=== PATIENT | male | born 1945 | race Caucasian/White ===

== ENCOUNTER 2017-11-06 20:31 | Emergency (ER) | payer MEDICARE ==
[2017-11-06] MEDS: ACETAMINOPHEN 325 MG TAB PO (21:45)
[2017-11-06 22:21] LABS: INFLUENZA A AMPLIFICATION NEGATIVE (NEGATIVE); INFLUENZA B AMPLIFICATION NEGATIVE (NEGATIVE)
[2017-11-06 22:54] LABS: BASO # 0.1 10^3/uL (0.0-0.2); BASO % 0.4 % (0.0-1.0); EOS % 0.3 % (0.0-3.0); HEMATOCRIT 44.7 % (42.0-52.0); HEMOGLOBIN 15.8 g/dl (14.0-18.0); IMMATURE GRANULOCYTE % 0.8 % (0-3.0); LYMPH # 0.5 10^3/uL (1.5-4.5); LYMPH % 4.4 % (24.0-44.0); MEAN CORPUSCULAR HEMOGLOBIN 31.7 pg (27.0-33.0); MEAN CORPUSCULAR HGB CONC 35.3 g/dl (32.0-36.5); MEAN CORPUSCULAR VOLUME 89.8 fl (80.0-96.0); NEUTROPHILS # 10.3 10^3/uL (1.8-7.7); NEUTROPHILS % 86.1 % (36.0-66.0); PLATELET COUNT, AUTOMATED 123 10^3/uL (150-450); RED BLOOD COUNT 4.98 10^6/uL (4.30-6.10); RED CELL DISTRIBUTION WIDTH 13.6 % (11.5-14.5)
[2017-11-06 23:06] LABS: INR 2.37; PROTHROMBIN TIME 26.8 SECONDS (12.4-14.5)
[2017-11-06 23:07] LABS: PARTIAL THROMBOPLASTIN TIME 50.4 SECONDS (26.8-37.9)
[2017-11-06 23:08] LABS: LACTIC ACID SEPSIS PROTOCOL 1.5 MMOL/L (0.4-2.0)
[2017-11-06 23:10] LABS: ANION GAP 8 MEQ/L (8-16); BLOOD UREA NITROGEN 23 MG/DL (7-18); CALCIUM LEVEL 8.9 MG/DL (8.8-10.2); CARBON DIOXIDE LEVEL 26 MEQ/L (21-32); CHLORIDE LEVEL 99 MEQ/L (98-107); CREATININE FOR GFR 1.24 MG/DL (0.70-1.30); GLOMERULAR FILTRATION RATE > 60.0 (>42); GLUCOSE, FASTING 383 MG/DL (70-100); POTASSIUM SERUM 4.5 MEQ/L (3.5-5.1); SODIUM LEVEL 133 MEQ/L (136-145)
[2017-11-06] MEDS: AZITHROMYCIN 250 MG TAB PO (23:54)
[2017-11-06] MEDS: CEFUROXIME 500 MG TAB PO (23:55)
== END 2017-11-07 00:04 | disposition home or self-care (01) ==
LOC: M ED 11-07 00:04
DX: J18.9 Pneumonia, unspecified organism (principal); E11.9 Type 2 diabetes mellitus without complications; I10 Essential (primary) hypertension; E78.5 Hyperlipidemia, unspecified; Z95.1 Presence of aortocoronary bypass graft; Z95.0 Presence of cardiac pacemaker; Z87.891 Personal history of nicotine dependence; Z79.899 Other long term (current) drug therapy; Z79.82 Long term (current) use of aspirin; Z79.01 Long term (current) use of anticoagulants
CPT/HCPCS: 71046

== ENCOUNTER 2018-07-05 11:13 | Inpatient (IN) | payer OTHER ==
[2018-07-05 11:59] LABS: BASO % 0.3 % (0.0-1.0); EOS % 0.2 % (0.0-3.0); HEMATOCRIT 45.9 % (42.0-52.0); HEMOGLOBIN 16.2 g/dl (13.5-17.5); IMMATURE GRANULOCYTE % 0.3 % (0-3.0); LYMPH # 0.9 10^3/uL (1.5-4.5); LYMPH % 7.7 % (24.0-44.0); MEAN CORPUSCULAR HEMOGLOBIN 32.1 pg (27.0-33.0); MEAN CORPUSCULAR HGB CONC 35.3 g/dl (32.0-36.5); MEAN CORPUSCULAR VOLUME 90.9 fl (80.0-96.0); MONO # 0.8 10^3/uL (0.0-0.8); MONO % 6.7 % (0.0-5.0); NEUTROPHILS # 9.7 10^3/uL (1.8-7.7); NEUTROPHILS % 84.8 % (36.0-66.0); PLATELET COUNT, AUTOMATED 159 10^3/uL (150-450); RED BLOOD COUNT 5.05 10^6/uL (4.30-6.10); RED CELL DISTRIBUTION WIDTH 14.2 % (11.5-14.5); WHITE BLOOD COUNT 11.5 10^3/uL (4.0-10.0)
[2018-07-05 12:08] LABS: INR 1.99
[2018-07-05 12:09] LABS: PARTIAL THROMBOPLASTIN TIME 38.6 SECONDS (25.4-37.6)
[2018-07-05 12:27] LABS: ANION GAP 9 MEQ/L (8-16); BLOOD UREA NITROGEN 21 MG/DL (7-18); CALCIUM LEVEL 9.1 MG/DL (8.8-10.2); CARBON DIOXIDE LEVEL 25 MEQ/L (21-32); CHLORIDE LEVEL 102 MEQ/L (98-107); CPK CREATINE PHOSPHOKINASE 114 U/L (39-308); CREATININE FOR GFR 1.09 MG/DL (0.70-1.30); GLOMERULAR FILTRATION RATE > 60.0 (>42); GLUCOSE, FASTING 227 MG/DL (70-100); MB/CK RELATIVE INDEX 2.98 (< OR =4); POTASSIUM SERUM 4.3 MEQ/L (3.5-5.1); SODIUM LEVEL 136 MEQ/L (136-145); TROPONIN I < 0.02 NG/ML (< 0.10)
[2018-07-05] MEDS ORDERED: ISOVUE-370 76% 100ML VIAL (Q9967) As Ordered (12:34)
[2018-07-05] MEDS ORDERED: ACETAMINOPHEN TAB 650MG DOSE (2X325MG) PO (15:30)
[2018-07-05] MEDS ORDERED: DEXTROSE 50% 50 ML SYRINGE IV (16:00)
[2018-07-05] MEDS ORDERED: GLUCAGON FOR INJ 1 MG VIAL (J1610) SC (16:00)
[2018-07-05] MEDS ORDERED: GLUCOSE 4 GM CHEW TABLET PO (16:00)
[2018-07-05 16:40] LABS: PARTIAL THROMBOPLASTIN TIME 38.6 SECONDS (25.4-37.6)
[2018-07-05] MEDS: HEPARIN DRIP 25,000 UNITS in APPROPRIATE DILUENT 1 EA IV (17:37)
[2018-07-05 17:39] LABS: BEDSIDE GLUCOSE 174 MG/DL (83-110)
[2018-07-05] MEDS: WARFARIN SOD 5 MG TAB PO (17:42)
[2018-07-05] MEDS: HumaLOG INSULIN (NovoLOG) PER UNIT SC ×2 (17:43→20:44)
[2018-07-05 18:43] LABS: CPK CREATINE PHOSPHOKINASE 119 U/L (39-308); MB/CK RELATIVE INDEX 2.69 (< OR =4); TROPONIN I 0.03 NG/ML (< 0.10)
[2018-07-05 20:38] LABS: BEDSIDE GLUCOSE 289 MG/DL (83-110)
[2018-07-05] MEDS: SIMVASTATIN 40 MG TAB PO (20:43)
[2018-07-06 00:36] LABS: PARTIAL THROMBOPLASTIN TIME 111.1 SECONDS (25.4-37.6)
[2018-07-06 02:58] LABS: CPK CREATINE PHOSPHOKINASE 163 U/L (39-308); TROPONIN I 0.04 NG/ML (< 0.10)
[2018-07-06 05:10] LABS: HEMATOCRIT 43.2 % (42.0-52.0); HEMOGLOBIN 15.3 g/dl (13.5-17.5); MEAN CORPUSCULAR HEMOGLOBIN 31.7 pg (27.0-33.0); MEAN CORPUSCULAR HGB CONC 35.4 g/dl (32.0-36.5); MEAN CORPUSCULAR VOLUME 89.4 fl (80.0-96.0); PLATELET COUNT, AUTOMATED 150 10^3/uL (150-450); RED BLOOD COUNT 4.83 10^6/uL (4.30-6.10); WHITE BLOOD COUNT 11.7 10^3/uL (4.0-10.0)
[2018-07-06 05:34] LABS: ALBUMIN 3.7 GM/DL (3.2-5.2); ALBUMIN/GLOBULIN RATIO 1.12 (1.00-1.93); ALKALINE PHOSPHATASE 80 U/L (45-117); ALT/SGPT 28 U/L (12-78); ANION GAP 10 MEQ/L (8-16); AST/SGOT 24 U/L (7-37); BILIRUBIN,TOTAL 1.4 MG/DL (0.2-1.0); BLOOD UREA NITROGEN 16 MG/DL (7-18); CALCIUM LEVEL 8.9 MG/DL (8.8-10.2); CARBON DIOXIDE LEVEL 25 MEQ/L (21-32); CHLORIDE LEVEL 104 MEQ/L (98-107); CHOLESTEROL LEVEL 123 MG/DL (<200); CHOLESTEROL RISK RATIO 2.562 (<5); CREATININE FOR GFR 0.88 MG/DL (0.70-1.30); GLOMERULAR FILTRATION RATE > 60.0 (>42); GLUCOSE, FASTING 182 MG/DL (70-100); HDL CHOLESTEROL 48 MG/DL (>40); LDL CHOLESTEROL 66 MG/DL (<100); NON-HDL-C 75 MG/DL; POTASSIUM SERUM 3.8 MEQ/L (3.5-5.1); SODIUM LEVEL 139 MEQ/L (136-145); TRIGLYCERIDES LEVEL 47 MG/DL (<150)
[2018-07-06 05:38] LABS: INR 2.39; PROTHROMBIN TIME 26.6 SECONDS (12.1-14.4)
[2018-07-06 08:46] LABS: PARTIAL THROMBOPLASTIN TIME 146.9 SECONDS (25.4-37.6)
[2018-07-06] MEDS: LISINOPRIL 20 MG TAB PO (09:22)
[2018-07-06] MEDS: ASPIRIN 81 MG ENTERIC TAB PO (09:22)
[2018-07-06] MEDS: HumaLOG INSULIN (NovoLOG) PER UNIT SC ×4 (09:22→20:32)
[2018-07-06 10:47] LABS: CPK CREATINE PHOSPHOKINASE 188 U/L (39-308); MB/CK RELATIVE INDEX 2.13 (< OR =4); TROPONIN I 0.03 NG/ML (< 0.10)
[2018-07-06 11:19] LABS: BEDSIDE GLUCOSE 258 MG/DL (83-110)
[2018-07-06] MEDS: HEPARIN DRIP 25,000 UNITS in APPROPRIATE DILUENT 1 EA IV (13:22)
[2018-07-06 16:34] LABS: PARTIAL THROMBOPLASTIN TIME 56.8 SECONDS (25.4-37.6)
[2018-07-06 16:53] LABS: BEDSIDE GLUCOSE 281 MG/DL (83-110)
[2018-07-06] MEDS: HEPARIN SOD (PORCINE) 5000 UNITS/ML VIAL IV (17:02)
[2018-07-06 19:44] LABS: BEDSIDE GLUCOSE 257 MG/DL (83-110)
[2018-07-06] MEDS: SIMVASTATIN 40 MG TAB PO (20:31)
[2018-07-07] MEDS ORDERED: SLF 3 ML SYR IV (00:45)
[2018-07-07] MEDS: SLF 3 ML SYR IV ×3 (05:14→22:00)
[2018-07-07 06:41] LABS: HEMATOCRIT 44.9 % (42.0-52.0); HEMOGLOBIN 15.8 g/dl (13.5-17.5); MEAN CORPUSCULAR HEMOGLOBIN 32.1 pg (27.0-33.0); MEAN CORPUSCULAR HGB CONC 35.2 g/dl (32.0-36.5); MEAN CORPUSCULAR VOLUME 91.3 fl (80.0-96.0); PLATELET COUNT, AUTOMATED 154 10^3/uL (150-450); RED BLOOD COUNT 4.92 10^6/uL (4.30-6.10); RED CELL DISTRIBUTION WIDTH 14.3 % (11.5-14.5); WHITE BLOOD COUNT 11.3 10^3/uL (4.0-10.0)
[2018-07-07 06:51] LABS: INR 2.17; PROTHROMBIN TIME 24.6 SECONDS (12.1-14.4)
[2018-07-07 06:52] LABS: PARTIAL THROMBOPLASTIN TIME 54.6 SECONDS (25.4-37.6)
[2018-07-07 07:04] LABS: ALBUMIN 3.5 GM/DL (3.2-5.2); ALBUMIN/GLOBULIN RATIO 1.06 (1.00-1.93); ALKALINE PHOSPHATASE 89 U/L (45-117); ALT/SGPT 24 U/L (12-78); ANION GAP 6 MEQ/L (8-16); AST/SGOT 28 U/L (7-37); BILIRUBIN,TOTAL 1.4 MG/DL (0.2-1.0); BLOOD UREA NITROGEN 18 MG/DL (7-18); CALCIUM LEVEL 8.7 MG/DL (8.8-10.2); CARBON DIOXIDE LEVEL 27 MEQ/L (21-32); CHLORIDE LEVEL 103 MEQ/L (98-107); CREATININE FOR GFR 1.02 MG/DL (0.70-1.30); GLOMERULAR FILTRATION RATE > 60.0 (>42); GLUCOSE, FASTING 232 MG/DL (70-100); POTASSIUM SERUM 4.1 MEQ/L (3.5-5.1); SODIUM LEVEL 136 MEQ/L (136-145); TOTAL PROTEIN 6.8 GM/DL (6.4-8.2)
[2018-07-07] MEDS: LISINOPRIL 20 MG TAB PO (07:36)
[2018-07-07] MEDS: HumaLOG INSULIN (NovoLOG) PER UNIT SC ×4 (07:36→21:00)
[2018-07-07] MEDS: HEPARIN SOD (PORCINE) 5000 UNITS/ML VIAL IV (07:37)
[2018-07-07] MEDS: ASPIRIN 81 MG ENTERIC TAB PO (07:37)
[2018-07-07] MEDS ORDERED: FLUBLOK(EGG FREE)(QUAD)INFLUENZA VACC 0.5ML SYRINGE (90682)18YRS&OLDER IM (09:00)
[2018-07-07 11:46] LABS: BEDSIDE GLUCOSE 268 MG/DL (83-110)
[2018-07-07 13:24] LABS: ESTIMATED AVERAGE GLUCOSE 163 MG/DL (60-110); HEMOGLOBIN A1c 7.3 %
[2018-07-07] MEDS: HEPARIN DRIP 25,000 UNITS in APPROPRIATE DILUENT 1 EA IV (14:06)
[2018-07-07 14:23] LABS: INR 2.11; PROTHROMBIN TIME 24.1 SECONDS (12.1-14.4)
[2018-07-07 14:25] LABS: PARTIAL THROMBOPLASTIN TIME 72.6 SECONDS (25.4-37.6)
[2018-07-07 16:57] LABS: BEDSIDE GLUCOSE 211 MG/DL (83-110)
[2018-07-07] MEDS: WARFARIN SOD 7.5 MG TAB PO (17:01)
[2018-07-07 20:24] LABS: PARTIAL THROMBOPLASTIN TIME 66.2 SECONDS (25.4-37.6)
[2018-07-07 21:12] LABS: BEDSIDE GLUCOSE 125 MG/DL (83-110)
[2018-07-07] MEDS: SIMVASTATIN 40 MG TAB PO (21:33)
[2018-07-08] MEDS: SLF 3 ML SYR IV ×3 (06:00→22:00)
[2018-07-08 06:19] LABS: HEMATOCRIT 43.4 % (42.0-52.0); HEMOGLOBIN 15.1 g/dl (13.5-17.5); MEAN CORPUSCULAR HGB CONC 34.8 g/dl (32.0-36.5); MEAN CORPUSCULAR VOLUME 91.9 fl (80.0-96.0); PLATELET COUNT, AUTOMATED 154 10^3/uL (150-450); RED BLOOD COUNT 4.72 10^6/uL (4.30-6.10); RED CELL DISTRIBUTION WIDTH 14.5 % (11.5-14.5); WHITE BLOOD COUNT 12.3 10^3/uL (4.0-10.0)
[2018-07-08 06:30] LABS: INR 2.15; PROTHROMBIN TIME 24.4 SECONDS (12.1-14.4)
[2018-07-08 06:39] LABS: ALBUMIN 3.4 GM/DL (3.2-5.2); ALKALINE PHOSPHATASE 90 U/L (45-117); ALT/SGPT 26 U/L (12-78); ANION GAP 6 MEQ/L (8-16); AST/SGOT 25 U/L (7-37); BILIRUBIN,TOTAL 1.8 MG/DL (0.2-1.0); BLOOD UREA NITROGEN 19 MG/DL (7-18); CARBON DIOXIDE LEVEL 28 MEQ/L (21-32); CHLORIDE LEVEL 102 MEQ/L (98-107); CREATININE FOR GFR 1.12 MG/DL (0.70-1.30); GLOMERULAR FILTRATION RATE > 60.0 (>42); GLUCOSE, FASTING 185 MG/DL (70-100); POTASSIUM SERUM 4.8 MEQ/L (3.5-5.1); SODIUM LEVEL 136 MEQ/L (136-145); TOTAL PROTEIN 6.8 GM/DL (6.4-8.2)
[2018-07-08] MEDS: LISINOPRIL 20 MG TAB PO (08:24)
[2018-07-08] MEDS: ASPIRIN 81 MG ENTERIC TAB PO (08:24)
[2018-07-08] MEDS: HumaLOG INSULIN (NovoLOG) PER UNIT SC ×4 (08:26→21:00)
[2018-07-08] MEDS: FLUBLOK(EGG FREE)(QUAD)INFLUENZA VACC 0.5ML SYRINGE (90682)18YRS&OLDER IM (08:27)
[2018-07-08] MEDS: HEPARIN DRIP 25,000 UNITS in APPROPRIATE DILUENT 1 EA IV ×2 (12:32→17:26)
[2018-07-08 13:14] LABS: BEDSIDE GLUCOSE 347 MG/DL (83-110)
[2018-07-08 16:33] LABS: BEDSIDE GLUCOSE 139 MG/DL (83-110)
[2018-07-08] MEDS: WARFARIN SOD 7.5 MG TAB PO (17:24)
[2018-07-08] MEDS: SIMVASTATIN 40 MG TAB PO (20:11)
[2018-07-09] MEDS: SLF 3 ML SYR IV (05:36)
[2018-07-09 07:14] LABS: HEMATOCRIT 39.1 % (42.0-52.0); HEMOGLOBIN 13.6 g/dl (13.5-17.5); MEAN CORPUSCULAR HEMOGLOBIN 31.9 pg (27.0-33.0); MEAN CORPUSCULAR HGB CONC 34.8 g/dl (32.0-36.5); MEAN CORPUSCULAR VOLUME 91.6 fl (80.0-96.0); PLATELET COUNT, AUTOMATED 131 10^3/uL (150-450); RED BLOOD COUNT 4.27 10^6/uL (4.30-6.10); RED CELL DISTRIBUTION WIDTH 14.3 % (11.5-14.5); WHITE BLOOD COUNT 10.4 10^3/uL (4.0-10.0)
[2018-07-09 07:23] LABS: INR 2.94; PROTHROMBIN TIME 31.3 SECONDS (12.1-14.4)
[2018-07-09 07:31] LABS: ALBUMIN 3.3 GM/DL (3.2-5.2); ALKALINE PHOSPHATASE 78 U/L (45-117); ALT/SGPT 37 U/L (12-78); ANION GAP 7 MEQ/L (8-16); AST/SGOT 36 U/L (7-37); BILIRUBIN,TOTAL 1.3 MG/DL (0.2-1.0); BLOOD UREA NITROGEN 16 MG/DL (7-18); CALCIUM LEVEL 8.8 MG/DL (8.8-10.2); CARBON DIOXIDE LEVEL 26 MEQ/L (21-32); CHLORIDE LEVEL 104 MEQ/L (98-107); CREATININE FOR GFR 0.89 MG/DL (0.70-1.30); GLOMERULAR FILTRATION RATE > 60.0 (>42); GLUCOSE, FASTING 213 MG/DL (70-100); SODIUM LEVEL 137 MEQ/L (136-145); TOTAL PROTEIN 6.3 GM/DL (6.4-8.2)
[2018-07-09] MEDS: HumaLOG INSULIN (NovoLOG) PER UNIT SC ×2 (08:03→12:09)
[2018-07-09] MEDS: LISINOPRIL 20 MG TAB PO (08:03)
[2018-07-09] MEDS: ASPIRIN 81 MG ENTERIC TAB PO (08:03)
[2018-07-10 02:14] LABS: BEDSIDE GLUCOSE 193 MG/DL (83-110)
[2018-07-10 02:14] LABS: BEDSIDE GLUCOSE 234 MG/DL (83-110)
== END 2018-07-09 12:40 | disposition home or self-care (01) | DRG 69 ==
LOC: M MS5PR 07-07 18:17 → M ED 11:13 → M ED INP 15:41 → M PCU 17:03
DX: G45.9 Transient cerebral ischemic attack, unspecified (principal); G31.9 Degenerative disease of nervous system, unspecified; I48.0 Paroxysmal atrial fibrillation; R79.1 Abnormal coagulation profile; I25.10 Atherosclerotic heart disease of native coronary artery without angina pectoris; E78.5 Hyperlipidemia, unspecified; I10 Essential (primary) hypertension; E11.9 Type 2 diabetes mellitus without complications; Z86.73 Personal history of transient ischemic attack (TIA), and cerebral infarction without residual deficits; Z95.0 Presence of cardiac pacemaker; Z87.891 Personal history of nicotine dependence; Z79.82 Long term (current) use of aspirin; Z79.01 Long term (current) use of anticoagulants; Z95.2 Presence of prosthetic heart valve; Z95.1 Presence of aortocoronary bypass graft; Z79.84 Long term (current) use of oral hypoglycemic drugs; Z79.899 Other long term (current) drug therapy

== ENCOUNTER → 2018-07-05 | Outpatient (CLI) | payer OTHER, MEDICARE | LOC: M RAD 07:36 | DX: G31.9 Degenerative disease of nervous system, unspecified (principal); R41.82 Altered mental status, unspecified ==

== ENCOUNTER → 2018-07-05 | Outpatient (CLI) | payer OTHER ==
[2018-07-05 08:13] LABS: HEMOGLOBIN 15.7 g/dl (13.5-17.5); MEAN CORPUSCULAR HGB CONC 34.9 g/dl (32.0-36.5); MEAN CORPUSCULAR VOLUME 91.8 fl (80.0-96.0); PLATELET COUNT, AUTOMATED 148 10^3/uL (150-450); RED CELL DISTRIBUTION WIDTH 14.2 % (11.5-14.5); WHITE BLOOD COUNT 11.7 10^3/uL (4.0-10.0)
[2018-07-05 08:42] LABS: ANION GAP 9 MEQ/L (8-16); BLOOD UREA NITROGEN 21 MG/DL (7-18); CALCIUM LEVEL 8.9 MG/DL (8.8-10.2); CARBON DIOXIDE LEVEL 27 MEQ/L (21-32); CHLORIDE LEVEL 100 MEQ/L (98-107); CREATININE FOR GFR 1.06 MG/DL (0.70-1.30); GLOMERULAR FILTRATION RATE > 60.0 (>42); GLUCOSE, FASTING 223 MG/DL (70-100); SODIUM LEVEL 136 MEQ/L (136-145)
== END ==
LOC: M LAB 07:33
DX: I48.0 Paroxysmal atrial fibrillation (principal); Z86.73 Personal history of transient ischemic attack (TIA), and cerebral infarction without residual deficits

== ENCOUNTER 2018-08-13 16:08 | Inpatient (IN) | payer OTHER ==
[2018-08-13 16:25] LABS: BEDSIDE GLUCOSE 139 MG/DL (83-110)
[2018-08-13 16:44] LABS: BASO # 0.1 10^3/uL (0.0-0.2); BASO % 0.5 % (0.0-1.0); EOS # 0.1 10^3/uL (0.0-0.50); EOS % 1.2 % (0.0-3.0); HEMATOCRIT 42.4 % (42.0-52.0); HEMOGLOBIN 14.9 g/dl (13.5-17.5); IMMATURE GRANULOCYTE % 0.6 % (0-3.0); LYMPH # 1.4 10^3/uL (1.5-4.5); LYMPH % 13.5 % (24.0-44.0); MEAN CORPUSCULAR HEMOGLOBIN 32.3 pg (27.0-33.0); MEAN CORPUSCULAR HGB CONC 35.1 g/dl (32.0-36.5); MONO # 0.8 10^3/uL (0.0-0.8); MONO % 7.9 % (0.0-5.0); NEUTROPHILS # 7.6 10^3/uL (1.8-7.7); NEUTROPHILS % 76.3 % (36.0-66.0); PLATELET COUNT, AUTOMATED 165 10^3/uL (150-450); RED BLOOD COUNT 4.61 10^6/uL (4.30-6.10); RED CELL DISTRIBUTION WIDTH 14.6 % (11.5-14.5)
[2018-08-13 16:58] LABS: INR 2.38; PROTHROMBIN TIME 26.5 SECONDS (12.1-14.4)
[2018-08-13 16:59] LABS: PARTIAL THROMBOPLASTIN TIME 38.6 SECONDS (25.4-37.6)
[2018-08-13 17:19] LABS: ANION GAP 9 MEQ/L (8-16); BLOOD UREA NITROGEN 23 MG/DL (7-18); CALCIUM LEVEL 8.6 MG/DL (8.8-10.2); CARBON DIOXIDE LEVEL 27 MEQ/L (21-32); CHLORIDE LEVEL 99 MEQ/L (98-107); CPK CREATINE PHOSPHOKINASE 95 U/L (39-308); CREATININE FOR GFR 1.07 MG/DL (0.70-1.30); GLOMERULAR FILTRATION RATE > 60.0 (>42); GLUCOSE, FASTING 141 MG/DL (70-100); MB/CK RELATIVE INDEX 2.95 (< OR =4); POTASSIUM SERUM 4.1 MEQ/L (3.5-5.1); SODIUM LEVEL 135 MEQ/L (136-145); TROPONIN I < 0.02 NG/ML (< 0.10)
[2018-08-13] MEDS: WARFARIN SOD 5 MG TAB PO (19:45)
[2018-08-13] MEDS ORDERED: HEPARIN SOD (PORCINE) 5000 UNITS/ML VIAL IV ×2 (19:45→21:15)
[2018-08-13] MEDS: HEPARIN DRIP 25,000 UNITS in APPROPRIATE DILUENT 1 EA IV (20:15)
[2018-08-13 20:19] LABS: AMMONIA 21 uMOL/L (<32)
[2018-08-13] MEDS ORDERED: GLUCOSE 4 GM CHEW TABLET PO (21:30)
[2018-08-13] MEDS ORDERED: ONDANSETRON 4MG/2ML VIAL (J2405) IV (21:30)
[2018-08-13] MEDS ORDERED: GLUCAGON FOR INJ 1 MG VIAL (J1610) SC (21:30)
[2018-08-13] MEDS ORDERED: DEXTROSE 50% 50 ML SYRINGE IV (21:30)
[2018-08-13 22:50] LABS: PARTIAL THROMBOPLASTIN TIME 64.4 SECONDS (25.4-37.6)
[2018-08-13 22:57] LABS: CPK CREATINE PHOSPHOKINASE 81 U/L (39-308); MB/CK RELATIVE INDEX 2.96 (< OR =4); TROPONIN I 0.02 NG/ML (< 0.10)
[2018-08-14 03:01] LABS: HEMATOCRIT 41.2 % (42.0-52.0); HEMOGLOBIN 14.2 g/dl (13.5-17.5); MEAN CORPUSCULAR HGB CONC 34.5 g/dl (32.0-36.5); MEAN CORPUSCULAR VOLUME 92.8 fl (80.0-96.0); PLATELET COUNT, AUTOMATED 134 10^3/uL (150-450); RED BLOOD COUNT 4.44 10^6/uL (4.30-6.10); RED CELL DISTRIBUTION WIDTH 14.3 % (11.5-14.5); WHITE BLOOD COUNT 8.9 10^3/uL (4.0-10.0)
[2018-08-14 03:10] LABS: INR 2.28; PROTHROMBIN TIME 25.5 SECONDS (12.1-14.4)
[2018-08-14 03:12] LABS: PARTIAL THROMBOPLASTIN TIME 115.2 SECONDS (25.4-37.6)
[2018-08-14 03:25] LABS: ANION GAP 6 MEQ/L (8-16); BLOOD UREA NITROGEN 18 MG/DL (7-18); CALCIUM LEVEL 8.4 MG/DL (8.8-10.2); CARBON DIOXIDE LEVEL 28 MEQ/L (21-32); CHLORIDE LEVEL 104 MEQ/L (98-107); CPK CREATINE PHOSPHOKINASE 70 U/L (39-308); CREATININE FOR GFR 0.96 MG/DL (0.70-1.30); GLOMERULAR FILTRATION RATE > 60.0 (>42); GLUCOSE, FASTING 146 MG/DL (70-100); MAGNESIUM LEVEL 2.1 MG/DL (1.8-2.4); MB/CK RELATIVE INDEX 2.86 (< OR =4); POTASSIUM SERUM 4.2 MEQ/L (3.5-5.1); SODIUM LEVEL 138 MEQ/L (136-145); TROPONIN I < 0.02 NG/ML (< 0.10)
[2018-08-14 06:52] LABS: BEDSIDE GLUCOSE 171 MG/DL (83-110)
[2018-08-14] MEDS: HumaLOG INSULIN (NovoLOG) PER UNIT SC ×4 (08:50→20:03)
[2018-08-14] MEDS: LISINOPRIL 20 MG TAB PO (08:51)
[2018-08-14] MEDS: ASPIRIN 81 MG ENTERIC TAB PO (08:51)
[2018-08-14] MEDS: PREVNAR 13 VACCINE SYRINGE (CPT CODE:90670) IM (08:52)
[2018-08-14] MEDS: DOCUSATE SODIUM 100 MG CAP PO ×2 (08:52→20:03)
[2018-08-14 10:24] LABS: PARTIAL THROMBOPLASTIN TIME 86.3 SECONDS (25.4-37.6)
[2018-08-14 14:08] LABS: BEDSIDE GLUCOSE 157 MG/DL (83-110)
[2018-08-14 15:28] LABS: PARTIAL THROMBOPLASTIN TIME 77.2 SECONDS (25.4-37.6)
[2018-08-14] MEDS ORDERED: WARFARIN SOD 7.5 MG TAB PO (17:00)
[2018-08-14] MEDS: WARFARIN SOD 5 MG TAB PO (17:06)
[2018-08-14] MEDS: HEPARIN DRIP 25,000 UNITS in APPROPRIATE DILUENT 1 EA IV (17:08)
[2018-08-14 17:20] LABS: BEDSIDE GLUCOSE 217 MG/DL (83-110)
[2018-08-14] MEDS: SIMVASTATIN 40 MG TAB PO (20:03)
[2018-08-14 20:11] LABS: BEDSIDE GLUCOSE 187 MG/DL (83-110)
[2018-08-15 06:09] LABS: HEMATOCRIT 43.1 % (42.0-52.0); HEMOGLOBIN 14.6 g/dl (13.5-17.5); MEAN CORPUSCULAR HEMOGLOBIN 31.8 pg (27.0-33.0); MEAN CORPUSCULAR HGB CONC 33.9 g/dl (32.0-36.5); MEAN CORPUSCULAR VOLUME 93.9 fl (80.0-96.0); PLATELET COUNT, AUTOMATED 141 10^3/uL (150-450); RED BLOOD COUNT 4.59 10^6/uL (4.30-6.10); RED CELL DISTRIBUTION WIDTH 14.6 % (11.5-14.5); WHITE BLOOD COUNT 8.5 10^3/uL (4.0-10.0)
[2018-08-15 06:26] LABS: INR 3.04; PROTHROMBIN TIME 32.1 SECONDS (12.1-14.4)
[2018-08-15 06:35] LABS: ANION GAP 7 MEQ/L (8-16); BLOOD UREA NITROGEN 20 MG/DL (7-18); CALCIUM LEVEL 8.8 MG/DL (8.8-10.2); CARBON DIOXIDE LEVEL 26 MEQ/L (21-32); CHLORIDE LEVEL 103 MEQ/L (98-107); CREATININE FOR GFR 0.99 MG/DL (0.70-1.30); GLOMERULAR FILTRATION RATE > 60.0 (>42); GLUCOSE, FASTING 206 MG/DL (70-100); POTASSIUM SERUM 4.4 MEQ/L (3.5-5.1); SODIUM LEVEL 136 MEQ/L (136-145)
[2018-08-15 06:39] LABS: PARTIAL THROMBOPLASTIN TIME 145.8 SECONDS (25.4-37.6)
[2018-08-15] MEDS: HumaLOG INSULIN (NovoLOG) PER UNIT SC ×4 (08:12→20:57)
[2018-08-15] MEDS: ASPIRIN 81 MG ENTERIC TAB PO (08:13)
[2018-08-15] MEDS: DOCUSATE SODIUM 100 MG CAP PO ×2 (08:13→20:56)
[2018-08-15] MEDS: LISINOPRIL 20 MG TAB PO (08:17)
[2018-08-15 12:00] LABS: BEDSIDE GLUCOSE 191 MG/DL (83-110)
[2018-08-15] MEDS: METOPROLOL TART 25 MG TABLET PO (12:50)
[2018-08-15 17:09] LABS: BEDSIDE GLUCOSE 178 MG/DL (83-110)
[2018-08-15] MEDS: WARFARIN SOD 4 MG TAB PO (17:17)
[2018-08-15 20:06] LABS: BEDSIDE GLUCOSE 261 MG/DL (83-110)
[2018-08-15] MEDS: SIMVASTATIN 40 MG TAB PO (20:56)
[2018-08-15] MEDS: METOPROLOL TART 12.5 MG PER 1/2 TAB PO (20:56)
[2018-08-16 06:52] LABS: HEMATOCRIT 41.7 % (42.0-52.0); HEMOGLOBIN 14.5 g/dl (13.5-17.5); MEAN CORPUSCULAR HEMOGLOBIN 32.2 pg (27.0-33.0); MEAN CORPUSCULAR HGB CONC 34.8 g/dl (32.0-36.5); MEAN CORPUSCULAR VOLUME 92.5 fl (80.0-96.0); PLATELET COUNT, AUTOMATED 145 10^3/uL (150-450); RED BLOOD COUNT 4.51 10^6/uL (4.30-6.10); RED CELL DISTRIBUTION WIDTH 14.6 % (11.5-14.5); WHITE BLOOD COUNT 8.7 10^3/uL (4.0-10.0)
[2018-08-16 07:05] LABS: INR 3.98; PROTHROMBIN TIME 39.8 SECONDS (12.1-14.4)
[2018-08-16 07:11] LABS: ANION GAP 8 MEQ/L (8-16); BLOOD UREA NITROGEN 20 MG/DL (7-18); CALCIUM LEVEL 8.5 MG/DL (8.8-10.2); CARBON DIOXIDE LEVEL 26 MEQ/L (21-32); CHLORIDE LEVEL 102 MEQ/L (98-107); CREATININE FOR GFR 1.01 MG/DL (0.70-1.30); GLOMERULAR FILTRATION RATE > 60.0 (>42); GLUCOSE, FASTING 185 MG/DL (70-100); MAGNESIUM LEVEL 2.1 MG/DL (1.8-2.4); POTASSIUM SERUM 4.2 MEQ/L (3.5-5.1); SODIUM LEVEL 136 MEQ/L (136-145)
[2018-08-16] MEDS: DOCUSATE SODIUM 100 MG CAP PO (09:00)
[2018-08-16] MEDS: HumaLOG INSULIN (NovoLOG) PER UNIT SC ×2 (10:26→12:49)
[2018-08-16] MEDS: LISINOPRIL 20 MG TAB PO (10:27)
[2018-08-16] MEDS: ASPIRIN 81 MG ENTERIC TAB PO (10:27)
[2018-08-16] MEDS: METOPROLOL TART 25 MG TABLET PO (10:27)
[2018-08-16 11:35] LABS: BEDSIDE GLUCOSE 231 MG/DL (83-110)
[2018-08-16] MEDS: levETIRAcetam 250MG TABLET (KEPPRA) PO (14:45)
== END 2018-08-16 16:15 | disposition home or self-care (01) | DRG 101 ==
LOC: M PCU 08-14 → M MSPAV 08-15 23:40 → M ED 16:08 → M ED INP 21:17
PROVIDERS: Hospitalist
DX: R56.9 Unspecified convulsions (principal); G45.9 Transient cerebral ischemic attack, unspecified; I47.2 Ventricular tachycardia; I25.10 Atherosclerotic heart disease of native coronary artery without angina pectoris; E78.5 Hyperlipidemia, unspecified; I10 Essential (primary) hypertension; E11.9 Type 2 diabetes mellitus without complications; Z86.73 Personal history of transient ischemic attack (TIA), and cerebral infarction without residual deficits; Z95.0 Presence of cardiac pacemaker; Z87.891 Personal history of nicotine dependence; Z79.82 Long term (current) use of aspirin; Z79.84 Long term (current) use of oral hypoglycemic drugs; Z95.1 Presence of aortocoronary bypass graft; Z95.2 Presence of prosthetic heart valve; Z79.01 Long term (current) use of anticoagulants; Z79.899 Other long term (current) drug therapy

== ENCOUNTER → 2018-10-01 | Outpatient (CLI) | payer OTHER ==
[~2018-10-01] MED LIST: /ATOR40TA; /WARF25TA PO; /WARF5TA; ACET65TA; ALOP5TAB; ASPI1TAB PO; AZIT-12 PO; BABY81CH PO; CEFU50TA PO; COLA100C2; COUM1TAB14 PO; COUM2TAB22 PO; COUM7.5T PO; COUMADIN; DELS30LI4 PO; GLIP5TAB20 PO; GLIP5TAB8 PO; KEPP1TAB PO; KEPP250T5 PO; LISI-538 PO; LISI20TA5; LISI20TA5 PO; LISIPOW; METO1TAB87 PO; NOVOLOG100 MG/ML; SIMV40TA2 PO; THERGRAN; TOPR50TA; TOPROL; TOPROL XL; TRAD5TAB PO; TUMS500C; WARF-23 PO; XANA0.25; ZOCO40TA PO; [UNRECOGNIZED DRUG - CODE]
--- NOTE | 2018-10-02 04:28 | REP ---
Clinical: Left-sided chest pain Technique: Frontal view of the chest with multiple views of the left hemithorax. Findings: Frontal view of the chest demonstrates pacemaker, sternotomy, CABG, and valve repair without acute cardiopulmonary process. A very subtle nondisplaced fracture along the lateral margin of the left eighth rib of indeterminate age is suggested. Impression: Cannot exclude subtle nondisplaced left eighth rib fracture of indeterminate age. Electronically Signed by Schuyler Dunham MD 10/02/2018 04:20 A
== END ==
LOC: M WUC 18:21
PROVIDERS: ATTEND Physician Assistant
DX: R07.9 Chest pain, unspecified (principal); Z95.0 Presence of cardiac pacemaker

== ENCOUNTER 2019-05-20 08:44 | Emergency (ER) | payer OTHER, MEDICARE ==
[~2019-05-20] VITALS: Ht 172.7 cm; Wt 84.1 kg
[~2019-05-20 08:44] MED LIST changes: -/ATOR40TA; -/WARF25TA PO; -/WARF5TA; -ASPI1TAB PO; +ASPI81TA26 PO; +COUM1TAB17; +COUM1TAB18 PO; +LIPI1TAB2; +METO-743; -TOPR50TA
[2019-05-20] MEDS ORDERED: DERMABOND TOPICAL SKIN ADHESIVE TOP ONE (10:15)
[2019-05-20 10:25] LABS: BASO # 0.1 10^3/uL (0.0-0.2); BASO % 0.3 % (0.0-1.0); EOS # 0.1 10^3/uL (0.0-0.5); EOS % 0.3 % (0.0-3.0); HEMATOCRIT 44.1 % (42.0-52.0); HEMOGLOBIN 15.3 g/dl (13.5-17.5); LYMPH # 0.7 10^3/uL (1.5-5.0); LYMPH % 4.3 % (24.0-44.0); MEAN CORPUSCULAR HEMOGLOBIN 33.1 pg (27.0-33.0); MEAN CORPUSCULAR HGB CONC 34.7 g/dl (32.0-36.5); MEAN CORPUSCULAR VOLUME 95.5 fl (80.0-96.0); MONO # 0.9 10^3/uL (0.0-0.8); MONO % 5.4 % (0.0-5.0); NEUTROPHILS # 14.4 10^3/uL (1.5-8.5); NEUTROPHILS % 88.8 % (36.0-66.0); PLATELET COUNT, AUTOMATED 140 10^3/uL (150-450); RED BLOOD COUNT 4.62 10^6/uL (4.30-6.10); WHITE BLOOD COUNT 16.2 10^3/uL (4.0-10.0)
[2019-05-20] MEDS ORDERED: ADACEL/BOOSTRIX VACCINE (DIPHTH/PERTUSS/ACELL/TETANUS)0.5ML SYR (90715) IM ONE (10:30)
[2019-05-20 10:51] LABS: ALBUMIN 3.8 GM/DL (3.2-5.2); ALT/SGPT 38 U/L (12-78); BILIRUBIN,DIRECT 0.3 MG/DL (0.0-0.2); BILIRUBIN,TOTAL 1.1 MG/DL (0.2-1.0); BLOOD UREA NITROGEN 23 MG/DL (7-18); CALCIUM LEVEL 8.7 MG/DL (8.8-10.2); CARBON DIOXIDE LEVEL 21 MEQ/L (21-32); CHLORIDE LEVEL 106 MEQ/L (98-107); CK-MB VALUE MASS 11.2 NG/ML (<3.6); CPK CREATINE PHOSPHOKINASE 340 U/L (39-308); CREATININE FOR GFR 1.04 MG/DL (0.70-1.30); FREE T4 1.42 NG/DL (0.76-1.46); GLOMERULAR FILTRATION RATE > 60.0 (>42); GLUCOSE, FASTING 182 MG/DL (70-100); MB/CK RELATIVE INDEX 3.29 (< OR =4); SODIUM LEVEL 136 MEQ/L (136-145); TOTAL PROTEIN 6.7 GM/DL (6.4-8.2); TROPONIN I < 0.02 NG/ML (< 0.10)
[2019-05-20] MEDS ORDERED: ISOVUE-370 76% 100ML VIAL (Q9967) As Ordered ONE (10:56)
[2019-05-20 11:11] LABS: INR 2.53; PARTIAL THROMBOPLASTIN TIME 37.3 SECONDS (25.0-38.4); PROTHROMBIN TIME 27.1 SECONDS (11.8-14.0)
--- NOTE | 2019-05-20 11:20 | REP ---
Clinical: Trauma. Comparison: 08/06/2018 . Findings: Age-related atrophy and microvascular ischemic changes are appreciated. The ventricles and sulci are symmetric. Maxwell-white differentiation is maintained. There is no evidence for acute intracranial hemorrhage, mass/mass effect, pathology or infarction. No extra-axial fluid collection. Calvarium is intact. Paranasal sinuses and mastoid air cells are clear. Impression: Age related atrophy and microvascular ischemic changes. No acute intracranial hemorrhage, infarction, or mass/mass effect. Electronically Signed by Schuyler Dunham MD 05/20/2019 11:11 A
--- NOTE | 2019-05-20 11:22 | REP ---
Clinical: Trauma. Technique: Axial noncontrast images from the skull base to the thoracic inlet with coronal and sagittal re-formations. Comparison: Neck CT dated 07/05/2018. Findings: Alignment is maintained. Advanced multilevel degenerative disc osteophyte complexes remain stable. No acute fracture / compression injury or subluxation. Spinal canal is patent. Posterior elements and spinous processes are intact. Vertebral soft tissues within normal limits. Impression: Stable advanced multilevel degenerative spondylosis. No acute cervical spine pathology or trauma/injury appreciated. Electronically Signed by Schuyler Dunham MD 05/20/2019 11:13 A
--- NOTE | 2019-05-20 11:35 | REP ---
Clinical: Trauma. Technique: Axial contrast enhanced images from the thoracic inlet to the upper abdomen with coronal and sagittal re-formations using 100 ml Isovue 370 intravenous contrast material. Findings: Lung sweeney are relatively well aerated and demonstrate scattered chronic interstitial changes of long with few scattered calcified granulomata. No significant consolidation/contusion or atelectasis noted. No pleural effusion. No pneumothorax. Tracheobronchial tree is patent. No adenopathy. Mediastinum demonstrates atherosclerotic changes to the thoracic aorta and coronary arteries without aortic aneurysm or dissection. No cardiomegaly or pericardial effusion. Evidence for prior sternotomy and pacemaker identified. Old healed left 10th rib fracture is appreciated no acute osseous trauma identified. Impression: 1. Old healed left 10th rib fracture. 2. Chronic pleuroparenchymal changes and evidence for prior granulomatous disease. 3. No acute mediastinal or pleuroparenchymal process. Electronically Signed by Schuyler Dunham MD 05/20/2019 11:27 A
--- NOTE | 2019-05-20 11:38 | REP ---
Clinical: Trauma. Technique: Axial contrast enhanced images from the lung bases to the pubic symphysis using 100 ml Isovue 370 intravenous contrast material with coronal and sagittal re-formations. Findings: Lung bases demonstrate chronic-appearing changes and old healed left 10th rib fracture. No evidence for solid organ injury. Liver, spleen, pancreas, gallbladder, bilateral adrenal glands and kidneys are essentially normal. The enteric system is without obstruction or acute inflammatory process. Normal terminal ileum and appendix identified in the right lower quadrant. Colonic and sigmoid diverticulosis noted without acute diverticulitis. Pelvis demonstrates normal bladder and enlarged prostate gland measuring approximately 6.4 cm maximal transverse diameter mild mass effect on the base of the bladder. Small fat containing right inguinal hernia. No ascites. No free air. No adenopathy. Atherosclerotic changes of the aorta and vasculature noted without aneurysm or dissection. Surrounding musculoskeletal structures demonstrate degenerative changes without focal abnormality Impression: 1. No evidence for solid organ injury. No ascites. No free air. 2. Diverticulosis without acute diverticulitis. 3. Enlarged prostate gland with mild mass effect on the base of the bladder. 4. Atherosclerotic changes to the vasculature and degenerative changes the musculoskeletal structures. Electronically Signed by Schuyler Dunham MD 05/20/2019 11:30 A
[2019-05-20 12:52] VITALS: BP 96/52
--- NOTE | 2019-05-21 16:48 | ECGEPIP ---
[facility] - ED Test Date: 2019-05-20 Pat Name: INDU CANDELARIA Department: Room: - Gender: Male Chest Pain Coordinator: ree : 1945 Requested By: BHAVESH Drew Order Number: [id number] Reading MD: Enriqueta Laboy Measurements Intervals [place] Rate: 65 P: 99 AR: 170 QRS: -77 QRSD: 124 T: 89 QT: 430 QTc: 448 Interpretive Statements ELECTRONIC VENTRICULAR PACEMAKER ABNORMAL RHYTHM ECG DECREASED RATE 08/13/18 Electronically Signed on 05-21-2019 16:47:54 EDT by Enriqueta Laboy
== END 2019-05-20 13:08 | disposition home or self-care (01) ==
LOC: M ED 08:44
DX: S51.812A Laceration without foreign body of left forearm, initial encounter (principal); S61.412A Laceration without foreign body of left hand, initial encounter; V49.49XA Driver injured in collision with other motor vehicles in traffic accident, initial encounter; Y92.410 Unspecified street and highway as the place of occurrence of the external cause; E11.9 Type 2 diabetes mellitus without complications; I10 Essential (primary) hypertension; I25.10 Atherosclerotic heart disease of native coronary artery without angina pectoris; Z79.01 Long term (current) use of anticoagulants
CPT/HCPCS: 12001; 70450; 71260; 72125; 74177; 80048; 80076; 82550; 82553; 84439; 84443; 84484; 85025; 85610; 85730; 90471; 90715; 93005; 93041; 94760; 99285; Q9967

== ENCOUNTER → 2019-06-17 | Outpatient (REF) | payer MEDICARE, OTHER ==
[2019-06-17 14:11] LABS: BASO % 0.5 % (0.0-1.0); EOS # 0.1 10^3/uL (0.0-0.5); EOS % 1.1 % (0.0-3.0); HEMATOCRIT 42.6 % (42.0-52.0); HEMOGLOBIN 14.1 g/dl (13.5-17.5); LYMPH # 0.8 10^3/uL (1.5-5.0); LYMPH % 9.1 % (24.0-44.0); MEAN CORPUSCULAR HGB CONC 33.1 g/dl (32.0-36.5); MEAN CORPUSCULAR VOLUME 96.6 fl (80.0-96.0); MONO # 0.7 10^3/uL (0.0-0.8); MONO % 8.5 % (0.0-5.0); NEUTROPHILS # 6.9 10^3/uL (1.5-8.5); NEUTROPHILS % 80.4 % (36.0-66.0); PLATELET COUNT, AUTOMATED 160 10^3/uL (150-450); RED BLOOD COUNT 4.41 10^6/uL (4.30-6.10); WHITE BLOOD COUNT 8.6 10^3/uL (4.0-10.0)
[2019-06-17 14:18] LABS: ALBUMIN 3.6 GM/DL (3.2-5.2); ALT/SGPT 21 U/L (12-78); BLOOD UREA NITROGEN 19 MG/DL (7-18); CALCIUM LEVEL 8.8 MG/DL (8.8-10.2); CARBON DIOXIDE LEVEL 26 MEQ/L (21-32); CHLORIDE LEVEL 101 MEQ/L (98-107); CREATININE FOR GFR 1.15 MG/DL (0.70-1.30); GLOMERULAR FILTRATION RATE > 60.0 (>42); GLUCOSE, FASTING 265 MG/DL (70-100); POTASSIUM SERUM 4.1 MEQ/L (3.5-5.1); SODIUM LEVEL 135 MEQ/L (136-145); TOTAL PROTEIN 6.9 GM/DL (6.4-8.2)
== END ==
LOC: M LABNEURO 09:15
PROVIDERS: ATTEND Psychiatry & Neurology Neurology
DX: R56.9 Unspecified convulsions (principal)

== ENCOUNTER 2019-07-30 11:33 | Inpatient (IN) | payer MEDICARE ==
[~2019-07-30] VITALS: Ht 172.7 cm; Wt 82.4 kg
[2019-07-30 12:07] LABS: BASO % 0.1 % (0.0-1.0); HEMATOCRIT 38.5 % (42.0-52.0); HEMOGLOBIN 12.8 g/dl (13.5-17.5); LYMPH % 1.7 % (24.0-44.0); MEAN CORPUSCULAR HEMOGLOBIN 30.5 pg (27.0-33.0); MEAN CORPUSCULAR HGB CONC 33.2 g/dl (32.0-36.5); MEAN CORPUSCULAR VOLUME 91.9 fl (80.0-96.0); MONO # 0.8 10^3/uL (0.0-0.8); MONO % 5.6 % (0.0-5.0); NEUTROPHILS # 13.4 10^3/uL (1.5-8.5); RED BLOOD COUNT 4.19 10^6/uL (4.30-6.10); WHITE BLOOD COUNT 14.5 10^3/uL (4.0-10.0)
--- NOTE | 2019-07-30 12:20 | REP ---
CT brain: 07/30/2019. Indication: Stroke. Comparison: 05/20/2019. Technique: Unenhanced axial CT images of the brain were obtained from skull base to vertex. Findings: There is no acute intracranial hemorrhage, acute cortical infarction, mass effect or hydrocephalous. Chronic appearing right basal ganglia, left pontine and bilateral cerebellar lacunar infarctions are present. Diffuse volume loss is present. Patchy areas of hypoattenuation are scattered throughout the bilateral cerebral hemisphere white matter. Impression: There is no evidence of acute intracranial process. Chronic ischemic changes and volume loss. Electronically Signed by Juan Miguel Dowling DO 07/30/2019 12:11 P
[2019-07-30 12:21] LABS: LYMPH # 0.2 10^3/uL (1.5-5.0); PLATELET COUNT, AUTOMATED 98 10^3/uL (150-450)
[2019-07-30 12:23] LABS: INR 2.53; PARTIAL THROMBOPLASTIN TIME 43.8 SECONDS (25.0-38.4); PROTHROMBIN TIME 27.1 SECONDS (11.8-14.0)
--- NOTE | 2019-07-30 12:30 | REP ---
PORTABLE CHEST X-RAY: SINGLE AP VIEW. HISTORY: CVA. COMPARISON CHEST X-RAY: October 01, 2018 FINDINGS: The patient is status post median sternotomy and what appears to be aortic valve replacement. A bipolar pacemaker is seen in the right heart via the left side. Heart is borderline in size, unchanged. The pulmonary vasculature appears slightly cephalized. Pleural angles are sharp. There are granulomatous calcifications in the left lung base, as before. No infiltrate or edema is seen. IMPRESSION: Cephalization. Mildly prominent heart, status post valve replacement with pacemaker. No evidence of pleural effusion or pulmonary edema. Electronically Signed by Pablo Fishcer MD 07/30/2019 12:57 P
[2019-07-30 12:32] LABS: CALCIUM LEVEL 8.3 MG/DL (8.8-10.2); CK-MB VALUE MASS 1.2 NG/ML (<3.6); CREATININE FOR GFR 1.42 MG/DL (0.70-1.30); MB/CK RELATIVE INDEX 0.66 (< OR =4); POTASSIUM SERUM 4.1 MEQ/L (3.5-5.1); TROPONIN I 0.06 NG/ML (< 0.10)
[2019-07-30] MEDS ORDERED: ACETAMINOPHEN TAB 650MG DOSE (2X325MG) PO ONE (12:45)
[2019-07-30] MEDS ORDERED: NS 1,000 ML IV SCH (12:48)
[2019-07-30 13:16] LABS: ALBUMIN 3.4 GM/DL (3.2-5.2); BILIRUBIN,DIRECT 0.6 MG/DL (0.0-0.2); BILIRUBIN,TOTAL 1.9 MG/DL (0.2-1.0); TOTAL PROTEIN 6.8 GM/DL (6.4-8.2)
[2019-07-30] MEDS ORDERED: METO25TA4 PO (13:23)
[2019-07-30] MEDS ORDERED: KEPP1TAB PO (13:23)
[2019-07-30] MEDS ORDERED: METF500T13 PO (13:23)
[2019-07-30] MEDS ORDERED: WARF-18 PO (13:23)
[2019-07-30] MEDS ORDERED: NS 500 ML IV ONE ×2 (14:15→14:45)
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
[2019-07-30 18:45] VITALS: BP 125/65
[2019-07-30] MEDS ORDERED: GLUCAGON FOR INJ 1 MG VIAL (J1610) SC PRN (18:45)
[2019-07-30] MEDS ORDERED: GLUCOSE 4 GM CHEW TABLET PO PRN (18:45)
[2019-07-30] MEDS ORDERED: DEXTROSE 50% 50 ML SYRINGE IV PRN (18:45)
[2019-07-30] MEDS: NS 1,000 ML IV SCH (19:55)
[2019-07-30] MEDS: METOPROLOL TART 12.5 MG PER 1/2 TAB PO SCH (19:56)
[2019-07-30] MEDS: WARFARIN SOD 5 MG TAB PO SCH (19:56)
[2019-07-30] MEDS: levETIRAcetam 250MG TABLET (KEPPRA) PO SCH (19:56)
[2019-07-30] MEDS: SIMVASTATIN 40 MG TAB PO SCH (19:57)
[2019-07-30] MEDS: HEPARIN SOD (PORCINE) 5000 UNITS/ML VIAL SC SCH (19:57)
[2019-07-30 20:15] VITALS: BP 107/51
[2019-07-30] MEDS: HumaLOG INSULIN (NovoLOG) PER UNIT SC SCH (21:00)
[2019-07-31] MEDS ORDERED: ACETAMINOPHEN TAB 650MG DOSE (2X325MG) PO PRN
[2019-07-31 06:33] VITALS: BP 107/56
[2019-07-31] MEDS: NS 1,000 ML IV SCH (06:46)
[2019-07-31 06:52] LABS: HEMOGLOBIN 10.8 g/dl (13.5-17.5); MEAN CORPUSCULAR HEMOGLOBIN 30.9 pg (27.0-33.0); MEAN CORPUSCULAR HGB CONC 33.8 g/dl (32.0-36.5); MEAN CORPUSCULAR VOLUME 91.4 fl (80.0-96.0); PLATELET COUNT, AUTOMATED 89 10^3/uL (150-450); WHITE BLOOD COUNT 12.5 10^3/uL (4.0-10.0)
--- NOTE | 2019-07-31 07:23 | ECGEPIP ---
[facility] - ED Test Date: 2019-07-30 Pat Name: INDU CANDELARIA Department: Room: - Gender: Male Manager Balance: TC : 1945 Requested By: DARREL Apodaca Order Number: [id number] Reading MD: Garrick Parson Measurements Intervals [place] Rate: 86 P: NC: 0 QRS: -75 QRSD: 157 T: 92 QT: 435 QTc: 521 Interpretive Statements ELECTRONIC VENTRICULAR PACEMAKER SIMILAR TO 05/20/19 Electronically Signed on 07-31-2019 7:23:27 EST by Garrick Parson
[2019-07-31 07:26] LABS: ALBUMIN 2.7 GM/DL (3.2-5.2); ALT/SGPT 28 U/L (12-78); BILIRUBIN,TOTAL 1.4 MG/DL (0.2-1.0); BLOOD UREA NITROGEN 28 MG/DL (7-18); CALCIUM LEVEL 7.9 MG/DL (8.8-10.2); CARBON DIOXIDE LEVEL 23 MEQ/L (21-32); CHLORIDE LEVEL 106 MEQ/L (98-107); CREATININE FOR GFR 1.13 MG/DL (0.70-1.30); GLOMERULAR FILTRATION RATE > 60.0 (>42); GLUCOSE, FASTING 192 MG/DL (70-100); MAGNESIUM LEVEL 1.8 MG/DL (1.8-2.4); POTASSIUM SERUM 3.6 MEQ/L (3.5-5.1); SODIUM LEVEL 136 MEQ/L (136-145)
[2019-07-31] MEDS ORDERED: VANCOMYCIN HCL 1,000 MG, VIAL MATE ADAPTER 1 EACH in D5W 250 ML IV STA (07:32)
[2019-07-31] MEDS ORDERED: GENTAMICIN 80 MG in IV 1 EA IV STA (07:32)
[2019-07-31] MEDS: LISINOPRIL 20 MG TAB PO SCH (08:20)
[2019-07-31] MEDS: HumaLOG INSULIN (NovoLOG) PER UNIT SC SCH ×4 (08:20→21:00)
[2019-07-31] MEDS: levETIRAcetam 250MG TABLET (KEPPRA) PO SCH ×2 (08:20→22:01)
[2019-07-31] MEDS: ASPIRIN 81 MG ENTERIC TAB PO SCH (08:21)
[2019-07-31] MEDS: METOPROLOL TART 12.5 MG PER 1/2 TAB PO SCH ×2 (08:21→22:01)
[2019-07-31 08:42] LABS: INR 2.98; PROTHROMBIN TIME 30.9 SECONDS (11.8-14.0)
[2019-07-31] MEDS: HEPARIN SOD (PORCINE) 5000 UNITS/ML VIAL SC SCH (09:00)
[2019-07-31] MEDS: GENTAMICIN IV SCH ×2 (10:17→22:02)
[2019-07-31] MEDS: D5W IV SCH ×2 (10:17→22:02)
[2019-07-31 10:47] VITALS: BP 127/71
--- NOTE | 2019-07-31 10:47 | PHACANCOPD ---
PHARMACY VANCOMYCIN DOSING Pt Demographics Demographics Patient Age:73 , Weight:82.400 , Gender: male Adjusted Body Weight Date: 07/31/19, Adjusted Body Weight: Kg Events Past 24 Hours Events Past 24 Hours: NO: Dialysis, Diuretic Therapy, Change in CrCl, Fever, Elevation in WBC, Pending Diagnostics, Pending Procedures, Other Vancomycin Vancomycin Target Ranges: 15-20 mcg/ml Vancomycin Load Y/N: Yes Load Dose Date Time Vancomycin Load Dose: 1500MG Date: 07/31/19 Time: 1100 Vancomycin Dose Date: 07/31/19. Current Vancomycin Dose: Intermittent Dosing?: No Labs Labs Vital Signs Label Value Date Time Patient Temperature 97.8 degrees F 07/31/19 0633 Temperature Source Temporal 07/31/19632 Patient Temperature 97.2 degrees F 07/30/192014 Temperature Source Oral 07/30/192014 Patient Temperature 96.9 degrees F 07/30/19 184 Temperature Source Temporal 07/30/191844 Patient Temperature 98.0 degrees F 07/30/191821 Temperature Source Temporal 07/30/19 182 Item Value Date Time White Blood Count 12.5 10^3/uL H 07/31/19 0621 White Blood Count 14.5 10^3/uL H 07/30/19 1150 Creatinine 1.13 MG/DL 07/31/19 0621 Creatinine 1.42 MG/DL H 07/30/19 1150 Micro Microbiology 07/30/19 Respiratory Virus Panel (PCR) ([facility]) - Final, Complete 07/30/19 Blood Culture - Preliminary, Resulted 07/30/19 Blood Culture, Received Pending Creatinine Clearance Date:07/31/19. Creatinine Clearance: . Assessment and Plan Maintaining Current Dose?: Yes Reason for dose change: No Dose Change Pharmacist Note Pharmacist Note Date: 07/31/19. Pharmacist note: Pt cultures preliminary for gram(+) possible endocarditis. Pt was started on Vanco and synergy with Gentamicin. I have loaded the patient with 1500mg IV x1 at 1100, followed by Vanco 1G IV Q12H@2300. The patient is on Gentamcin 70mg q12h. Will continue to check cultures for de- escalation. Will continue to monitor and adjust dose as needed. KAVYA [facility] Jul 31, 2019 10:47
[2019-07-31] MEDS ORDERED: VANCOMYCIN HCL 500 MG in D5W MINI-BAG PLUS 100 ML IV ONE (11:00)
--- NOTE | 2019-07-31 13:56 | ECGEPIP ---
[facility] Test Date: 2019-07-31 Pat Name: INDU CANDELARIA Department: Room: [place] [address] Gender: Male Invas Tech: : 1945 Requested By: NAVID Rivera Order Number: [id number] Reading MD: Jen Vega Measurements Intervals [place] Rate: 110 P: SD: 0 QRS: -76 QRSD: 152 T: 102 QT: 369 QTc: 501 Interpretive Statements ELECTRONIC VENTRICULAR PACEMAKER ABNORMAL RHYTHM ECG SIMILAR TO 07/30/19 EXCEPT FASTER RATE Electronically Signed on 07-31-2019 13:55:56 EST by Jen Vega
[2019-07-31] MEDS ORDERED: FUROSEMIDE 40 MG/4 ML VIAL (J1940) IV ONE (14:00)
--- NOTE | 2019-07-31 14:11 | REP ---
Chest x-ray: Two views. History: Shortness of breath. Comparison chest x-ray: July 30, 2019. Findings: Monitoring electrodes are seen. The patient is status post median sternotomy and aortic valve replacement. Heart size is borderline unchanged. There are granulomatous calcifications in the left and right lung base. Pulmonary vasculature is slightly cephalized. There is no evidence of pleural effusion. There are a few Vinicio B lines in the bases. Pacemaker leads are seen. Impression: Mildly prominent heart status post aortic valve replacement with pacemaker. Vinicio B lines in the bases bilaterally. Pulmonary vascular cephalization. Electronically Signed by Pablo Fischer MD 07/31/2019 02:21 P
[2019-07-31] MEDS ORDERED: WARFARIN SOD 2.5 MG TAB PO SCH (17:00)
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
[2019-07-31 22:00] VITALS: BP 112/61
[2019-07-31] MEDS: SIMVASTATIN 40 MG TAB PO SCH (22:01)
[2019-07-31] MEDS: VANCOMYCIN HCL 1,000 MG, VIAL MATE ADAPTER 1 EACH in D5W 250 ML IV SCH (23:19)
[2019-08-01 06:00] VITALS: BP 122/62
[2019-08-01 06:27] LABS: HEMATOCRIT 32.7 % (42.0-52.0); HEMOGLOBIN 10.9 g/dl (13.5-17.5); MEAN CORPUSCULAR HEMOGLOBIN 30.6 pg (27.0-33.0); MEAN CORPUSCULAR HGB CONC 33.3 g/dl (32.0-36.5); MEAN CORPUSCULAR VOLUME 91.9 fl (80.0-96.0); RED BLOOD COUNT 3.56 10^6/uL (4.30-6.10); WHITE BLOOD COUNT 8.2 10^3/uL (4.0-10.0)
[2019-08-01 06:28] LABS: PLATELET COUNT, AUTOMATED 92 10^3/uL (150-450)
[2019-08-01 06:33] LABS: INR 3.41; PROTHROMBIN TIME 34.4 SECONDS (11.8-14.0)
--- NOTE | 2019-08-01 06:45 | CR ---
DATE OF CONSULTATION: 07/31/2019 REFERRING PHYSICIAN:: Chirag Fry MD REASON FOR CONSULTATION: Confusion. HISTORY OF PRESENT ILLNESS: Jamarcus Olvera is a 73-year-old man with a history of coronary artery disease, mechanical heart disease status post mechanical mitral valve replacement, diabetes who has been taking Keppra for his possible episodes of seizures which involved altered mental status and slurred speech for a few minutes. Last year there was concern for transient ischemic attacks and his INR was subtherapeutic in couple of these events, but these events also happened when his INR was within therapeutic limits for his mechanical mitral valve. His Keppra dose was increased within the last couple of months. He was doing well until Sunday night when he started having moments of fogginess and decreased clarity. His fog lasted a longer period of time and he had trouble communicating. He felt shivers and tremor at that time along with imbalance. He has hearing issues. He had similar symptoms yesterday and came to the emergency department. His symptoms improved by the time he came to emergency department. He had mild fever and his white count was 14.5. His blood cultures since then have shown gram-positive cocci in pairs. He denies any headaches. He had dry cough and slight breathing issues off and on for the last few days. He denies any neck pain, back pain, dysphagia, dysarthria, diplopia, urinary incontinence. His son who was present in the room stated that there were no clear episodes of start and stop of neurological symptoms to give a clear idea about seizures. DIAGNOSTIC STUDIES: His lactic acid was 3.5 and decreased to 2.4. WBC count has decreased from 14.5 to 12.5. Metabolic profile was normal. His INR was 2.98. PAST MEDICAL HISTORY: Coronary artery disease. Diabetes. Possible complex partial seizures. Mechanical heart valve placement. Pacemaker placement. SOCIAL HISTORY: He quit smoking 15 years ago. He smoked 1.5 packs per day for 40 years. He denies alcohol or illicit drugs. FAMILY HISTORY: Mother history of brain tumor. REVIEW OF SYSTEMS: All systems were reviewed and found to be noncontributory except as mentioned in the history of present illness. HOME MEDICATIONS: - aspirin 81 mg p.o. daily - glipizide 5 mg p.o. daily - Keppra 1000 mg p.o. b.i.d. - lisinopril 20 mg p.o. daily - metformin 500 mg p.o. daily - metoprolol 12.5 mg p.o. b.i.d. - simvastatin 40 mg p.o. daily - Coumadin 5 mg alternating with 2.5 mg daily ALLERGIES: No known drug allergies. PHYSICAL EXAMINATION: Temperature 98.4, pulse 78, respiratory rate 22, blood pressure 127/71, 96% saturation on room air. Heart: Regular rate and rhythm. Lungs: Clear to auscultation. Abdomen: Soft, nontender, nondistended. No pedal edema. No musculoskeletal abnormalities. No rash. No signs of meningeal irritation. The patient is awake, alert and oriented to place, person and time. Normal speech comprehension and repetition. Extraocular muscles are intact. No facial weakness. Tongue and uvula are midline. 5/5 strength in all four extremities. Deep tendon flexes are 2+ throughout. Normal sensation throughout. Gait is normal. ASSESSMENT: 1. Alteration of mentation with feeling foggy and decreased clarity with tremor and shivers. 2. Gram-positive cocci bacteremia with the elevated lactic acid and WBCs. 3. History of TIA and complex partial seizures. PLAN: 1. Await results of his EEG. 2. Continue Keppra 1000 mg p.o. b.i.d. I would not change the dose or add any other medicines unless there is a clear history of seizures. His shivers and slight alteration of mentation can be related to his current bacteremia for which he has been started on vancomycin and gentamicin intravenously. 3. Echocardiogram to rule out endocarditis. 4. Follow with our office in 2-3 weeks after hospital discharge.
[2019-08-01 06:46] LABS: ALBUMIN 2.6 GM/DL (3.2-5.2); ALT/SGPT 26 U/L (12-78); BILIRUBIN,TOTAL 1.4 MG/DL (0.2-1.0); BLOOD UREA NITROGEN 21 MG/DL (7-18); CALCIUM LEVEL 8.2 MG/DL (8.8-10.2); CARBON DIOXIDE LEVEL 28 MEQ/L (21-32); CHLORIDE LEVEL 104 MEQ/L (98-107); CREATININE FOR GFR 0.94 MG/DL (0.70-1.30); GLOMERULAR FILTRATION RATE > 60.0 (>42); GLUCOSE, FASTING 161 MG/DL (70-100); MAGNESIUM LEVEL 1.9 MG/DL (1.8-2.4); PHOSPHORUS LEVEL 1.6 MG/DL (2.5-4.9); POTASSIUM SERUM 3.8 MEQ/L (3.5-5.1); SODIUM LEVEL 136 MEQ/L (136-145); TOTAL PROTEIN 5.9 GM/DL (6.4-8.2)
--- NOTE | 2019-08-01 06:48 | EEG ---
DATE OF EE07/31/2019 REFERRING PHYSICIAN: Chirag Fry MD DIAGNOSIS: Seizures. EEG NUMBER: [id number] HISTORY: The patient is a 73-year-old man who was admitted at [facility] due to slight alteration of mentation feeling foggy and decreased clarity with shivers. He was found to have bacteremia. He is currently taking Keppra, Coumadin, etc. TECHNICAL DESCRIPTION: This digital EEG was recorded by 21 scalp, ear and two EKG electrodes and was reviewed in bipolar and referential montages following reformatting in 10-20 international electrode placement system. INTERPRETATION: The patient was noted to be in awake and drowsy states during this EEG. Resting awake background rhythm consisted of well-formed posterior dominant rhythm with anterior/posterior gradient comprising of 8.5 Hz alpha activity measuring 15-40 microvolts in amplitude, which was symmetric and reactive to eye opening. Attenuation of posterior dominant rhythm was seen during transition into drowsiness. Stage 1 sleep was reviewed and was symmetric bilaterally. Intermittent bilateral temporal theta and delta slowing to 3-4 Hz activity was noted. No clear epileptiform abnormalities were seen. Hyperventilation could not be performed. Photic stimulation remained unremarkable. EKG revealed normal sinus rhythm. No relevant clinical activity was noted. CONCLUSION: This EEG in awake, drowsy states, stage 1 sleep is mildly abnormal due to presence of mild bilateral intermittent temporal slowing consistent with mild nonspecific cerebral dysfunction such as seen in encephalopathy due to multiple potential causes including infectious, toxic, metabolic, medication related or structural brain abnormalities. No clear epileptiform abnormalities were seen. Clinical correlation is recommended.
--- NOTE | 2019-08-01 08:29 | ECHO ---
DATE OF PROCEDURE: 07/31/2019 REFERRING PHYSICIAN: Dr. Chirag Fry INDICATION: Bacteremia. Height 173 cm. Weight 82 kg. DIMENSIONS: IV 1.0 LV 4.1 LVPW 1.2 LA 4.2 Aorta 3.6 IVC 3.0 Mitral E wave velocity 153 A-wave 63 E prime septal 10.6 E prime lateral 6.6 FINDINGS: The study is of rather difficult technical quality. The patient is in sinus rhythm with ventricularly paced rhythm. Left ventricle is normal size and overall probably normal contractility, I estimate ejection fraction around 60%. There is septal wall motion abnormality likely related to underlying pacemaker driven rhythm. Right ventricle appears to be at least mildly enlarged. Both atria are enlarged. There is an echo artifact in right-sided heart chambers consistent with pacemaker electrode. Aortic valve is mechanical. It was poorly visualized but on some images there appears to be echodensity attached to its aortic side measuring approximately 1 cm but this could easily represent an artifact. Mitral valve also exhibits degenerative abnormalities with mitral annular calcifications and mild prolapse of anterior mitral leaflet. Tricuspid and pulmonic valves were poorly visualized but grossly appear normal. No pericardial effusion is noted. Inferior vena cava is dilated and there is no appreciable collapse with respiration indicative of high central venous pressure. Aortic root is normal. Aortic arch and abdominal aorta were poorly seen. Doppler interrogation of aortic valve reveals no insufficiency or just trivial probably physiologic insufficiency and gradient is peak 15 and mean 8 mmHg, which are normal values. There is approximately [id number]-[id number] mitral insufficiency with posteriorly oriented jet corresponding to mitral valve prolapse, approximately moderate tricuspid insufficiency seen. Calculated pulmonary artery pressure is in minimum in high 50s, which corresponds to moderately severe pulmonary hypertension. Mitral inflow pattern and tissue Doppler imaging of mitral annulus reveal likely grade 2 diastolic dysfunction. CONCLUSIONS: 1. Study is of fair technical quality. 2. Normal LV size with grossly preserved left ventricular systolic function and likely grade 2 diastolic dysfunction. 3. Dilated atria. 4. Mechanical prosthesis in aortic position that was poorly visualized. Certainly cannot rule out presence of vegetation. Functionally, the valve is normal. 5. Mitral valve prolapse resulting in approximately [id number] mitral insufficiency. 6. Very high central venous pressure. 7. At least moderately severe pulmonary hypertension. COMMENTS: SBE prophylaxis is recommended. If there is a question about bacterial endocarditis, then at some point the patient should undergo transesophageal echocardiogram.
[2019-08-01] MEDS: ASPIRIN 81 MG ENTERIC TAB PO SCH (09:21)
[2019-08-01] MEDS: levETIRAcetam 250MG TABLET (KEPPRA) PO SCH ×2 (09:21→22:06)
[2019-08-01] MEDS: METOPROLOL TART 12.5 MG PER 1/2 TAB PO SCH ×2 (09:21→22:06)
[2019-08-01] MEDS: LISINOPRIL 20 MG TAB PO SCH (09:21)
[2019-08-01] MEDS: HumaLOG INSULIN (NovoLOG) PER UNIT SC SCH ×4 (09:22→22:05)
[2019-08-01] MEDS: D5W IV SCH ×2 (09:44→22:05)
[2019-08-01] MEDS: GENTAMICIN IV SCH ×2 (09:44→22:05)
[2019-08-01 09:45] LABS: GENTAMICIN LEVEL TROUGH 0.5 MCG/ML (0.0-2.0); VANCOMYCIN RANDOM 6.6 UG/ML
[2019-08-01] MEDS: VANCOMYCIN HCL 1,000 MG, VIAL MATE ADAPTER 1 EACH in D5W 250 ML IV SCH ×2 (11:09→23:12)
[2019-08-01] MEDS: K-PHOS NEUTRAL 250MG TABLET (SOD.PHOSPHATE/POT.PHOSPHATE) PO SCH ×3 (11:09→22:06)
[2019-08-01 14:00] VITALS: BP 105/60
[2019-08-01] MEDS ORDERED: VANCOMYCIN HCL 1,000 MG, VIAL MATE ADAPTER 1 EACH in D5W 250 ML IV ONE (16:00)
[2019-08-01] MEDS: WARFARIN SOD 5 MG TAB PO SCH (17:10)
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
[2019-08-01 22:00] VITALS: BP 123/61
[2019-08-01] MEDS: SIMVASTATIN 40 MG TAB PO SCH (22:06)
[2019-08-02 06:00] VITALS: BP 137/72
[2019-08-02 07:06] LABS: INR 4.17; PROTHROMBIN TIME 40.4 SECONDS (11.8-14.0)
[2019-08-02 07:20] LABS: VANCOMYCIN RANDOM 15.2 UG/ML
[2019-08-02] MEDS: K-PHOS NEUTRAL 250MG TABLET (SOD.PHOSPHATE/POT.PHOSPHATE) PO SCH ×3 (08:59→21:45)
[2019-08-02] MEDS: METOPROLOL TART 12.5 MG PER 1/2 TAB PO SCH ×2 (08:59→21:45)
[2019-08-02] MEDS: levETIRAcetam 250MG TABLET (KEPPRA) PO SCH ×2 (08:59→21:44)
[2019-08-02] MEDS: ASPIRIN 81 MG ENTERIC TAB PO SCH (08:59)
[2019-08-02] MEDS: LISINOPRIL 20 MG TAB PO SCH (09:00)
[2019-08-02] MEDS ORDERED: FLUBLOK(EGG FREE)(QUAD)INFLUENZA VACC 0.5ML SYRINGE (90682)18YRS&OLDER IM ONE (09:00)
[2019-08-02] MEDS: HumaLOG INSULIN (NovoLOG) PER UNIT SC SCH ×4 (09:00→21:00)
[2019-08-02] MEDS: VANCOMYCIN HCL 1,000 MG, VIAL MATE ADAPTER 1 EACH in D5W 250 ML IV SCH (09:10)
[2019-08-02 09:40] LABS: HEMATOCRIT 31.8 % (42.0-52.0); HEMOGLOBIN 10.5 g/dl (13.5-17.5); MEAN CORPUSCULAR HEMOGLOBIN 30.2 pg (27.0-33.0); MEAN CORPUSCULAR VOLUME 91.4 fl (80.0-96.0); PLATELET COUNT, AUTOMATED 95 10^3/uL (150-450); RED BLOOD COUNT 3.48 10^6/uL (4.30-6.10); WHITE BLOOD COUNT 7.2 10^3/uL (4.0-10.0)
[2019-08-02 09:45] LABS: BLOOD UREA NITROGEN 18 MG/DL (7-18); CALCIUM LEVEL 8.2 MG/DL (8.8-10.2); CARBON DIOXIDE LEVEL 27 MEQ/L (21-32); CHLORIDE LEVEL 102 MEQ/L (98-107); CREATININE FOR GFR 0.89 MG/DL (0.70-1.30); GLOMERULAR FILTRATION RATE > 60.0 (>42); GLUCOSE, FASTING 202 MG/DL (70-100); POTASSIUM SERUM 3.2 MEQ/L (3.5-5.1); SODIUM LEVEL 136 MEQ/L (136-145)
[2019-08-02] MEDS ORDERED: GENTAMICIN 80 MG in IV 1 EA IV SCH (10:00)
[2019-08-02] MEDS: LEVEMIR (INSULIN DETEMIR) 1 UNITS/0.01ML SC SCH (10:22)
[2019-08-02] MEDS: POTASSIUM CHLORIDE 10 MEQ SR TABLET PO SCH ×2 (13:04→17:40)
[2019-08-02] MEDS: cefTRIAXone SOD 1 GM in D5W MINI-BAG PLUS 50 ML IV SCH (13:04)
[2019-08-02 14:00] VITALS: BP 134/63
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
[2019-08-02] MEDS: SIMVASTATIN 40 MG TAB PO SCH (21:44)
[2019-08-02 22:00] VITALS: BP 134/68
[2019-08-03 06:00] VITALS: BP 131/89
[2019-08-03 06:43] LABS: HEMATOCRIT 31.4 % (42.0-52.0); HEMOGLOBIN 10.3 g/dl (13.5-17.5); MEAN CORPUSCULAR HEMOGLOBIN 30.3 pg (27.0-33.0); MEAN CORPUSCULAR HGB CONC 32.8 g/dl (32.0-36.5); MEAN CORPUSCULAR VOLUME 92.4 fl (80.0-96.0); PLATELET COUNT, AUTOMATED 105 10^3/uL (150-450)
[2019-08-03 06:48] LABS: INR 4.23; PROTHROMBIN TIME 40.9 SECONDS (11.8-14.0)
[2019-08-03 07:03] LABS: BLOOD UREA NITROGEN 14 MG/DL (7-18); CALCIUM LEVEL 8.2 MG/DL (8.8-10.2); CARBON DIOXIDE LEVEL 29 MEQ/L (21-32); CHLORIDE LEVEL 103 MEQ/L (98-107); CREATININE FOR GFR 0.88 MG/DL (0.70-1.30); GLOMERULAR FILTRATION RATE > 60.0 (>42); GLUCOSE, FASTING 178 MG/DL (70-100); MAGNESIUM LEVEL 1.9 MG/DL (1.8-2.4); PHOSPHORUS LEVEL 3.1 MG/DL (2.5-4.9); POTASSIUM SERUM 3.8 MEQ/L (3.5-5.1); SODIUM LEVEL 138 MEQ/L (136-145)
[2019-08-03 07:45] LABS: C REACTIVE PROTEIN QUANTITATIV 5.69 MG/DL (0.00-0.30)
[2019-08-03 08:21] LABS: ERYTHROCYTE SEDIMENTATION RATE 32 mm/hr (0-20)
[2019-08-03] MEDS: K-PHOS NEUTRAL 250MG TABLET (SOD.PHOSPHATE/POT.PHOSPHATE) PO SCH ×3 (08:33→20:17)
[2019-08-03] MEDS: ASPIRIN 81 MG ENTERIC TAB PO SCH (08:33)
[2019-08-03] MEDS: LISINOPRIL 20 MG TAB PO SCH (08:34)
[2019-08-03] MEDS: METOPROLOL TART 12.5 MG PER 1/2 TAB PO SCH ×2 (08:34→20:18)
[2019-08-03] MEDS: levETIRAcetam 250MG TABLET (KEPPRA) PO SCH ×2 (08:34→20:17)
[2019-08-03] MEDS: LEVEMIR (INSULIN DETEMIR) 1 UNITS/0.01ML SC SCH (08:35)
[2019-08-03] MEDS: HumaLOG INSULIN (NovoLOG) PER UNIT SC SCH ×4 (08:35→21:00)
[2019-08-03] MEDS: cefTRIAXone SOD 1 GM in D5W MINI-BAG PLUS 50 ML IV SCH (12:10)
[2019-08-03 14:00] VITALS: BP_SYST 115; BP_SYST 155; BP_DIAS 52; BP_DIAS 76
--- NOTE | 2019-08-03 14:09 | IPNPDOC ---
Text Note Date of Service The patient was seen on 08/03/19. NOTE Subjective: Patient seen and examined at bedside. Family at bedside. No acute overnight events reported. No new medical complaints this morning. Denies chest pain, shortness of breath, abdominal pain, N/V/D. Objective: VITAL SIGNS: Please see below. GENERAL: No distress HEENT: Normocephalic, atraumatic, moist mucous membranes NECK: Supple CARDIOVASCULAR EXAMINATION: Irregular, S1, S2, mechanical click appreciated RESPIRATORY EXAMINATION: CTA B/L ABDOMINAL EXAMINATION: Soft, nontender, nondistended, positive bowel sounds SKIN: No rash ASSESSMENT: 73-year-old male with past medical history of seizure disorder, coronary artery disease, diabetes mellitus and mechanical mitral valve, presents with persistent seizure activity despite medical treatment. PLAN: 1. Bacteremia Blood cultures positive for strep mitis in 1 out of 2 sets, antibiotics downgraded to ceftriaxone based on susceptibility, repeat cultures negative so far, TTE negative for vegetation, elevated inflammatory markers, presented with fever; d/w cardiology, assistance appreciated, plan for ESTEPHANIA tomorrow 2. Seizure disorder. Questionable absence seizures despite treatment, Keppra dose decreased to 750 mg twice a day, EEG without seizure activity, neurology eval appreciated. 3. Coronary artery disease continue optimal medical management. (Aspirin, statin, beta alexis) 4. Mechanical mitral valve replacement. . Supratherapeutic INR, Coumadin discontinued, will restart when INR in thera peutic range. 5. DVT prophylaxis - supratherapeutic INR - was on coumadin Dispo: pending ESTEPHANIA for further eval endocarditis, continue Abx for bacteremia, repeat cultures pending, considering ID c/s VS,Fishbone, I+O VS, Fishbone, I+O Laboratory Tests 08/03/19 05:39 Vital Signs Date Time Temp Pulse Resp B/P (MAP) Pulse Ox O2 Delivery O2 Flow Rate FiO2 08/03/19 08:34 83 131/89 08/03/19 06:00 97.8 20 96 08/02/19 14:00 Room Air I&O- Last 24 Hours up to 6 AM 08/03/19 06:00 Intake Total 2400 ml Output Total 300 ml Balance 2100 ml DONELL KOHLI MD Aug 03, 2019 14:08
[2019-08-03 18:30] VITALS: BP 157/78
[2019-08-03] MEDS: SIMVASTATIN 40 MG TAB PO SCH (20:18)
[2019-08-03 22:00] VITALS: BP 133/64
[2019-08-04 06:00] VITALS: BP 120/58
[2019-08-04 06:23] LABS: INR 2.75
[2019-08-04] MEDS: HumaLOG INSULIN (NovoLOG) PER UNIT SC SCH ×4 (07:30→21:00)
[2019-08-04] MEDS: LEVEMIR (INSULIN DETEMIR) 1 UNITS/0.01ML SC SCH (09:00)
[2019-08-04] MEDS: levETIRAcetam 250MG TABLET (KEPPRA) PO SCH ×2 (10:00→21:06)
[2019-08-04] MEDS: K-PHOS NEUTRAL 250MG TABLET (SOD.PHOSPHATE/POT.PHOSPHATE) PO SCH ×3 (10:00→21:06)
[2019-08-04] MEDS: ASPIRIN 81 MG ENTERIC TAB PO SCH (10:00)
[2019-08-04] MEDS: LISINOPRIL 20 MG TAB PO SCH (10:03)
[2019-08-04] MEDS: METOPROLOL TART 12.5 MG PER 1/2 TAB PO SCH ×2 (10:06→21:08)
[2019-08-04] MEDS: cefTRIAXone SOD 1 GM in D5W MINI-BAG PLUS 50 ML IV SCH (13:26)
--- NOTE | 2019-08-04 13:30 | IPNPDOC ---
Text Note Date of Service The patient was seen on 08/04/19. NOTE Subjective: Patient seen and examined at bedside. No acute overnight events reported. No new medical complaints this morning. Denies chest pain, shortness of breath, abdominal pain, N/V/D. Objective: VITAL SIGNS: Please see below. GENERAL: No distress HEENT: Normocephalic, atraumatic, moist mucous membranes NECK: Supple CARDIOVASCULAR EXAMINATION: Irregular, S1, S2, mechanical click appreciated RESPIRATORY EXAMINATION: CTA B/L ABDOMINAL EXAMINATION: Soft, nontender, nondistended, positive bowel sounds SKIN: No rash ASSESSMENT: 73-year-old male with past medical history of seizure disorder, coronary artery disease, diabetes mellitus and mechanical mitral valve, presents with persistent seizure activity despite medical treatment. PLAN: 1. Bacteremia Blood cultures positive for strep mitis in 1 out of 2 sets - antibiotics de-escalated to ceftriaxone based on susceptibility - repeat cultures negative to date - TTE negative for vegetations - elevated inflammatory markers, presented with fever - d/w cardiology, as sistance appreciated - plan for ESTEPHANIA today 2. Seizure disorder. Questionable absence seizures despite treatment, Keppra dose decreased to 750 mg twice a day, EEG without seizure activity, neurology eval appreciated. 3. Coronary artery disease continue optimal medical management. (Aspirin, statin, beta alexis) 4. Mechanical mitral valve replacement. INR therapeutic today - restart warfarin - target INR 2.5 - 3.5 5. DVT prophylaxis - therapeutic INR - on coumadin Dispo: pending ESTEPHANIA for further eval endocarditis, continue Abx for bacteremia, repeat cultures pending, considering ID c/s VS,Fishbone, I+O VS, Fishbone, I+O Vital Signs Date Time Temp Pulse Resp B/P (MAP) Pulse Ox O2 Delivery O2 Flow Rate FiO2 08/04/19 10:06 78 134/61 08/04/19 06:00 97.0 20 97 08/03/19 18:30 Room Air I&O- Last 24 Hours up to 6 AM 08/04/19 06:00 Intake Total 1560 ml Output Total 700 ml Balance 860 ml DONELL KOHLI MD Aug 04, 2019 13:30
[2019-08-04 14:00] VITALS: BP 128/64
[2019-08-04] MEDS ORDERED: CETACAINE SPRAY 5GM As Ordered ONE (16:51)
[2019-08-04] MEDS ORDERED: LIDOCAINE VISCOUS 2% SOLN 15ML UDC As Ordered ONE (16:51)
[2019-08-04] MEDS ORDERED: WARFARIN SOD 5 MG TAB PO ONE (17:00)
[2019-08-04] MEDS ORDERED: PROPOFOL 200 MG/20 ML VIAL As Ordered ONE ×2 (17:10→17:22)
--- NOTE | 2019-08-04 17:39 | IPN ---
DATE: 08/04/2019 I was asked by Dr. Castro to perform transesophageal echocardiogram on the patient due to suspicion for bacterial endocarditis. I met with the patient yesterday and explained the rationale for the procedure, its indication, potential findings and complications. He did sign appropriate consent. I again met with the patient today, examined him before the procedure, and went over the procedure in detail. He is ready and all of his questions were answered. We will be starting momentarily.
[2019-08-04 18:00] VITALS: BP 166/78
[2019-08-04] MEDS ORDERED: HYDROMORPHONE HCL 0.5 MG/ 0.5 ML SYRINGE (J1170 PER 1) IV PRN (18:15)
[2019-08-04] MEDS ORDERED: PERCOCET 5MG/325MG TAB PO PRN (18:15)
[2019-08-04] MEDS ORDERED: ONDANSETRON 4MG/2ML VIAL (J2405) IV PRN (18:15)
[2019-08-04] MEDS ORDERED: LR 1,000 ML IV SCH (18:15)
[2019-08-04] MEDS ORDERED: fentaNYL 100 MCG/2 ML INJECTION (J3010) IV PRN (18:15)
[2019-08-04] MEDS: SIMVASTATIN 40 MG TAB PO SCH (21:06)
[2019-08-04 22:00] VITALS: BP 159/72
[2019-08-04 22:10] VITALS: BP 129/58
[2019-08-05 06:00] VITALS: BP 131/64
[2019-08-05 06:36] LABS: HEMATOCRIT 29.8 % (42.0-52.0); MEAN CORPUSCULAR HEMOGLOBIN 30.4 pg (27.0-33.0); MEAN CORPUSCULAR HGB CONC 33.6 g/dl (32.0-36.5); MEAN CORPUSCULAR VOLUME 90.6 fl (80.0-96.0); PLATELET COUNT, AUTOMATED 143 10^3/uL (150-450); RED BLOOD COUNT 3.29 10^6/uL (4.30-6.10); WHITE BLOOD COUNT 7.8 10^3/uL (4.0-10.0)
[2019-08-05 06:47] LABS: INR 3.02; PROTHROMBIN TIME 31.2 SECONDS (11.8-14.0)
[2019-08-05 07:08] LABS: BLOOD UREA NITROGEN 15 MG/DL (7-18); CALCIUM LEVEL 8.3 MG/DL (8.8-10.2); CARBON DIOXIDE LEVEL 27 MEQ/L (21-32); CHLORIDE LEVEL 103 MEQ/L (98-107); CREATININE FOR GFR 0.91 MG/DL (0.70-1.30); GLOMERULAR FILTRATION RATE > 60.0 (>42); GLUCOSE, FASTING 216 MG/DL (70-100); POTASSIUM SERUM 3.7 MEQ/L (3.5-5.1); SODIUM LEVEL 136 MEQ/L (136-145)
[2019-08-05] MEDS: HumaLOG INSULIN (NovoLOG) PER UNIT SC SCH ×2 (08:10→12:34)
[2019-08-05] MEDS: LEVEMIR (INSULIN DETEMIR) 1 UNITS/0.01ML SC SCH (08:10)
[2019-08-05 08:11] VITALS: BP 138/63
[2019-08-05] MEDS: LISINOPRIL 20 MG TAB PO SCH (08:11)
[2019-08-05] MEDS: METOPROLOL TART 12.5 MG PER 1/2 TAB PO SCH (08:11)
[2019-08-05] MEDS: levETIRAcetam 250MG TABLET (KEPPRA) PO SCH (08:11)
[2019-08-05] MEDS: K-PHOS NEUTRAL 250MG TABLET (SOD.PHOSPHATE/POT.PHOSPHATE) PO SCH (08:11)
[2019-08-05] MEDS: ASPIRIN 81 MG ENTERIC TAB PO SCH (08:11)
--- NOTE | 2019-08-05 09:13 | IPN ---
DATE: 08/05/2019 I came to see Mr. Olvera because I performed transesophageal echocardiogram yesterday. He tolerated the procedure well. Today, he said that he had a feeling of dryness in his throat for a few hours, but this morning he feels back to normal. There were no obvious negative consequences of the procedure. As far as the findings are concerned, I did not see any evidence for vegetation. The mechanical aortic prosthesis is intact. There are degenerative abnormalities of the mitral valve with thickening of the chordal apparatus, but no vegetations as such were seen. Even though this does not completely rule out presence of endocarditis, it makes it rather unlikely.
--- NOTE | 2019-08-05 10:27 | RO ---
DATE OF PROCEDURE: 08/04/2019 REFERRING PHYSICIAN: Dr. Castro INDICATION: Bacteremia, history of aortic valve replacement and suspicious bacterial endocarditis. ANESTHESIA: Ryder , INSTRUCTOR FLYING BRIEF HISTORY: Mr. Olvera is a 70-year-old man who has a history of aortic valve replacement with mechanical prosthesis and pacemaker placement who presented to [facility] with a two day history of night sweats. Blood culture was positive for oral Streptococcus and consequently suspicion was raised for bacterial endocarditis. Transthoracic echocardiogram was inconclusive and consequently transesophageal echocardiogram was requested. I met with the patient the day before and again the day the day of the procedure, explained the rationale and potential findings. He signed appropriate consent. PROCEDURE NOTE: Procedure was performed in operating room. The patient presented in fasting condition. After appropriate time-out was taken and all appropriate monitors were applied his posterior pharynx was anesthetized using Cetacaine spray and viscous lidocaine. He was then positioned in left lateral decubital position. Face mask was applied. Probe was then introduced into esophagus and later stomach with minor difficulty. After images were obtained the probe was withdrawn. There were no immediate apparent complication and the patient tolerated the procedure well. FINDINGS: Both right and left ventricle appeared to have normal systolic function. I do not appreciate any distinct wall motion abnormalities. There is mechanical prosthesis and aortic position. I do not visualize any vegetations. Based on color Doppler imaging there is no significant insufficiency and no paravalvular insufficiency seen. Mitral valve exhibits mild prolapse of anterior mitral leaflet. There is thickening and calcifications in chordal apparatus but no distinct vegetations are seen by color Doppler imaging there is approximately mild or worse case scenario mild to moderate mitral insufficiency. Left atrial appendage is free of thrombi and is relatively large. There is normal flow in both left and right-sided pulmonary veins. Atrial septum is intact based on 2-D imaging and color Doppler imaging. There are echo artifacts consistent with pacemaker electrodes in right-sided heart chambers. I do not visualize any vegetation on either electrodes. Tricuspid valve appears normal. There is approximately mild or mild or moderate insufficiency. Calculated pulmonary artery pressure is within normal limits based on fair quality TR jet. It is likely that it underestimate actually pulmonary artery pressure. Pulmonic valve was relatively poorly visualized. No pericardial effusion is noted. There is very prominent atherosclerosis of the aortic arch and especially descending thoracic aorta. There are prominent atherosclerotic lesions protruding into the lumen but no apparent ulcerations. CONCLUSIONS: 1. Preserved LV systolic function. 2. Anterior mitral leaflet prolapse resulting mild to moderate mitral insufficiency. 3. Aortic mechanical prosthesis. 4. Mild tricuspid insufficiency. 5. Intact atrial septum. 6. No evidence for vegetations on pacemaker electrodes. COMMENT: SBE prophylaxis is recommended. Study does not provide any substrate for diagnosis of bacterial endocarditis.
[2019-08-05] MEDS: cefTRIAXone SOD 1 GM in D5W MINI-BAG PLUS 50 ML IV SCH (12:33)
[2019-08-05 14:00] VITALS: BP 152/70
[2019-08-05] MEDS ORDERED: LEVA1TAB2 PO (14:11)
[2019-08-05] MEDS ORDERED: WARFARIN SOD 2.5 MG TAB PO ONE (17:00)
--- NOTE | 2019-08-05 20:19 | DS.PDOC ---
Discharge Summary General Date of Admission Jul 30, 2019 at 16:21 Date of Discharge 08/05/2019 Attending Physician: NAVID CHANG MD Discharge Summary PROCEDURES PERFORMED DURING STAY: None. ADMITTING DIAGNOSES: 1. , Seizure, bacteremia. DISCHARGE DIAGNOSES: 1. , Seizure, bacteremia. COMPLICATIONS/CHIEF COMPLAINT: Cad, Diabetes Mellitus, H/O Mitral Valve Replace. HISTORY OF PRESENT ILLNESS: 73-year-old male with past medical history of coronary artery disease, diabetes mellitus, mitral valve replacement and seizure disorder, was admitted for vague symptoms concerning for seizure. He was evaluated by neurology, EEG was negative for seizure activity, recommended outpatient follow-up. He was subsequently found to be bacteremic and 1 out of 2 sets, repeat cultures negative, initial cultures grew strep mitis. ESTEPHANIA was negative for vegetation. Patient treated with ceftriaxone, blood cultures were likely contamination, but due to patient's high risk from mechanical valve will complete antibiotic course, discharged on Levaquin. HOSPITAL COURSE: As above. DISCHARGE MEDICATIONS: Please see below. ALLERGIES: Please see below. PHYSICAL EXAMINATION: VITAL SIGNS: Please see below. GENERAL: No distress HEENT: Normocephalic, atraumatic, moist mucous membranes NECK: Supple CARDIOVASCULAR EXAMINATION: S1, S2, mechanical click appreciated RESPIRATORY EXAMINATION: Clear to auscultation, no wheezing ABDOMINAL EXAMINATION: Soft, nontender, nondistended, positive bowel sounds EXTREMITIES: Range of motion intact SKIN: No rash NEUROLOGICAL EXAMINATION: Alert and oriented 3, no focal deficits PSYCHIATRIC EXAMINATION: Calm and cooperative LABORATORY DATA: Please see below. IMAGING: ESTEPHANIA negative for rotation PROGNOSIS: Fair ACTIVITY: As tolerated. DIET: Cardiac DISCHARGE PLAN: Patient will follow with neurologist PCP in 1-2 weeks DISPOSITION: 01 Home, Self-Care. DISCHARGE INSTRUCTIONS: 1. As above. DISCHARGE CONDITION: Stable. TIME SPENT ON DISCHARGE: Greater than 34 minutes. Vital Signs/I&Os Vital Signs Date Time Temp Pulse Resp B/P (MAP) Pulse Ox O2 Delivery O2 Flow Rate FiO2 08/05/19 14:00 97.2 75 18 152/70 (97) 99 Room Air I&O- Last 24 Hours up to 6 AM 08/05/19 06:00 Intake Total 1050 ml Balance 1050 ml Laboratory Data Labs 24H Laboratory Tests 2 08/04/19 20:41: Bedside Glucose (Misc Panel) 225H 08/05/19 06:23: Nucleated Red Blood Cells % (auto) 0.0, Prothrombin Time 31.2H, Prothromb Time International Ratio 3.02, Anion Gap 6L, Glomerular Filtration Rate > 60.0, Calc ium Level 8.3L 08/05/19 11:41: Bedside Glucose (Misc Panel) 280H CBC/BMP Laboratory Tests 08/05/19 06:23 FSBS Laboratory Tests Test 08/04/19 20:41 08/05/19 11:41 Range/Units Bedside Glucose (Misc Panel) 225 280 83-110 MG/DL Microbiology Microbiology 08/03/19 Blood Culture - Preliminary, Resulted No Growth after 48 hours. All Specime... 08/03/19 Blood Culture - Preliminary, Resulted No Growth after 48 hours. All Specime... 08/01/19 Blood Culture - Preliminary, Resulted No Growth after 72 hours. All specime... 07/30/19 Respiratory Virus Panel (PCR) ([facility]) - Final, Complete 07/30/19 Blood Culture - Final, Complete Streptococcus Mitis 07/30/19 Blood Culture - Final, Complete NO GROWTH AFTER 5 DAYS Discharge Medications Scheduled Aspirin (Aspirin EC) 81 Mg Tab, 81 MG PO DAILY, (Reported) Glipizide (Glipizide ER) 5 Mg Tab, 5 MG PO DAILY, (Reported) Levetiracetam (Keppra) 500 Mg Tablet, 1,000 MG PO BID, (Reported) Levofloxacin (Levaquin) 500 Mg Tablet, 500 MG PO DAILY Lisinopril (Lisinopril) 20 Mg Tab, 20 MG PO DAILY, (Reported) Metformin HCl (Metformin HCl) 500 Mg Tablet, 500 MG PO QHS, (Reported) Metoprolol Tartrate (Metoprolol Tartrate) 25 Mg Tablet, 12.5 MG PO BID, (Rep orted) Simvastatin (Simvastatin) 40 Mg Tab, 40 MG PO QPM, (Reported) Warfarin Sodium (Warfarin Sodium) 5 Mg Tab, 5 MG PO 4XWK, (Reported) SUN/MON/WED/FRI Warfarin Sodium (Warfarin Sodium) 2.5 Mg Tablet, 2.5 MG PO 3XW, (Reported) E//SAT Allergies Coded Allergies: No Known Allergies (Verified , 07/30/19) NAVID CHANG MD Aug 05, 2019 20:19
== END 2019-08-05 16:00 | disposition home or self-care (01) | DRG 101 ==
LOC: M ED 11:33 → M ED INP 16:21 → M MS5PR 18:25 → M MSPAV 07-31 10:28
PROVIDERS: ADMIT Internal Medicine; ATTEND Internal Medicine
PROC: B246ZZ4 Ultrasonography of Right and Left Heart, Transesophageal (ICD-10-PCS; principal; 2019-08-04 17:00)
DX: G40.909 Epilepsy, unspecified, not intractable, without status epilepticus (principal); N17.9 Acute kidney failure, unspecified; R78.81 Bacteremia; E11.9 Type 2 diabetes mellitus without complications; I25.10 Atherosclerotic heart disease of native coronary artery without angina pectoris; Z95.2 Presence of prosthetic heart valve; Z95.0 Presence of cardiac pacemaker; Z87.891 Personal history of nicotine dependence; Z79.82 Long term (current) use of aspirin; Z79.01 Long term (current) use of anticoagulants; Z79.84 Long term (current) use of oral hypoglycemic drugs; Z79.899 Other long term (current) drug therapy

== ENCOUNTER → 2020-08-28 | Outpatient (CLI) | payer MEDICARE ==
[~2020-08-28] MED LIST changes: -COUM1TAB14 PO; +COUM4TAB8 PO; -COUM7.5T PO; +COUM7.5T6 PO; +FERR325T18 PO; +FURO40TA2 PO; +LEVA1TAB2 PO; +LEVE750T5 PO; +METF500T13 PO; +METO25TA4 PO; -SIMV40TA2 PO; +SIMV40TA20 PO; +WARF-18 PO
== END ==
LOC: M LABSMTC 08:59
PROVIDERS: ATTEND Anesthesiology
DX: Z01.818 Encounter for other preprocedural examination (principal); Z20.828 Contact with and (suspected) exposure to other viral communicable diseases

== ENCOUNTER 2020-09-02 08:53 | Day surgery (SDC) | payer MEDICARE ==
[~2020-09-02] VITALS: Ht 170.2 cm; Wt 78.9 kg
[~2020-09-02 08:53] MED LIST changes: +NS 1,000 ML IV ONE
--- NOTE | 2020-09-02 10:29 | ROOR ---
Patient Name: Jamarcus Olvera Procedure Date: 09/02/2020 10:13 AM Date of : 1945 Age: 74 Room: [facility] Gender: Male Note Status: Finalized Procedure: Upper GI endoscopy Indications: Iron deficiency anemia Providers: Rafael Muller Jr, MD Referring MD: CESAR GARZA Requesting Provider: Medicines: Propofol per Anesthesia Complications: No immediate complications. Procedure: Pre-Anesthesia Assessment: - Prior to the procedure, a History and Physical was performed, and patient medications and allergies were reviewed. The patient is competent. The risks and benefits of the procedure and the sedation options and risks were discussed with the patient. All questions were answered and informed consent was obtained. Patient identification and proposed procedure were verified by the physician and the nurse in the pre-procedure area and in the procedure room. Mental Status Examination: alert and oriented. Airway Examination: normal oropharyngeal airway and neck mobility. Respiratory Examination: clear to auscultation. CV Examination: normal. ASA Grade Assessment: II - A patient with mild systemic disease. After reviewing the risks and benefits, the patient was deemed in satisfactory condition to undergo the procedure. The anesthesia plan was to use moderate sedation / analgesia (conscious sedation). Immediately prior to administration of medications, the patient was re-assessed for adequacy to receive sedatives. The heart rate, respiratory rate, oxygen saturations, blood pressure, adequacy of pulmonary ventilation, and response to care were monitored throughout the procedure. The physical status of the patient was re-assessed after the procedure. The Endoscope was introduced through the mouth, and advanced to the second part of duodenum. The upper GI endoscopy was accomplished without difficulty. The patient tolerated the procedure well. Findings: The upper third of the esophagus, middle third of the esophagus and lower third of the esophagus were normal. The cardia, gastric fundus, gastric body, gastric antrum, prepyloric region of the stomach and pylorus were normal. The duodenal bulb, first portion of the duodenum and second portion of the duodenum were normal. Impression: - Normal upper third of esophagus, middle third of esophagus and lower third of esophagus. - Normal cardia, gastric fundus, gastric body, antrum, prepyloric region of the stomach and pylorus. - Normal duodenal bulb, first portion of the duodenum and second portion of the duodenum. - No specimens collected. Recommendation: - Discharge patient to home (ambulatory). - Return to primary care physician (date not yet determined). Procedure Code(s): --- Professional --- 63019, Esophagogastroduodenoscopy, flexible, transoral; diagnostic, including collection of specimen(s) by brushing or washing, when performed (separate procedure) Diagnosis Code(s): --- Professional --- D50.9, Iron deficiency anemia, unspecified CPT copyright 2019 [employer]. All rights reserved. The codes documented in this report are preliminary and upon sql report analyst review may be revised to meet current compliance requirements. Rafael Muller MD Rafael Muller Jr, MD 09/02/2020 10:29:02 AM Electronically signed by Rafael Muller Jr, MD Number of Addenda: 0 Note Initiated On: 09/02/2020 10:13 AM Estimated Blood Loss: Estimated blood loss: none.
[2020-09-02] MEDS ORDERED: propofoL 500 MG/50 ML VIAL As Ordered ONE (10:30)
[2020-09-02] MEDS ORDERED: LIDOCAINE 2% 100MG/5ML SDV (FOR ANES.) As Ordered ONE (10:30)
[2020-09-02] MEDS ORDERED: PHENYLephrine HCL 500 MCG/5 ML (100MCG/ML) SYRINGE (J2370) As Ordered ONE (10:35)
[2020-09-02] MEDS ORDERED: ePHEDrine SULFATE 25 MG/5 ML(5MG/ML) SYRINGE As Ordered ONE (10:35)
--- NOTE | 2020-09-02 10:55 | ROOR ---
Patient Name: Jamarcus Olvera Procedure Date: 09/02/2020 10:14 AM Date of : 1945 Age: 74 Room: [facility] Gender: Male Note Status: Finalized Procedure: Colonoscopy Indications: Iron deficiency anemia Providers: Rafael Muller Jr, MD Referring MD: CESAR GARZA Requesting Provider: Medicines: Propofol per Anesthesia Complications: No immediate complications. Procedure: Pre-Anesthesia Assessment: - Prior to the procedure, a History and Physical was performed, and patient medications and allergies were reviewed. The patient is competent. The risks and benefits of the procedure and the sedation options and risks were discussed with the patient. All questions were answered and informed consent was obtained. Patient identification and proposed procedure were verified by the physician and the nurse in the pre-procedure area and in the procedure room. Mental Status Examination: alert and oriented. Airway Examination: normal oropharyngeal airway and neck mobility. Respiratory Examination: clear to auscultation. CV Examination: normal. ASA Grade Assessment: II - A patient with mild systemic disease. After reviewing the risks and benefits, the patient was deemed in satisfactory condition to undergo the procedure. The anesthesia plan was to use moderate sedation / analgesia (conscious sedation). Immediately prior to administration of medications, the patient was re-assessed for adequacy to receive sedatives. The heart rate, respiratory rate, oxygen saturations, blood pressure, adequacy of pulmonary ventilation, and response to care were monitored throughout the procedure. The physical status of the patient was re-assessed after the procedure. The Colonoscope was introduced through the anus and advanced to the cecum, identified by appendiceal orifice and ileocecal valve. The colonoscopy was performed without difficulty. The patient tolerated the procedure well. The quality of the bowel preparation was adequate. Findings: The rectum, recto-sigmoid colon, descending colon, transverse colon, cecum, appendiceal orifice, ileocecal valve and ileum appeared normal. A few small and large-mouthed diverticula were found in the sigmoid colon. A medium polyp was found in the ascending colon. The polyp was sessile. Polypectomy was attempted, initially using a jumbo cold forceps. Polyp resection was incomplete with this device. This intervention then required a different device and polypectomy technique. The polyp was removed with a piecemeal technique using a hot snare. Polyp resection was incomplete. The resected tissue was retrieved. Area was tattooed with an injection of 1 mL of Spot (carbon black). Impression: - The rectum, recto-sigmoid colon, descending colon, transverse colon, cecum, appendiceal orifice, ileocecal valve and terminal ileum are normal. - Diverticulosis in the sigmoid colon. - One medium polyp in the ascending colon, removed piecemeal using a hot snare. Incomplete resection. Resected tissue retrieved. Tattooed. Recommendation: - Discharge patient to home (ambulatory). - Repeat colonoscopy date to be determined after pending pathology results are reviewed for retreatment. - Return to my office in 1 week. Procedure Code(s): --- Professional --- 76444, Colonoscopy, flexible; with removal of tumor(s), polyp(s), or other lesion(s) by snare technique 31250, Colonoscopy, flexible; with directed submucosal injection(s), any substance Diagnosis Code(s): --- Professional --- K63.5, Polyp of colon D50.9, Iron deficiency anemia, unspecified K57.30, Diverticulosis of large intestine without perforation or abscess without bleeding CPT copyright 2019 [employer]. All rights reserved. The codes documented in this report are preliminary and upon health psychologist review may be revised to meet current compliance requirements. Rafael Muller MD Rafael Muller Jr, MD 09/02/2020 10:54:51 AM Electronically signed by Rafael Muller Jr, MD Number of Addenda: 0 Note Initiated On: 09/02/2020 10:14 AM Estimated Blood Loss: Estimated blood loss: none.
[2020-09-02 11:24] VITALS: BP 109/55
== END 2020-09-02 11:24 | disposition home or self-care (01) ==
LOC: M OPP 08:53
PROVIDERS: ATTEND Surgery
DX: D50.9 Iron deficiency anemia, unspecified (principal); R63.4 Abnormal weight loss; K63.5 Polyp of colon; K57.30 Diverticulosis of large intestine without perforation or abscess without bleeding
CPT/HCPCS: 43235; 45381; 45385; 88305; J2370

== ENCOUNTER → 2020-10-09 | Outpatient (CLI) | payer MEDICARE ==
[~2020-10-09] MED LIST changes: -LISI-538 PO; +LISI20TA33 PO; -NS 1,000 ML IV ONE
== END ==
LOC: M LABSMTC 10:21
PROVIDERS: ATTEND Anesthesiology
DX: Z01.812 Encounter for preprocedural laboratory examination (principal); Z20.822 Contact with and (suspected) exposure to COVID-19

== ENCOUNTER 2020-10-14 06:41 | Day surgery (SDC) | payer MEDICARE ==
[~2020-10-14] VITALS: Ht 172.7 cm; Wt 79.8 kg
[~2020-10-14 06:41] MED LIST changes: +ELEVIEW SUBMUCOSAL INJ 10ML AMP As Ordered ONE; +LISI-538 PO; -LISI20TA33 PO; +NS 1,000 ML IV ONE
--- OUTSIDE RECORDS SUMMARY | 2020-10-14 06:46 | CCD | Continuity of Care Document ---
Author Author Jamarcus OLSON RPA Organization Unknown Address [address] [facility] [address] [place] [address] Phone [phone] Problems Active Problems Provider Date Type 2 diabetes mellitus Chriss Olson RPA Onset: 07/31 Cardiac pacemaker in situ Chriss Olson, SHARON Onset: 07/18 Heart valve replacement Chriss Olson, RPA Onset: 2006 Hyperlipidemia Chriss Olson, RPA Onset: 05/03/2007 Heart murmur Chriss Olson, SHARON Onset: 01/16/2008 H/O: major vascular surgery Chriss Olson, RPA Onset: Thrombocytopenic disorder Chriss Olson, RPA Onset: 03/2011 Proteinuria Chriss Olson, RPA Onset: 11/18/2012 Coronary arteriosclerosis Chriss Olson, RPA Onset: 05/20 Essential hypertension Chriss Olson, RPA Onset: 015 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 ETOH Use Rarely consumes beer Tobacco Use Start: Unknown End: Unknown Patient is a former smoker Seat Belt/Car Seat always Allergies, Adverse Reactions, Alerts Description No Known Drug Allergies Medications Active Medications SIG Qnty Indications Ordering Provide r Date Metformin HCL 500mg Tablets take one tablet by mouth bid with meals (change 03/15/20) 180tabs Jace Brizuela D.O., [facility] 02/06/2019 Glipizide ER 5mg Tablets ER 24HR take one tablet by mouth every day 90tabs E11.9 Jace Brizuela D.O., [facility] 01/16/2019 Lancets 28G Misc use to test blood sugars one time daily dx: e11.9 100units E11.9 Jace Brizuela D.O., [facility] 11/23/2017 Blood Glucose Monitoring System W/Device Kit use once a day and as needed as directed 1units E11.9 Jace Brizuela D.O., [facility] 11/23/2017 Blood Glucose Test Strips use once a day and as needed (dx: e11.9) 100units E11.9 Jace Brizuela D.O., [facility] 11/23/2017 Lisinopril 20mg Tablets Take One Tablet By Mouth Every Day 90tabs Jaden العراقي M.D. 06/25/20 17 Asa 81mg take one tablet sadaf ly. Unknown Coumadin 5mg 1 po on M,W,F 1/2 tab on Sun, T, TH, Sat (target 2.5-3.5 Inr) [facility] Cardiology Simvastatin 40mg Tablets 1 by mouth every day Unknown Keppra 750mg Tablets 1 by mouth twice a day Unknown Metoprolol Succinate ER 25mg Tablets ER 24HR 1 by mouth bid Unknown Furosemide 40mg Tablets 1 by mouth every day Unknown Medications Administered in Office Medication SIG Qnty Indications Ordering Provider Date Injection (SC)/(Im) Injection Chriss Olson, SHARON 06/15/2020 Injection (SC)/(Im) Injection Chriss Olson, RPA 05/31/2009 Injection Subcutaneous Or Intramuscular Injection Chriss Olson, RPA 08/05 Immunizations CPT Code Status Date Vaccine Reaction Lot # [id number] Given 06/15/2020 Influenza Virus Vaccine, Quadrivalent, Slit Virus, Im Use 3Y & Up [id number] 36162 Given 06/25/2017 Influenza Virus Vaccine, Quadrivalent, Slit Virus, Im Use 3Y & Up [id number] 36542 Given 06/20/2016 Influenza Virus Vaccine, Quadrivalent, Slit Virus, Im Use 3Y & Up [id number] 00404 Given 06/16/2015 Influenza Vaccin e (Fluzone) 3Yrs Of Age Or Older Medicare Plans [id number] 88874 Given 06/10/2014 Pneumococcal Immunization [id number] 27525 Given 06/10/2014 Influenza Virus Vac. Split Virus Individuals 3 Years And Above [id number] 16405 Given 08/12/2012 Influenza Vaccin e (Fluzone) 3Yrs Of Age Or Older Medicare Plans 77125 Given 08/12/2012 Influenza Virus Vac. Split Virus Individuals 3 Years And Above [id number] 54223 Given 07/18/2011 Influenza Virus Vac. Split Virus Individuals 3 Years And Above 83426 Given 05/31/2009 Influenza Virus Vac. Split Virus Individuals 3 Years And Above [id number] 33208 Given 08/05/2007 Influenza Virus Vac. Split Virus Individuals 3 Years And Above [id number] Refused 07/16/2018 Influenza Virus Vaccine, Quadrivalent, Slit Virus, Im Use 3Y & Up Done 07/08/18 at [facility]. Vital Signs Date Vital Result Comment 09/16/2020 8:39am BP Systolic 116 mmHg BP Diastolic 70 mmHg Body Temperature 97.6 F Heart Rate 87 /min Respiratory Rate 16 /min Height 68 inches 5'8" Weight 178.00 lb [place] Body Weight 154 lb BMI (Body Mass Index) 27.1 kg/m2 O2 % BldC Oximetry 97 % 06/15/2020 9:18am BP Systolic 126 mmHg BP Diastolic 76 mmHg Body Temperature 97.6 F Heart Rate 53 /min Respiratory Rate 16 /min Height 68 inches 5'8" Weight 185.00 lb [place] Body Weight 154 lb BMI (Body Mass Index) 28.1 kg/m2 O2 % BldC Oximetry 98 % Results Test Acquired Date Facility Test Result H/L Range Note Lipid Panel 09/16/2020 [facility] [place] Cholesterol, Total 140 mg/dL 100-199 Triglycerides 80 mg/dL 0-149 HDL Cholesterol 50 mg/dL >39 VLDL Cholesterol [place] 16 mg/dL 5-40 LDL Chol Calc (Nih) 74 mg/dL 0-99 Comment: TNP Hemoglobin A1c 09/16/2020 [facility] [place] Hemoglobin A1c 5.5 % 4.8-5.6 1 Metabolic Panel (14), Comprehensive 06/15/2020 [facility] Glucose 133 mg/dL High 65-99 BUN 16 mg/dL 8-27 Creatinine 0.99 mg/dL 0.76-1.27 eGFR If NonAfricn Am 75 mL/min/1.73 >59 eGFR If Africn Am 86 mL/min/1.73 >59 BUN/Creatinine Ratio 16 10-24 Sodium 137 mmol/L 134-144 Potassium 4.0 mmol/L 3.5-5.2 Chloride 102 mmol/L 96-106 Carbon Dioxide, Total 24 mmol/L 20-29 Calcium 8.7 mg/dL 8.6-10.2 Protein, Total 6.6 g/dL 6.0-8.5 Albumin 4.0 g/dL 3.7-4.7 Globulin, Total 2.6 g/dL 1.5-4.5 A/G Ratio 1.5 1.2-2.2 Bilirubin, Total 0.9 mg/dL 0.0-1.2 Alkaline Phosphatase 108 IU/L 39-117 Ast (Sgot) 23 IU/L 0-40 Alt (SGPT) 16 IU/L 0-44 Laboratory test finding 06/15/2020 [facility] TSH 0.983 uIU/mL 0.450-4.500 Prostate-Specific Ag, Serum 3.0 ng/mL 0.0-4.0 2 Hemoglobin A1c 06/15/2020 [facility] Hemoglobin A1c 5.3 % 4.8-5.6 3 1 Prediabetes: 5.7 - 6.4 Diabetes: >6.4 Glycemic control for adults with diabetes: <7.0 2 Juan Daniel ECLIA methodology. According to the [place] [employer], Serum PSA should decrease and remain at undetectable levels after radical prostatectomy. The AUA defines biochemical recurrence as an initial PSA value 0.2 ng/mL or greater followed by a subsequent confirmatory PSA value 0.2 ng/mL or greater. Values obtained with different assay methods or kits cannot be used interchangeably. Results cannot be interpreted as absolute evidence of the presence or absence of malignant disease. 3 Prediabetes: 5.7 - 6.4 Diabetes: >6.4 Glycemic control for adults with diabetes: <7.0 Procedures Date Code Description Status 06/15/2020 82122 Injection (SC)/(Im) Completed Medical Devices Description No Information Available Encounters Type Date Location Provider Dx Diagnosis Office Visit 09/16/2020 8:45a [place] [facility] Chriss Olson, RP A E11.9 Type 2 diabetes mellitus without complications I10 Essential (primary) hyperten jennyfer E78.5 Hyperlipidemia, unspecified R80.9 Proteinuria, unspecified I63.30 Cerebral infarction due to t hombos unsp cerebral artery Z95.0 Presence of cardiac pacemake r Z95.2 Presence of prosthetic heart valve R01.1 Cardiac murmur, unspecified I25.10 Athscl heart disease of [place]til[place] ve coronary artery w/o ang pctrs G40.909 Epilepsy, unsp, not intracta ble, without status epilepticus D69.6 Thrombocytopenia, unspecifie d Z86.010 Personal history of colonic polyps Office Visit 06/15/2020 8:45a [place] [facility] Chriss Olson, RP A E11.9 Type 2 diabetes mellitus without complications I10 Essential (primary) hyperten jennyfer E78.5 Hyperlipidemia, unspecified R80.9 Proteinuria, unspecified I63.30 Cerebral infarction due to t hombos unsp cerebral artery Z95.0 Presence of cardiac pacemake r Z95.2 Presence of prosthetic heart valve R01.1 Cardiac murmur, unspecified I25.10 Athscl heart disease of [place]til[place] ve coronary artery w/o ang pctrs G40.909 Epilepsy, unsp, not intracta ble, without status epilepticus Z23 Encounter for immunization Assessments Date Code Description Provider 09/16/2020 E11.9 Type 2 diabetes mellitus without complications Chriss Olson, RPA 09/16/2020 I10 Essential (primary) hypertension Chriss Olson, RPA 09/16/2020 E78.5 Hyperlipidemia, unspecified Chriss Abarca, RPA 09/16/2020 R80.9 Proteinuria, unspecified Chriss Olson, RPA 09/16/2020 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 Chriss Olson, RPA 09/16/2020 Z95.0 Presence of cardiac pacemaker Chriss Stanley, RPA 09/16/2020 Z95.2 Presence of prosthetic heart marie ve Chriss Olson, RPA 09/16/2020 R01.1 Cardiac murmur, unspecified Chriss Abarca, RPA 09/16/2020 I25.10 Atherosclerotic heart disease of [place] coronary artery with Chriss Olson, RPA 09/16/2020 G40.909 Epilepsy, unspecified, not intra ctable, without status epile Chriss Olson, RPA 09/16/2020 D69.6 Thrombocytopenia, unspecified Hi Chriss nixon, RPA 09/16/2020 Z86.010 Personal history of colonic poly ps Chriss Olson, [facility] 06/15/2020 E11.9 Type 2 diabetes mellitus without complications Chriss Olson, [facility] 06/15/2020 I10 Essential (primary) hypertension Chriss Olson, [facility] 06/15/2020 E78.5 Hyperlipidemia, unspecified Chriss Abarca, RPA 06/15/2020 R80.9 Proteinuria, unspecified Chriss Olson, [facility] 06/15/2020 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 Chriss Olson, RPA 06/15/2020 Z95.0 Presence of cardiac pacemaker Chriss Stanley, [facility] 06/15/2020 Z95.2 Presence of prosthetic heart marie ve Chriss Olson, [facility] 06/15/2020 R01.1 Cardiac murmur, unspecified Chriss Abarca, [facility] 06/15/2020 I25.10 Atherosclerotic heart disease of [place] coronary artery with Chriss Olson, RPA 06/15/2020 G40.909 Epilepsy, unspecified, not intra ctable, without status epile Chriss Olson, [facility] 06/15/2020 Z23 Encounter for immunization Chriss Concepcion RPA Plan of Treatment Future Appointment(s):* 12/17/2020 8:45 am - Chriss Olson RPA at [place] [facility] Functional Status Description No Information Available Mental Status Description No Information Available Referrals Description No Information Available
--- OUTSIDE RECORDS SUMMARY | 2020-10-14 06:46 | CCD ---
Continuity of Care Document (CCD) Created on: 09/27/2020 Jamracus Olvera JR External Reference #: [id number] : 1945 Sex: Male Author Author Jamarcus CARBAJAL M.D. Organization Unknown Address [address] [facility], [address] [place] [address] Phone [phone] Care Team Providers Care Wildlife Technician Name Role Phone Alexa Shepard AUTM [phone] AUTM Unavailable Problems Active Problems Provider Date Essential hypertension Ezekiel Del Angel NP Onset: 07/27/2020 Social History Type Date Description Comments Sex Unknown ETOH Use Denies alcohol use Tobacco Use Start: Unknown End: Patient is a former smoker 2 PPD FOR 15 YRS Recreational Drug Use Denies Drug Use Allergies, Adverse Reactions, Alerts Description No Known Drug Allergies Medications Active Medications SIG Qnty Indications Ordering Provide r Date Warfarin Sodium 5mg Tablets 1tab po qd Unknown Lisinopril 20mg Tablets 1 Tab PO qd Unknown Glipizide 5mg Tablets 1 Tab P O qd Unknown Furosemide 40mg Tablets 1 Tab PO qd Unknown Metoprolol Tartrate 25mg Tablets 1 Tab PO qd Unknown Iron 325(65Fe) mg Tablets take 1 tablet by mouth daily. Unknown Levetiracetam 750mg Tablets 1 PO bid Unknown Metformin HCL 500mg Tablets 1 Tab PO qd Unknown Simvastatin 40mg Tablets 1tab po qd Unknown History Medications Suprep Bowel Prep Kit 17.5-3.13-1.6GM/177ML Solution take per doctor's bowel prep instructions. 354ml Ezekiel Del Angel NP 08/25/2020 - 09/07/2020 Immunizations Description No Information Available Vital Signs Date Vital Result Comment 09/27/2020 2:14pm BP Systolic 134 mmHg BP Diastolic 78 mmHg Height 68 inches 5'8" Weight 178.00 lb BMI (Body Mass Index) 27.1 kg/m2 [place] Body Weight 154 lb Weight 80.741 kg BSA (Body Surface Area) 1.94 m2 09/08/2020 10:13am BP Systolic 120 mmHg BP Diastolic 70 mmHg Height 67 inches 5'7" Weight 175.00 lb BMI (Body Mass Index) 27.4 kg/m2 [place] Body Weight 148 lb Weight 79.380 kg BSA (Body Surface Area) 1.91 m2 Results Test Acquired Date Facility Test Result H/L Range Note Laboratory test finding 09/02/2020 [facility] Main Lab [address] [place] [address] [phone] Pathology Request For Service (SEE NOTE) 1 1 FINAL DIAGNOSIS Ascending colon polyp, polypectomy: Tubular adenoma, fragments. 09/03/2020 - 1118 CLINICAL DIAGNOSIS Iron deficiency anemia and weight loss 09/02/2020 - 1517 GROSS DIAGNOSIS Received in formalin labeled "biopsy ascending colon polyp" and consists of a fragments of tissue, 0.2 x 0.1 x 0.1 cm. All in one. -OA 09/03/2020 - 1119 Signed ANDRE MELTON MD 09/03/2020 1119 Procedures Date Code Description Status 09/02/2020 93232 Colonoscopy W/ Poly Completed 09/02/2020 04867 Colonoscopy,W/Directed Submucosa l Injections, Any Substance Completed 09/02/2020 00375 Endoscopy Upper GI Complex Diagn ostic Completed Medical Devices Description No Information Available Encounters Type Date Location Provider Dx Diagnosis Office Visit 07/27/2020 3:45p [facility] Ezekiel Gramajo ett, ST[employer]ER D50.9 Iron deficiency anemia, unspecified R63.4 Abnormal weight loss Assessments Date Code Description Provider 09/08/2020 D12.2 Benign neoplasm of ascending col on Rafael Muller JR, MD 09/08/2020 D50.9 Iron deficiency anemia, unspecif ied Rafael Muller JR, MD 09/02/2020 D12.2 Benign neoplasm of ascending col on Rafael Muller JR, MD 09/02/2020 D50.9 Iron deficiency anemia, unspecif ied Rafael Muller JR, MD 09/02/2020 K57.30 Diverticulosis of la rge intestine without perforation or abscess without bleeding Rafael Muller JR, MD 07/27/2020 D50.9 Iron deficiency anemia, unspecif ied Ezekiel Del Angel NP 07/27/2020 R63.4 Abnormal weight loss Ezekiel kessler NP Plan of Treatment 09/27/2020 - Yemi Carbajal M.D.* * Recommendations:* cardiology clearance and bridge therapy with lovenix repeat cilonoscopy Functional Status Description No Information Available Mental Status Description No Information Available Referrals Refer to Reason for Referral Status Appt Date Rafael Muller JR, MD IRON DEFICIENCY ANEMIA Scheduled 1 09/26/2019 [address] [facility] [address] [place] [address] [phone] Chad Smith MD anemia Created 10/26/2020 [facility], Gastroenterology [address] [address] [facility], [address] [place] [address] [phone]
--- OUTSIDE RECORDS SUMMARY | 2020-10-14 06:47 | CCD | Continuity of Care Document ---
Author Author Jamarcus OLSON RPA Organization Unknown Address [address] [facility] [address] [place] [address] Phone [phone] Problems Active Problems Provider Date Type 2 diabetes mellitus Crhiss Olson RPA Onset: 07/31 Cardiac pacemaker in situ Chriss Olson RPA Onset: 07/18 Heart valve replacement Chriss Olson, RPA Onset: 2006 Hyperlipidemia Chriss Olson, RPA Onset: 05/03/2007 Heart murmur Chriss Olson, RPA Onset: 01/16/2008 H/O: major vascular surgery Chriss [...] 05/20/2019 History of polyp of colon Chriss Olson RPA Onset: 08/19 Social History Type Date Description Comments Sex Unknown Tobacco Use Start: Unknown End: Unknown Former Cigar ette Smoker 1 1/2 Packs Daily Tobacco Use Start: Unknown End: Unknown for 30 yrs quit 12/04 05. ETOH Use Rarely consumes beer Tobacco Use Start: Unknown End: Unknown Patient is a former smoker Seat Belt/Car Seat always Allergies, Adverse Reactions, Alerts Description No Known Drug Allergies Medications Active Medications SIG Qnty Indications Ordering Provide r Date Metformin HCL 500mg Tablets take one tablet by mouth bid with meals (change 03/15/20) 180tabs Jace Brizuela D.O., [facility] 02/06/2019 Glipizide ER 5mg Tablets ER 24HR take one tablet by mouth every day 90tabs E11.9 Jace Brizuela D.O., [facility] 01/16/2019 Lancets 28G Misc use to test blood sugars one time daily dx: e11.9 100units E11.9 Jace Brizuela D.O., [facility] 11/23/2017 Blood Glucose Monitoring System W/Device Kit use once a day and as needed as directed 1units E11.9 Jace Brizuela D.O., [facility] 11/23/2017 Blood Glucose Test Strips use once a day and as needed (dx: e11.9) 100units E11.9 Jace Brizuela D.O., [facility] 11/23/2017 Lisinopril 20mg Tablets Take One Tablet By Mouth Every Day 90tabs Jaden العراقي M.D. 06/25/20 17 Asa 81mg take one tablet sadaf ly. Unknown Coumadin 5mg 1 po on M,W,F 1/2 tab on Sun, T, TH, Sat (target 2.5-3.5 Inr) [facility] Cardiology Simvastatin 40mg Tablets 1 by [...] Code Status Date Vaccine Reaction Lot # 64156 Given 06/15/2020 Influenza Virus Vaccine, Quadrivalent, Slit Virus, Im Use 3Y & Up [id number] 78953 Given 06/25/2017 Influenza Virus Vaccine, Quadrivalent, Slit Virus, Im Use 3Y & Up [id number] 74051 Given 06/20/2016 Influenza Virus Vaccine, Quadrivalent, Slit Virus, Im Use 3Y & Up [id number] 82642 Given 06/16/2015 Influenza Vaccin e (Fluzone) 3Yrs Of Age Or Older Medicare Plans [id number] 17291 Given 06/10/2014 Pneumococcal Immunization [id number] 69263 Given 06/10/2014 Influenza Virus Vac. Split Virus Individuals 3 Years And Above [id number] 26981 Given 08/12/2012 Influenza Vaccin e (Fluzone) 3Yrs Of Age Or Older Medicare Plans 66105 Given 08/12/2012 Influenza Virus Vac. Split Virus Individuals 3 Years And Above [id number] 41362 Given 07/18/2011 Influenza Virus Vac. Split Virus Individuals 3 Years And Above 28864 Given 05/31/2009 Influenza Virus Vac. Split Virus Individuals 3 Years And Above [id number] 30901 Given 08/05/2007 Influenza Virus Vac. Split Virus Individuals 3 Years And Above [id number] Refused 07/16/2018 Influenza Virus Vaccine, Quadrivalent, Slit Virus, Im Use 3Y & Up Done 07/08/18 at [facility]. Vital Signs Date Vital Result Comment 09/16/2020 8:39am BP Systolic 116 mmHg BP Diastolic 70 mmHg Body Temperature 97.6 F Heart Rate 87 /min Respiratory Rate 16 /min Height 68 inches 5'8" Weight 178.00 lb [place] Body Weight 154 lb BMI (Body Mass Index) 27.1 kg/m2 O2 % BldC Oximetry 97 % 06/15/2020 9:18am BP Systolic 126 mmHg BP Diastolic 76 mmHg Body Temperature 97.6 F Heart Rate 53 /min Respiratory Rate 16 /min Height 68 inches 5'8" Weight 185.00 lb [place] Body Weight 154 lb BMI (Body Mass Index) 28.1 kg/m2 O2 % BldC Oximetry 98 % Results Test Acquired Date Facility Test Result H/L Range Note Metabolic Panel (14), Comprehensive 06/15/2020 [facility] [place] Glucose 133 mg/dL High 65-99 [...] 0.450-4.500 Prostate-Specific Ag, Serum 3.0 ng/mL 0.0-4.0 1 Hemoglobin A1c 06/15/2020 [facility] Hemoglobin A1c 5.3 % 4.8-5.6 2 1 Juan Daniel ECLIA methodology. According to the [place] [employer], Serum PSA should decrease and [...] the presence or absence of malignant disease. 2 Prediabetes: 5.7 - 6.4 Diabetes: >6.4 Glycemic control for adults with diabetes: <7.0 Procedures Date Code Description Status 06/15/2020 71586 Injection (SC)/(Im) Completed Medical Devices Description No Information Available Encounters Type Date Location Provider Dx Diagnosis Office Visit 09/16/2020 8:45a [place] [facility] Chriss Olson, RP A E11.9 Type [...] of colonic polyps Office Visit 06/15/2020 8:45a [place] [facility] Chriss Olson, RP A E11.9 Type 2 diabetes mellitus without complications I10 Essential (primary) hyperten jennyfer E78.5 Hyperlipidemia, unspecified R80.9 Proteinuria, unspecified I63.30 Cerebral infarction due to t hombos unsp cerebral artery Z95.0 Presence of cardiac pacemake r Z95.2 Presence of prosthetic heart valve R01.1 Cardiac murmur, unspecified I25.10 Athscl heart disease of [place] coronary artery w/o [facility] pctrs G40.909 Epilepsy, unsp, not intracta ble, [...] RPA 09/16/2020 I25.10 Atherosclerotic heart disease of [place] coronary artery with Chriss Olson, RPA 09/16/2020 G40.909 Epilepsy, unspecified, not intra ctable, without status epile Wesley, Chriss D, [facility] 09/16/2020 D69.6 Thrombocytopenia, unspecified Chriss Stanley, [facility] 09/16/2020 Z86.010 Personal history of colonic poly ps Chriss Olson, RPA 06/15/2020 E11.9 Type 2 diabetes mellitus without complications Chriss Olson, [facility] 06/15/2020 I10 Essential (primary) hypertension Chriss Olson, [facility] 06/15/2020 E78.5 Hyperlipidemia, unspecified Chriss Abarca, RPA 06/15/2020 R80.9 Proteinuria, unspecified Chriss Olson, [facility] 06/15/2020 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 Chriss Olson, [facility] 06/15/2020 Z95.0 Presence of cardiac pacemaker Chriss Stanley, [facility] 06/15/2020 Z95.2 Presence of prosthetic heart marie ve Chriss Olson, [facility] 06/15/2020 R01.1 Cardiac murmur, unspecified Chriss Abarca, [facility] 06/15/2020 I25.10 Atherosclerotic heart disease of [place] coronary artery with Chriss Olson, [facility] 06/15/2020 G40.909 Epilepsy, unspecified, not intra ctable, without status epile Chriss Olson, [facility] 06/15/2020 Z23 Encounter for immunization Chriss Concecpion, [facility] Plan of Treatment No Information Available Functional Status Description No Information Available Mental Status Description No Information Available Referrals Description No Information Available
--- OUTSIDE RECORDS SUMMARY | 2020-10-14 06:47 | CCD ---
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 cardiac pacemaker Presence of cardiac pace maker Diagnosis 07/15/2020 02:05:04 PM EDT [facility] Z95.1 Presence of aortocoronary bypass graft P resence of aortocoronary bypass graft Diagnosis 07/15/2020 02:05:04 PM EDT [facility] I25.10 Atherosclerotic heart diseas e of [place] coronary artery without angina pectoris Atherosclerotic heart disease of [place] Diagnosis 07/15/2020 02:05:04 PM EDT [facility] R06.09 Other forms of dyspnea Other forms of dyspnea Diagnosi s 06/10/2020 09:54:53 AM EDT [facility] D64.9 Anemia, unspecified Anemia, unspecified Diagnosis 0 05/26/2020 10:31:29 AM EDT [facility] I48.91 Unspecified atrial fibrillation Unspecified atri al fibrillation Diagnosis 02/25/2020 12:23:[address] [facility] R94.31 Abnormal electrocardiogram [ECG] [EKG] A bnormal electrocardiogram (ECG) (EKG) Diagnosis 02/25/2020 07:58:18 AM EDT [facility] Surgeries/Procedures Procedure Description Date Indications Data Source(s) Endoscopy Upper GI Complex Diagnostic 09/02/2020 12:00 :00 AM EST [facility] ([facility], ) Colonoscopy,W/Directed Submucosal Injections, Any Substance 09/02/2020 12:00:00 AM EST [facility] ([facility], ) Colonoscopy W/ Poly 09/02/2020 12:00:00 AM EST [facility] ([facility], ) Injection (SC)/(Im) 06/15/2020 12:00:00 AM EDT [facility] ([facility] Capillary Blood Collection Finger, Heel, Ear Stick 03/15/2020 12:00:00 AM EDT [facility] ([facility] ) Capillary Blood Collection Finger, Heel, Ear Stick 09/01/2019 12:00:00 AM EST [facility] ([facility] ) Results ID Date Data Source [id number] 10/10/2020 11:30:00 AM EST [facility] Name Value Range Interpretation Code Description Data Niurka rce(s) Supporting Document(s) SARS coronavirus 2 RNA Not Detected [facility] This lab was ordered by [facility] and reported by [facility]. ID Date Data Source [id number] 09/16/2020 09:08:00 AM EST [facility] ([facility] Name Value Range Interpretation Code Description Data Niurka rce(s) Supporting Document(s) Hemoglobin A1c/Hemoglobin.total in Blood 5.5 % 4.8-5.6 [facility] ([facility] <content>Prediabetes: 5.7 - 6.4</content >
<content>Diabetes: >6.4</content>
<content>Glycemic control for adults with diabetes: <7.0</content>
<content></content> ID Date Data Source [id number] 09/16/2020 09:08:00 AM EST [facility] ([facility] Name Value Range Interpretation Code Description Data Niurka rce(s) Supporting Document(s) Cholesterol in HDL [Mass/volume] in Serum or Plasma 50 mg/dL [facility] ([facility] Cholesterol [Mass/volume] in Serum or Plasma 140 mg/dL 100-199 [facility] ([facility] Triglyceride [Mass/volume] in Serum or Plasma 80 mg/dL 0-149 [facility] ([facility] Laboratory test finding (navigational concept) 74 mg/dL 0-99 [facility] ([facility] Laboratory test finding (navigational concept) 16 mg/dL 5-40 [facility] ([facility] Comment: Laboratory test result [facility] ([facility] ID Date Data Source [id number] 09/02/2020 10:53:00 AM EST [facility] ([facility]) Name Value Range Interpretation Code Description Data Niurka rce(s) Supporting Document(s) Surgical pathology study Laboratory test result [facility] ([facility]) FINAL DIAGNOSIS Ascending colon polyp, polypectomy: Tubular adenoma, fragments. 09/03/2020 - 1118 CLINICAL DIAGNOSIS Iron deficiency anemia and weight loss 09/02/2020 - 1517 GROSS DIAGNOSIS Received in formalin labeled "biopsy ascending colon polyp" and consists of a fragments of tissue, 0.2 x 0.1 x 0.1 cm. All in one. -OA 09/03/2020 - 1118 Signed ANDRE MELTON MD 09/03/20201118 ID Date Data Source [id number] 08/28/2020 09:00:00 AM EST [facility] Name Value Range Interpretation Code Description Data Niurka rce(s) Supporting Document(s) SARS coronavirus 2 RNA [facility] This lab was ordered by [facility] and reported by [facility]. ID Date Data Source [id number] 08/20/2020 08:54:50 AM EST [facility] Name Value Range Interpretation Code Description Data Niurka rce(s) Supporting Document(s) &PDF [facility] GNVJLd6oOfLEKvKy60/VGNoqQTPao5HaIQctOSu6GAqeGFEcI2ZerLwyZIrEHSMXSD3YKIvsGhFyJK5h oRX AhWoKTjKJ2AH2sJDFtlnDfoqP3tH1jYM9HBSP+Yg4KFU4ig4PjLTy6SPSkh4CfMNblPAh1E3WqnKCzkh LrAynneGTCEZQoMPIgN5dknpa2lIIbAML2If4HZyFyi4FqPIOjAWgQgc6a2A/bNhB/H7D/ifAc0wY6S6 1NYpukMH0MBdMLwtFGYLb6lYkX4jw7Z8lFj/31oyTK 7a7LoaZThIX3x8aNBu22rCdjK3MYota/F7y6R9LhCdP/y5+ZFexswr7+kj9FKtSjrxcDUl2/dryqIUpb ZmXCOprbcvzeeDLirDdjbyB/kZgkq/m7n5L/k//AWqh3ihIzPiY9pf4VIQgjEJobABUX9UZ/IYh1J7hJ KRc8jYxgmgSIdGB94uU+yTEhcX7WuR+KSY7V3jkTS1 jlxGB4gTThYuNOpbHO/IJuIi7HhQWZmQv0+YMksUEKahPpuijXKAfmy1LFTc8Fy7WXop6K6C+NiJ9SyT KGrMuNOmqKHrDUZXyXUKlib7KpeP7PIwRUTkwAAjYN0nMhM+Q0uJVuPWerRf1vytWlIPX6ad8ZNudcr3 Juvo2xngKqrVUHqjpMB/Uvc675ZV/R6JzL4xZ/vGWW t8T7kBkiw2IvvHPBOwFHFCAoCuVckjNw+ATPeCcT7mfuJJ3zaRM7hJOwU2CbYV44LvkeLOzhSl6kE9Fb IkDTworvfhkYAas2AH5xsiVnIBCh0II7dXwMfdU/mzWC/n8COzQFXu6c3iBQrALg5M+tiQkz7hQgLzm2 Da8ml58rt3Qwuk7VQ143E40G6EzacYET22vdst7H16 oScCGhSNPxOTNQuFhJyurAAMjNNiLh1V+cuGmx03THbNJMeo27ga1824jEBJdfbzNgMMtYuXCARJLUhx nXHiM5SO5yynpArI+tcoOyoN09319lCOm26HBlkoJT2hIseb0Bnm/Oihus5d2zWhIWh/eyZXhB4VkoRC AB9BWFB1Y0YWHLnSV2YGgu6ub4u34+5ksSN8AM6sOz sbKJrxNj6Har2c6Qx/PVWTnyH2gexlRltYoHEmwah7Vvvjxla4R6tZ22snoEcfY7AhFDVpCBuk5saoUI nO1/dobHQ7dv0Pxd6hWgGxsSut2gAzj9muV6Ifl4GERMKDsR+wWuPGRE1ROHC9rX1W/y9FlTuY0X7W/B uH9cZZYFRUNO+QRjoF8QIhVn/jGEJ6QnD7jaWQONii IK0uIAsB0KVwd9O5jEYpnQJ3fiKWKtm4ideQENsUX+zWSSz2/osvof0V2GdroWSa2oDtvrg0aTitudkx Hca/DC+02Q93mFkTasC85aCjwF3V6Tw4LwY5Dwh/4kqu31E5CeojNNNOwZfJwcCPrrAbtUYKDjFQkqZJ un131ThuHvm2x5JNJ/alB5oowPSwHKHyKFQc5G9rVN cgOHwpXc+jaya/115vn/nJy5jp6uPQUnzsULNglBzNOJDsGJSnLL39NFOiZpo4q2y4OzFkrQ3W+jeLP5c QwmT6fhRVA4FrFZdzHHbhKdeo5xdAGoLnq1xfWGRpHOErsz+ISlQJCenbQRBvvd+WdbUdXKryY7qBwXo jRX1wT+kCGW9bnhQqtWJ5LJhsg7cRMY7KTlLEk6Ncd fxMRQaohxNSZWYlWnQMTTqm+Ft0avekbWFraswq95LHmu1nLEOGHOLS6ndn7PkK/U4J72SL5eV4ir/q7 NKbtXNKoIfS7WqPgepV0kYUTVggYa6F1IsxRRMPxBAEOEQ6hDpvOUJhLeuNYGxfIQSLPv93JJbEFNcJB N9Efwlhr3yrvocI21wqoIwkpxey+7R+64CBrijtdzE [file] ICAgICAgICAgICAgICAgICAgICAgICAgICAgICAgIC GpJYUdZRNsOJUpKYKePVBkCSZcXX1NVOOqIXMaTKXoQSBgOZUwOIPeMZGtPOOnVGFuNTOiFHZbAOGeXW AgICAgICAgICAgICAgICAgICAgICAgICAgICAgICAgICAgICAgICAgICAgICAgICAgICAgICAgICAgIC WwYK7AUYQeCEBrFKCbQSFwOUHbVSOiEXNcSTEeTMVh ICAgICAgICAgICAgICAgICAgICAgICAgICAgICAgICAgICAgICAgICAgICAgICAgICAgICAgICAgICAg MBZbXFKyRGRtHEFdDR1LBJDvUJJuVLRaCUUpRCTgXDQmVBYrQPYgZCJiVNZbNMXhASIiSOFfWQDpAJNb ICAgICAgICAgICAgICAgICAgICAgICAgICAgICAgIC KvMNHtOYLfWLVmEWLlBSZlHSVhCORnRM3IELOjTDTrYZXcESAfHEStFEPoYXJiRKMkHDBnBWNpVXOuBY AgICAgICAgICAgICAgICAgICAgICAgICAgICAgICAgICAgICAgICAgICAgICAgICAgICAgICAgICAgIC RjHZQsZK2DPIZuQRKvASLnUZVrIQRnXFJgIJSpHYVn ICAgICAgICAgICAgICAgICAgICAgICAgICAgICAgICAgICAgICAgICAgICAgICAgICAgICAgICAgICAg ERCgBVQhVVTnACOzJZLsGM4IXUIuYWBvYYUjZAUjREPpWUTpRXZiZDUfYAXwQNYgUYUyAJEjHPDlQKYr ICAgICAgICAgICAgICAgICAgICAgICAgICAgICAgIC MjBLAgXOEqHUDnZUDeFFJkDONbETOvAQWzOV3UYXDnHBOmYPQvOXSdIACxGTPvMNVyULQgEULuGZFvXB AgICAgICAgICAgICAgICAgICAgICAgICAgICAgICAgICAgICAgICAgICAgICAgICAgICAgICAgICAgIC YhIBMnYKYxJY3MJRNyJGAjIEDsYHZvBRVnPYPkCCMa ICAgICAgICAgICAgICAgICAgICAgICAgICAgICAgICAgICAgICAgICAgICAgICAgICAgICAgICAgICAg DGBgPYGxLRIiTALjAMNyRTRjYH9SVLKjUAChMDHmAMPfSOZpXOPuQETmRIRxWTEwAXAsKBAdZCKuXOZn ICAgICAgICAgICAgICAgICAgICAgICAgICAgICAgIC YgZFGgTEYsXJWpUXSeCZNhGYLmEQMrAFOpDMAqVH0MAG82fVTco5B2ZUWwGF7eyvf/Ai4VBHjbewSiuY TnDM9WCkWtGP9sud7GDuRyIQ1fbs6KOLfMHoCbS4H3hVFxOITiTDDPDwMfC04cKGyhGh85WFrzRZLyKy HeDYq4Ac5WHcWxN4pgVATnNpZ1ZOXcCzMfYKuwKY7B r1UwyNKoLTo+Bl4MOL8oi7VmMHwrDJYlLS6obh7NCCyEOnIdB1Y6rQAiF5F8KWpdHr7OAWWdXTPmRGgr WBKDUTwcZH5QMU2vojZ7RI4QjCDjCIGrZSXkmDMrBCi3Y63zwCTmKPmdAW0ICOV+Hussein+Sz1XLMPkNGMv FGPjMvGvJYSUKdXrD03ggLTlXCTnDGB3TDFiGz6ZWB WyN5NrtrQwwQiuffTvMRRgPFWJOK6GJGaszaRpcPWxsUpsHA74sSgaUE5EIo4JLfYgZI5ohd8EuPWcOb 5YEURhZP7RUBUaTBUgWCLmIQL2UGIoAaCkANrwCUExGTNwSCC3BJJpCCZoYE9VBnRkEAYyQXD6LRakOG ZsIWKxfo5TAJTcLZHrAsO7KsQsZCOdOXYvUFseFWLn LRMvJBmoIIQeKDKqCX9LPoWgISGuFJF0SPLuZNFrISFxpb7DPGJhWNAzNgx9XBUpUTCtIUWcUMaiEYUm ZAMeBZJ9RYTrHZQiMN9XVeItGJWuCMJiMOEnTVKeRPSuoi1VLGReMAHjFTZyRXHaMYOjQLUlPBzyAWPi ECU3DdetOQFfAPQzKN1LVlQvPCNwLVX3PBJhMAOrIF Pnyh1ZIWYjHKSxTXX2QmDtTCBsAQVnEIbtXALbWXE9NzMvLDWnTEEuEB5RDqYeDSCsQNT8AbWsHVHuAC Vqwd7IHOJlDAAoQeAdXbTfOXThNAEbEWwpZDOoOJTaNuL8BOXsCAGpMO1GWvHnPSWtVXH2HzMdRAJqLY Kytp0VYRCcRBHsGcT0JoXgYKTzHHYcFBetSNQsNPS8 LBr1LLErBTNsWY5PRtWkSJrvBMGEDwh2CMepJ6t2XXFoQZ4WU9Vfx5VdNBxbJYQETKvwUK2kftVdIYFb It1QM5mNEiihKtGqMnkuE7CfOfFiRwljUGaoOCD2GJL7JOG7SDB5Ke8eCCJzDDFjYOX0EPNjPQA4UrG1 LGD8UBDmWKmiRNNcRYmhNdDpTB3IHn3VMaV8CUP0aHRiYi6GQHj1DUZUVjZmGS7HKTn= ID Date Data Source [id number] 07/15/2020 06:21:23 PM EDT [facility] Name Value Range Interpretation Code Description Data Niurka rce(s) Supporting Document(s) &PDF [facility] WYERHa5wLrTUTjNn39/UAMxkHUQyd2WfSEgvRCb0BHdfLOEdP7SkkJseHDtAQJLKSA5WTXmhUzWfJU9a yKE [file] ICAgICAgICAgICAgICAgICAgICAgICAgICAgICAgICAgICAgICAgICAgICAgICAgICAgICAgICAgICAg ICANCiAgICAgICAgICAgICAgICAgICAgICAgICAgIC AgICAgICAgICAgICAgICAgICAgICAgICAgICAgICAgICAgICAgICAgICAgICAgICAgICAgICAgICAgIC AgICAgICAgICAgICANCiAgICAgICAgICAgICAgICAgICAgICAgICAgICAgICAgICAgICAgICAgICAgIC AgICAgICAgICAgICAgICAgICAgICAgICAgICAgICAg ICAgICAgICAgICAgICAgICAgICAgICANCiAgICAgICAgICAgICAgICAgICAgICAgICAgICAgICAgICAg ICAgICAgICAgICAgICAgICAgICAgICAgICAgICAgICAgICAgICAgICAgICAgICAgICAgICAgICAgICAg ICAgICANCiAgICAgICAgICAgICAgICAgICAgICAgIC AgICAgICAgICAgICAgICAgICAgICAgICAgICAgICAgICAgICAgICAgICAgICAgICAgICAgICAgICAgIC AgICAgICAgICAgICAgICANCiAgICAgICAgICAgICAgICAgICAgICAgICAgICAgICAgICAgICAgICAgIC AgICAgICAgICAgICAgICAgICAgICAgICAgICAgICAg ICAgICAgICAgICAgICAgICAgICAgICAgICANCiAgICAgICAgICAgICAgICAgICAgICAgICAgICAgICAg ICAgICAgICAgICAgICAgICAgICAgICAgICAgICAgICAgICAgICAgICAgICAgICAgICAgICAgICAgICAg ICAgICAgICANCiAgICAgICAgICAgICAgICAgICAgIC AgICAgICAgICAgICAgICAgICAgICAgICAgICAgICAgICAgICAgICAgICAgICAgICAgICAgICAgICAgIC AgICAgICAgICAgICAgICAgICANCiAgICAgICAgICAgICAgICAgICAgICAgICAgICAgICAgICAgICAgIC AgICAgICAgICAgICAgICAgICAgICAgICAgICAgICAg ICAgICAgICAgICAgICAgICAgICAgICAgICAgICANCiAgICAgICAgICAgICAgICAgICAgICAgICAgICAg ICAgICAgICAgICAgICAgICAgICAgICAgICAgICAgICAgICAgICAgICAgICAgICAgICAgICAgICAgICAg ICAgICAgICAgICANCjw/jYMuO1yxbQDfqtL9B8ylJc 2SBr0YLD0st7KsWQSsUJetzyTmCvcCYsOrBAXxPeyZKow0MLlwHP2YrDNaV9NsV3ClUTlcXH4KUHCzJQ FdfNLgZAFtQKTtEuJ6RYMkNPnzVP6FwUXgCYohIVXyMQDeJrKuBAWgAVClBDKtPU9FJFMoU864jdAlVf 2HGd9OErPsHL8qki5OSqLvWBRsWqyZDio5ZElkDA3B xBCtD2FtsFAgu5tRCvYiE2SZUOFzKCZaAe5HRNQvBdVgOBTxCRxuXC4yFHUjHAMWwGzjfaF3WW8NTS1u vwGgJB4JZoReLn1oUc4DVgYcL0OwU4GgEZIsKRCNLHclQR1FJVWrHQE8YZIsDmRzSNCVMaJwJ13wZI5O J3Ndm55fYlG9FVSsMhOmAXsxHV67zQovueDzgJLkhM mvOZ6KIs1+CImyqqKjZygNYztxWYRERrTeLzYPDbSzAAZfRTBzQEUbFnS0TiOlCy1AMYWrYHAqRUOuWt QzGVJrSAVmBCkfDSUrADCfXaElLGQeBEZqIV9IRbWgPHMbMvD2QTSwVWMpUDDpot0NIAQiJZGqNCY1Mm HcKZWgMODhMHjnAPPfKFLpOsSuCYMrCYJqDV4GQdTg CIZeWWE5ViruTMZySIDeht2PPVMlCQZlFyL2CnTfNJIaPLCvNRxcTOVbPGD7SqblOQRhIZCbOC1EEgKn ACNmNBzrVmEaGDTcAFFzxg0LMBYtRXAoLqF7RpZxBXDqRZGzZClkYNWqRMV5DCG8QKOuBRLnVX1IAiZn OXPxTTs0QqSrIQTbZIVutm5CSPYmXEIkBSdzIvWnKD AlCYEaZZwbECMfFRV1Fyx9VCCuZTOgLS8GAeAlEMQzKMa6HljcELDyEMWaoa6DQDNwYFPdDWK6YjTyAS MkQPWvQYrgXXIePXHoOFS9SLJmXSDxKD3IEqKxAANqIPIeHxYpUCMmAYCxaq3DVVLnQVJzLQAyJPRvZO RxFVLcFEqxRYRlJWW8LlBrZSQqEXBfEA8XHjRqVDTf ApSfYxQtWFZfSTLarb6WTSQiNAIvRQS1OBWcSVWmUAKeVXozXBTxCLFqJKOmHQEfYUFuED2QSrGzKAnx FIJPBeq5BQoxB1j0HTUvGC0UG1Cmd5KuYqPdWZOKNAnnDF2ngmYuZOZgBm5XN0dTElj8LMDuFPQkJQY1 WYP6XiygLwF3APD5NzYiA5I7XoIhDw4tUKZvN0S7Ds GfDPv3EbmlTXC1SYsxBVOpYCN9IgJpGNOaCoTkGX1FPr2RSiK0QDP0eCMcMc4FCqRtXKyXMyItAS6ZKN o= ID Date Data Source [id number] 06/15/2020 09:36:00 AM EDT [facility] ([facility] Name Value Range Interpretation Code Description Data Niurka rce(s) Supporting Document(s) Hemoglobin A1c/Hemoglobin.total in Blood 5.3 % 4.8-5.6 [facility] ([facility] <content>Prediabetes: 5.7 - 6.4</content >
<content>Diabetes: >6.4</content>
<content>Glycemic control for adults with diabetes: <7.0</content>
<content></content> ID Date Data Source [id number] 06/15/2020 09:36:00 AM EDT [facility] ([facility] Name Value Range Interpretation Code Description Data Niurka rce(s) Supporting Document(s) Prostate specific Ag [Mass/volume] in Serum or Plasma 3.0 ng/mL 0.0- 4.0 [facility] ([facility] Juan Daniel ECLIA methodology. According to the [employer], Serum PSA should decrease and [...] the presence or absence of malignant disease. Thyrotropin [Units/volume] in Serum or Plasma 0.983 uIU/mL 0.450-4.50 0 [facility] ([facility] ID Date Data Source [id number] 06/15/2020 09:36:00 AM EDT [facility] ([facility] Name Value Range Interpretation Code Description Data Niurka rce(s) Supporting Document(s) BUN 16 mg/dL 8-27 [facility] Glucose [Mass/volume] in Serum or Plasma 133 mg/dL 65-99 Above high normal [facility] ([facility] eGFR If Africn Am 86 mL/min/1.73 [facility] ([facility] Creatinine [Mass/volume] in Serum or Plasma 0.99 mg/dL 0.76-1.27 [facility] ([facility] eGFR If NonAfricn Am 75 mL/min/1.73 [facility] ([facility] Potassium [Moles/volume] in Serum or Plasma 4.0 mmol/L 3.5-5.2 [facility] ([facility] Sodium [Moles/volume] in Serum or Plasma 137 mmol/L 134-144 [facility] ([facility] Urea nitrogen/Creatinine [Mass Ratio] in Serum or Plasma 16 1 0-24 [facility] ([facility] Protein [Mass/volume] in Serum or Plasma 6.6 g/dL 6.0-8.5 [facility] ([facility] Calcium [Mass/volume] in Serum or Plasma 8.7 mg/dL 8.6-10.2 [facility] ([facility] Chloride [Moles/volume] in Serum or Plasma 102 mmol/L 96-106 [facility] ([facility] Carbon dioxide, total [Moles/volume] in Serum or Plasma 24 mmol/L 20 -29 [facility] ([facility] Albumin [Mass/volume] in Serum or Plasma 4.0 g/dL 3.7-4.7 [facility] ([facility] Globulin [Mass/volume] in Serum by calculation 2.6 g/dL 1.5-4.5 [facility] ([facility] Albumin/Globulin [Mass Ratio] in Serum or Plasma 1.5 1.2-2.2 [facility] ([facility] Aspartate aminotransferase [Enzymatic activity/volume] in Serum or Plasma 23 IU/L 0-40 [facility] Bilirubin.total [Mass/volume] in Serum or Plasma 0.9 mg/dL 0.0-1.2 [facility] ([facility] Alkaline phosphatase [Enzymatic activity/volume] in Serum or Plasma 108 IU/L 39-117 [facility] Alanine aminotransferase [Enzymatic activity/volume] in Seru m or Plasma 16 IU/L 0-44 [facility] ID Date Data Source [id number] 03/15/2020 09:00:00 AM EDT [facility] ([facility] Name Value Range Interpretation Code Description Data Niurka rce(s) Supporting Document(s) Hemoglobin A1c/Hemoglobin.total in Blood 7.8 % 4.50-6.20 Above high normal [facility] ID Date Data Source [id number] 02/28/2020 10:37:00 AM EDT [facility] FASTING: UNKNOWNReceived: 02/28/2020 at 10:35:00 QPT: [facility] [place], [address], [address] [place], [address], Tomasz Weems MD Received: 02/28/2020 at 10:35:00 QPT : [facility], [address], [address] [place], [address], Tomasz Weems MD Name Value Range Interpretation Code Description Data Niurka rce(s) Supporting Document(s) Glucose [Mass/volume] in Serum or Plasma 221 mg/dL 65-99 Above high normal [facility] Fasting reference intervalFor someone without known diabetes, a glucosevalue >125 mg/dL indicates that they may havediabetes and this should be confirmed with afollow-up test. Urea nitrogen [Mass/volume] in Serum or Plasma 19 mg/dL 7 -25 Normal (applies to non-numeric results) [facility] Creatinine [Mass/volume] in Serum or Plasma 0.88 mg/dL 0.70 -1.18 Normal (applies to non-numeric results) [facility] For patients >49 years of age, the refer ence limitfor Creatinine is approximately 13% higher for peopleidentified as -Dutch. Glomerular filtration rate/1.73 sq M.pre dicted [Volume Rate/Area] in Serum, Plasma or Blood by Creatinine-based formula (MDRD) 85 mL/min/1.73m2 > OR = 60 Normal (applies to non-numeric results) [facility] Glomerular filtration rate/1.73 sq M pre dicted among blacks [Volume Rate/Area] in Serum or Plasma by Creatinine-based formula (MDRD) 98 mL/min/1.73m2 > OR = 60 Normal (applies to non-numeric results) [facility] Urea nitrogen/Creatinine [Mass Ratio] in Serum or Plasma NOT APPLICABLE (calc) 6-22 [facility] Sodium [Moles/volume] in Serum or Plasma 137 mmol/L 135-146 Normal (applies to non-numeric results) [facility] Potassium [Moles/volume] in Serum or Plasma 4.6 mmol/L 3.5- 5.3 Normal (applies to non-numeric results) [facility] Chloride [Moles/volume] in Serum or Plasma 105 mmol/L 98-11 0 Normal (applies to non-numeric results) [facility] Carbon dioxide, total [Moles/volume] in Serum or Plasma 26 mmol/ L 20-32 Normal (applies to non-numeric results) [facility] Calcium [Mass/volume] in Serum or Plasma 8.7 mg/dL 8.6-10. 3 Normal (applies to non-numeric results) [facility] ID Date Data Source [id number] 02/28/2020 10:37:00 AM EDT [facility] FASTING: UNKNOWNReceived: 02/28/2020 at 10:35:00 [facility]: [facility], [address], [address] [place] [address], [phone], Tomasz Weems MD Received: 02/28/2020 at 10:35:00 QPT : [facility], [address], [address] [place] [address], [phone], Tomasz Weems MD Name Value Range Interpretation Code Description Data Niurka rce(s) Supporting Document(s) Leukocytes [#/volume] in Blood by Automated count 9.0 Thousand/u L 3.8-10.8 Normal (applies to non-numeric results) [facility] Erythrocytes [#/volume] in Blood by Automated count 4.00 Million /uL 4.20-5.80 Below low normal [facility] Hemoglobin [Mass/volume] in Blood 9.2 g/dL 13.2-17.1 Below low nor mal [facility] Hematocrit [Volume Fraction] of Blood by Automated count 32.7 % 38.5-50.0 Below low normal [facility] Erythrocyte mean corpuscular volume [Entitic volume] by Auto mated count 81.8 fL 80.0-100.0 Normal (applies to non-numeric results) [facility] Erythrocyte mean corpuscular hemoglobin [Entitic mass] by Automated count 23.0 pg 27.0-33.0 Below low normal [facility] Erythrocyte mean corpuscular hemoglobin concentration [Mass/volume] by Automated count 28.1 g/dL 32.0-36.0 Below low normal [facility] Erythrocyte distribution width [Ratio] by Automated count 16.0 % 11.0-15.0 Above high normal [facility] Platelets [#/volume] in Blood by Automated count 220 Thousand/uL 140-400 Normal (applies to non-numeric results) [facility] Platelet mean volume [Entitic volume] in Blood by Miguel Angel 12. 8 fL 7.5-12.5 Above high normal [facility] Neutrophils [#/volume] in Blood by Automated count 7434 cells/uL 7001-8666 Normal (applies to non-numeric results) [facility] Lymphocytes [#/volume] in Blood by Automated count 909 cells/uL 850-3900 Normal (applies to non-numeric results) [facility] Monocytes [#/volume] in Blood by Automated count 603 cells/uL 200-950 Normal (applies to non-numeric results) [facility] Eosinophils [#/volume] in Blood by Automated count 27 cells/uL 15-500 Normal (applies to non-numeric results) [facility] Basophils [#/volume] in Blood by Automated count 27 cells/uL 0-200 Normal (applies to non-numeric results) [facility] Neutrophils/100 leukocytes in Blood by Automated count 82.6 % 38-80 Above high normal [facility] Lymphocytes/100 leukocytes in Blood by Automated count 10.1 % 15-49 Below low normal [facility] Monocytes/100 leukocytes in Blood by Automated count 6.7 % 0-13 Normal (applies to non-numeric results) [facility] Eosinophils/100 leukocytes in Blood by Automated count 0.3 % 0-8 Normal (applies to non-numeric results) [facility] Basophils/100 leukocytes in Blood by Automated count 0.3 % 0-2 Normal (applies to non-numeric results) [facility] ID Date Data Source [id number] 12/10/2019 09:10:00 AM EDT [facility] ([facility] Name Value Range Interpretation Code Description Data Niurka rce(s) Supporting Document(s) Thyrotropin [Units/volume] in Serum or Plasma 1.122 ulU/mL 0.60-4.8 [facility] ([facility] ID Date Data Source [id number] 12/10/2019 09:09:00 AM EDT [facility] Name Value Range Interpretation Code Description Data Niurka rce(s) Supporting Document(s) Hemoglobin A1c/Hemoglobin.total in Blood 7.3 % 4.50-6.20 Above high normal [facility] ([facility] ID Date Data Source [id number] 12/10/2019 09:09:00 AM EDT [facility] ([facility] Name Value Range Interpretation Code Description Data Niurka rce(s) Supporting Document(s) Chol 119 mg/dL 0-200 [facility] ([facility] CLASSIFICATION CHOLESTEROL FO R ADULTS CHILDREN/ADOLESCENTS* DESIRABLE: <200 MG/DL <170 MG/DL BORDER-LINE HIGH RISK: 200-239 MG/DL 170-199 MG/DL HIGH RISK: >240 MG/DL >200 MG/DL CLASS. FOR PRIMARY LDL CHOL PREVENTION: LDL CHOL-CHILD/ADOLESCENTS* DESIRABLE: <130 MG/DL <110 MG/DL BORDERLINE-HIGH RISK: 130-159 MG/DL 110-129 MG/DL HIGH RISK: >160 MG/DL >130 MG/DL *CHILDREN AND ADOLESCENTS REPRESENTS INDIVIDUALA AGED 2-19 YEARS EXCLUSIVE. CHRONIC KIDNEY DISEASE STAGING PER NKF: MALE GFR INTERPRETATION: 20-49 YRS: >60 mL/min Normal 50-59 YRS: >56 mL/min Normal 60-69 YRS: >49 mL/min Normal 70-79 YRS: >42 mL/min Normal 80 and above >35 mL/min Normal FEMALE GRF INTERPRETATION: 20-39 YRS: >60 mL/min Normal 40-49 YRS: >58 mL/min Normal 50-59 YRS: >51 mL/min Normal 60-69 YRS: >45 mL/min Normal 70-79 YRS: >39 mL/min Normal 80 and above >32 mL/min Normal LDL_C 60 Calc 75-129 Below low normal [facility] ( [facility] CLASSIFICATION CHOLESTEROL FO R ADULTS CHILDREN/ADOLESCENTS* DESIRABLE: <200 MG/DL <170 MG/DL BORDER-LINE HIGH RISK: 200-239 MG/DL 170-199 MG/DL HIGH RISK: >240 MG/DL >200 MG/DL CLASS. FOR PRIMARY LDL CHOL PREVENTION: LDL CHOL-CHILD/ADOLESCENTS* DESIRABLE: <130 MG/DL <110 MG/DL BORDERLINE-HIGH RISK: 130-159 MG/DL 110-129 MG/DL HIGH RISK: >160 MG/DL >130 MG/DL *CHILDREN AND ADOLESCENTS REPRESENTS INDIVIDUALA AGED 2-19 YEARS EXCLUSIVE. CHRONIC KIDNEY DISEASE STAGING PER NKF: MALE GFR INTERPRETATION: 20-49 YRS: >60 mL/min Normal 50-59 YRS: >56 mL/min Normal 60-69 YRS: >49 mL/min Normal 70-79 YRS: >42 mL/min Normal 80 and above >35 mL/min Normal FEMALE GRF INTERPRETATION: 20-39 YRS: >60 mL/min Normal 40-49 YRS: >58 mL/min Normal 50-59 YRS: >51 mL/min Normal 60-69 YRS: >45 mL/min Normal 70-79 YRS: >39 mL/min Normal 80 and above >32 mL/min Normal Prostate specific Ag [Mass/volume] in Serum or Plasma 46 mg/dL 35-5 5 [facility] ([facility] CLASSIFICATION CHOLESTEROL FO R ADULTS CHILDREN/ADOLESCENTS* DESIRABLE: <200 MG/DL <170 MG/DL BORDER-LINE HIGH RISK: 200-239 MG/DL 170-199 MG/DL HIGH RISK: >240 MG/DL >200 MG/DL CLASS. FOR PRIMARY LDL CHOL PREVENTION: LDL CHOL-CHILD/ADOLESCENTS* DESIRABLE: <130 MG/DL <110 MG/DL BORDERLINE-HIGH RISK: 130-159 MG/DL 110-129 MG/DL HIGH RISK: >160 MG/DL >130 MG/DL *CHILDREN AND ADOLESCENTS REPRESENTS INDIVIDUALA AGED 2-19 YEARS EXCLUSIVE. CHRONIC KIDNEY DISEASE STAGING PER NKF: MALE GFR INTERPRETATION: 20-49 YRS: >60 mL/min Normal 50-59 YRS: >56 mL/min Normal 60-69 YRS: >49 mL/min Normal 70-79 YRS: >42 mL/min Normal 80 and above >35 mL/min Normal FEMALE GRF INTERPRETATION: 20-39 YRS: >60 mL/min Normal 40-49 YRS: >58 mL/min Normal 50-59 YRS: >51 mL/min Normal 60-69 YRS: >45 mL/min Normal 70-79 YRS: >39 mL/min Normal 80 and above >32 mL/min Normal Trig 63 mg/dL 35-200 [facility] CLASSIFICATION CHOLESTEROL FO R ADULTS CHILDREN/ADOLESCENTS* DESIRABLE: <200 MG/DL <170 MG/DL BORDER-LINE HIGH RISK: 200-239 MG/DL 170-199 MG/DL HIGH RISK: >240 MG/DL >200 MG/DL CLASS. FOR PRIMARY LDL CHOL PREVENTION: LDL CHOL-CHILD/ADOLESCENTS* DESIRABLE: <130 MG/DL <110 MG/DL BORDERLINE-HIGH RISK: 130-159 MG/DL 110-129 MG/DL HIGH RISK: >160 MG/DL >130 MG/DL *CHILDREN AND ADOLESCENTS REPRESENTS INDIVIDUALA AGED 2-19 YEARS EXCLUSIVE. CHRONIC KIDNEY DISEASE STAGING PER NKF: MALE GFR INTERPRETATION: 20-49 YRS: >60 mL/min Normal 50-59 YRS: >56 mL/min Normal 60-69 YRS: >49 mL/min Normal 70-79 YRS: >42 mL/min Normal 80 and above >35 mL/min Normal FEMALE GRF INTERPRETATION: 20-39 YRS: >60 mL/min Normal 40-49 YRS: >58 mL/min Normal 50-59 YRS: >51 mL/min Normal 60-69 YRS: >45 mL/min Normal 70-79 YRS: >39 mL/min Normal 80 and above >32 mL/min Normal Cho/HDL Ratio 2.6 [facility]C [facility] CLASSIFICATION CHOLESTEROL FO R ADULTS CHILDREN/ADOLESCENTS* DESIRABLE: <200 MG/DL <170 MG/DL BORDER-LINE HIGH RISK: 200-239 MG/DL 170-199 MG/DL HIGH RISK: >240 MG/DL >200 MG/DL CLASS. FOR PRIMARY LDL CHOL PREVENTION: LDL CHOL-CHILD/ADOLESCENTS* DESIRABLE: <130 MG/DL <110 MG/DL BORDERLINE-HIGH RISK: 130-159 MG/DL 110-129 MG/DL HIGH RISK: >160 MG/DL >130 MG/DL *CHILDREN AND ADOLESCENTS REPRESENTS INDIVIDUALA AGED 2-19 YEARS EXCLUSIVE. CHRONIC KIDNEY DISEASE STAGING PER NKF: MALE GFR INTERPRETATION: 20-49 YRS: >60 mL/min Normal 50-59 YRS: >56 mL/min Normal 60-69 YRS: >49 mL/min Normal 70-79 YRS: >42 mL/min Normal 80 and above >35 mL/min Normal FEMALE GRF INTERPRETATION: 20-39 YRS: >60 mL/min Normal 40-49 YRS: >58 mL/min Normal 50-59 YRS: >51 mL/min Normal 60-69 YRS: >45 mL/min Normal 70-79 YRS: >39 mL/min Normal 80 and above >32 mL/min Normal ID Date Data Source [id number] 12/10/2019 09:09:00 AM EDT [facility] ([facility] Name Value Range Interpretation Code Description Data Niurka rce(s) Supporting Document(s) Glu 214 mg/dL 70-110 Above high normal [facility] ([facility] CLASSIFICATION CHOLESTEROL FO R ADULTS CHILDREN/ADOLESCENTS* DESIRABLE: <200 MG/DL <170 MG/DL BORDER-LINE HIGH RISK: 200-239 MG/DL 170-199 MG/DL HIGH RISK: >240 MG/DL >200 MG/DL CLASS. FOR PRIMARY LDL CHOL PREVENTION: LDL CHOL-CHILD/ADOLESCENTS* DESIRABLE: <130 MG/DL <110 MG/DL BORDERLINE-HIGH RISK: 130-159 MG/DL 110-129 MG/DL HIGH RISK: >160 MG/DL >130 MG/DL *CHILDREN AND ADOLESCENTS REPRESENTS INDIVIDUALA AGED 2-19 YEARS EXCLUSIVE. CHRONIC KIDNEY DISEASE STAGING PER NKF: MALE GFR INTERPRETATION: 20-49 YRS: >60 mL/min Normal 50-59 YRS: >56 mL/min Normal 60-69 YRS: >49 mL/min Normal 70-79 YRS: >42 mL/min Normal 80 and above >35 mL/min Normal FEMALE GRF INTERPRETATION: 20-39 YRS: >60 mL/min Normal 40-49 YRS: >58 mL/min Normal 50-59 YRS: >51 mL/min Normal 60-69 YRS: >45 mL/min Normal 70-79 YRS: >39 mL/min Normal 80 and above >32 mL/min Normal BUN 20 mg/dL 8-23 [facility] ([facility] CLASSIFICATION CHOLESTEROL FO R ADULTS CHILDREN/ADOLESCENTS* DESIRABLE: <200 MG/DL <170 MG/DL BORDER-LINE HIGH RISK: 200-239 MG/DL 170-199 MG/DL HIGH RISK: >240 MG/DL >200 MG/DL CLASS. FOR PRIMARY LDL CHOL PREVENTION: LDL CHOL-CHILD/ADOLESCENTS* DESIRABLE: <130 MG/DL <110 MG/DL BORDERLINE-HIGH RISK: 130-159 MG/DL 110-129 MG/DL HIGH RISK: >160 MG/DL >130 MG/DL *CHILDREN AND ADOLESCENTS REPRESENTS INDIVIDUALA AGED 2-19 YEARS EXCLUSIVE. CHRONIC KIDNEY DISEASE STAGING PER NKF: MALE GFR INTERPRETATION: 20-49 YRS: >60 mL/min Normal 50-59 YRS: >56 mL/min Normal 60-69 YRS: >49 mL/min Normal 70-79 YRS: >42 mL/min Normal 80 and above >35 mL/min Normal FEMALE GRF INTERPRETATION: 20-39 YRS: >60 mL/min Normal 40-49 YRS: >58 mL/min Normal 50-59 YRS: >51 mL/min Normal 60-69 YRS: >45 mL/min Normal 70-79 YRS: >39 mL/min Normal 80 and above >32 mL/min Normal BUN/Creatinine Ratio 18.5 CALC [facility] ([facility] CLASSIFICATION CHOLESTEROL FO R ADULTS CHILDREN/ADOLESCENTS* DESIRABLE: <200 MG/DL <170 MG/DL BORDER-LINE HIGH RISK: 200-239 MG/DL 170-199 MG/DL HIGH RISK: >240 MG/DL >200 MG/DL CLASS. FOR PRIMARY LDL CHOL PREVENTION: LDL CHOL-CHILD/ADOLESCENTS* DESIRABLE: <130 MG/DL <110 MG/DL BORDERLINE-HIGH RISK: 130-159 MG/DL 110-129 MG/DL HIGH RISK: >160 MG/DL >130 MG/DL *CHILDREN AND ADOLESCENTS REPRESENTS INDIVIDUALA AGED 2-19 YEARS EXCLUSIVE. CHRONIC KIDNEY DISEASE STAGING PER NKF: MALE GFR INTERPRETATION: 20-49 YRS: >60 mL/min Normal 50-59 YRS: >56 mL/min Normal 60-69 YRS: >49 mL/min Normal 70-79 YRS: >42 mL/min Normal 80 and above >35 mL/min Normal FEMALE GRF INTERPRETATION: 20-39 YRS: >60 mL/min Normal 40-49 YRS: >58 mL/min Normal 50-59 YRS: >51 mL/min Normal 60-69 YRS: >45 mL/min Normal 70-79 YRS: >39 mL/min Normal 80 and above >32 mL/min Normal Creat 1.1 mg/dL 0.7-1.2 [facility] CLASSIFICATION CHOLESTEROL FO R ADULTS CHILDREN/ADOLESCENTS* DESIRABLE: <200 MG/DL <170 MG/DL BORDER-LINE HIGH RISK: 200-239 MG/DL 170-199 MG/DL HIGH RISK: >240 MG/DL >200 MG/DL CLASS. FOR PRIMARY LDL CHOL PREVENTION: LDL CHOL-CHILD/ADOLESCENTS* DESIRABLE: <130 MG/DL <110 MG/DL BORDERLINE-HIGH RISK: 130-159 MG/DL 110-129 MG/DL HIGH RISK: >160 MG/DL >130 MG/DL *CHILDREN AND ADOLESCENTS REPRESENTS INDIVIDUALA AGED 2-19 YEARS EXCLUSIVE. CHRONIC KIDNEY DISEASE STAGING PER NKF: MALE GFR INTERPRETATION: 20-49 YRS: >60 mL/min Normal 50-59 YRS: >56 mL/min Normal 60-69 YRS: >49 mL/min Normal 70-79 YRS: >42 mL/min Normal 80 and above >35 mL/min Normal FEMALE GRF INTERPRETATION: 20-39 YRS: >60 mL/min Normal 40-49 YRS: >58 mL/min Normal 50-59 YRS: >51 mL/min Normal 60-69 YRS: >45 mL/min Normal 70-79 YRS: >39 mL/min Normal 80 and above >32 mL/min Normal K 4.8 mmol/L 3.5-5.1 [facility] ([facility] CLASSIFICATION CHOLESTEROL FO R ADULTS CHILDREN/ADOLESCENTS* DESIRABLE: <200 MG/DL <170 MG/DL BORDER-LINE HIGH RISK: 200-239 MG/DL 170-199 MG/DL HIGH RISK: >240 MG/DL >200 MG/DL CLASS. FOR PRIMARY LDL CHOL PREVENTION: LDL CHOL-CHILD/ADOLESCENTS* DESIRABLE: <130 MG/DL <110 MG/DL BORDERLINE-HIGH RISK: 130-159 MG/DL 110-129 MG/DL HIGH RISK: >160 MG/DL >130 MG/DL *CHILDREN AND ADOLESCENTS REPRESENTS INDIVIDUALA AGED 2-19 YEARS EXCLUSIVE. CHRONIC KIDNEY DISEASE STAGING PER NKF: MALE GFR INTERPRETATION: 20-49 YRS: >60 mL/min Normal 50-59 YRS: >56 mL/min Normal 60-69 YRS: >49 mL/min Normal 70-79 YRS: >42 mL/min Normal 80 and above >35 mL/min Normal FEMALE GRF INTERPRETATION: 20-39 YRS: >60 mL/min Normal 40-49 YRS: >58 mL/min Normal 50-59 YRS: >51 mL/min Normal 60-69 YRS: >45 mL/min Normal 70-79 YRS: >39 mL/min Normal 80 and above >32 mL/min Normal Na 134 mmol/L 136-145 Below low normal [facility] ( [facility] CLASSIFICATION CHOLESTEROL FO R ADULTS CHILDREN/ADOLESCENTS* DESIRABLE: <200 MG/DL <170 MG/DL BORDER-LINE HIGH RISK: 200-239 MG/DL 170-199 MG/DL HIGH RISK: >240 MG/DL >200 MG/DL CLASS. FOR PRIMARY LDL CHOL PREVENTION: LDL CHOL-CHILD/ADOLESCENTS* DESIRABLE: <130 MG/DL <110 MG/DL BORDERLINE-HIGH RISK: 130-159 MG/DL 110-129 MG/DL HIGH RISK: >160 MG/DL >130 MG/DL *CHILDREN AND ADOLESCENTS REPRESENTS INDIVIDUALA AGED 2-19 YEARS EXCLUSIVE. CHRONIC KIDNEY DISEASE STAGING PER NKF: MALE GFR INTERPRETATION: 20-49 YRS: >60 mL/min Normal 50-59 YRS: >56 mL/min Normal 60-69 YRS: >49 mL/min Normal 70-79 YRS: >42 mL/min Normal 80 and above >35 mL/min Normal FEMALE GRF INTERPRETATION: 20-39 YRS: >60 mL/min Normal 40-49 YRS: >58 mL/min Normal 50-59 YRS: >51 mL/min Normal 60-69 YRS: >45 mL/min Normal 70-79 YRS: >39 mL/min Normal 80 and above >32 mL/min Normal CL 100.0 mmol/L 98.0-107.0 [facility] ([facility] CLASSIFICATION CHOLESTEROL FO R ADULTS CHILDREN/ADOLESCENTS* DESIRABLE: <200 MG/DL <170 MG/DL BORDER-LINE HIGH RISK: 200-239 MG/DL 170-199 MG/DL HIGH RISK: >240 MG/DL >200 MG/DL CLASS. FOR PRIMARY LDL CHOL PREVENTION: LDL CHOL-CHILD/ADOLESCENTS* DESIRABLE: <130 MG/DL <110 MG/DL BORDERLINE-HIGH RISK: 130-159 MG/DL 110-129 MG/DL HIGH RISK: >160 MG/DL >130 MG/DL *CHILDREN AND ADOLESCENTS REPRESENTS INDIVIDUALA AGED 2-19 YEARS EXCLUSIVE. CHRONIC KIDNEY DISEASE STAGING PER NKF: MALE GFR INTERPRETATION: 20-49 YRS: >60 mL/min Normal 50-59 YRS: >56 mL/min Normal 60-69 YRS: >49 mL/min Normal 70-79 YRS: >42 mL/min Normal 80 and above >35 mL/min Normal FEMALE GRF INTERPRETATION: 20-39 YRS: >60 mL/min Normal 40-49 YRS: >58 mL/min Normal 50-59 YRS: >51 mL/min Normal 60-69 YRS: >45 mL/min Normal 70-79 YRS: >39 mL/min Normal 80 and above >32 mL/min Normal CA 9.3 mg/dL 8.6-10.2 [facility] ([facility] CLASSIFICATION CHOLESTEROL FO R ADULTS CHILDREN/ADOLESCENTS* DESIRABLE: <200 MG/DL <170 MG/DL BORDER-LINE HIGH RISK: 200-239 MG/DL 170-199 MG/DL HIGH RISK: >240 MG/DL >200 MG/DL CLASS. FOR PRIMARY LDL CHOL PREVENTION: LDL CHOL-CHILD/ADOLESCENTS* DESIRABLE: <130 MG/DL <110 MG/DL BORDERLINE-HIGH RISK: 130-159 MG/DL 110-129 MG/DL HIGH RISK: >160 MG/DL >130 MG/DL *CHILDREN AND ADOLESCENTS REPRESENTS INDIVIDUALA AGED 2-19 YEARS EXCLUSIVE. CHRONIC KIDNEY DISEASE STAGING PER NKF: MALE GFR INTERPRETATION: 20-49 YRS: >60 mL/min Normal 50-59 YRS: >56 mL/min Normal 60-69 YRS: >49 mL/min Normal 70-79 YRS: >42 mL/min Normal 80 and above >35 mL/min Normal FEMALE GRF INTERPRETATION: 20-39 YRS: >60 mL/min Normal 40-49 YRS: >58 mL/min Normal 50-59 YRS: >51 mL/min Normal 60-69 YRS: >45 mL/min Normal 70-79 YRS: >39 mL/min Normal 80 and above >32 mL/min Normal TP 6.6 g/dL 6.6-8.7 [facility] ([facility] CLASSIFICATION CHOLESTEROL FO R ADULTS CHILDREN/ADOLESCENTS* DESIRABLE: <200 MG/DL <170 MG/DL BORDER-LINE HIGH RISK: 200-239 MG/DL 170-199 MG/DL HIGH RISK: >240 MG/DL >200 MG/DL CLASS. FOR PRIMARY LDL CHOL PREVENTION: LDL CHOL-CHILD/ADOLESCENTS* DESIRABLE: <130 MG/DL <110 MG/DL BORDERLINE-HIGH RISK: 130-159 MG/DL 110-129 MG/DL HIGH RISK: >160 MG/DL >130 MG/DL *CHILDREN AND ADOLESCENTS REPRESENTS INDIVIDUALA AGED 2-19 YEARS EXCLUSIVE. CHRONIC KIDNEY DISEASE STAGING PER NKF: MALE GFR INTERPRETATION: 20-49 YRS: >60 mL/min Normal 50-59 YRS: >56 mL/min Normal 60-69 YRS: >49 mL/min Normal 70-79 YRS: >42 mL/min Normal 80 and above >35 mL/min Normal FEMALE GRF INTERPRETATION: 20-39 YRS: >60 mL/min Normal 40-49 YRS: >58 mL/min Normal 50-59 YRS: >51 mL/min Normal 60-69 YRS: >45 mL/min Normal 70-79 YRS: >39 mL/min Normal 80 and above >32 mL/min Normal Co2 23.4 mmol/L 22.0-29.0 [facility] ([facility] CLASSIFICATION CHOLESTEROL FO R ADULTS CHILDREN/ADOLESCENTS* DESIRABLE: <200 MG/DL <170 MG/DL BORDER-LINE HIGH RISK: 200-239 MG/DL 170-199 MG/DL HIGH RISK: >240 MG/DL >200 MG/DL CLASS. FOR PRIMARY LDL CHOL PREVENTION: LDL CHOL-CHILD/ADOLESCENTS* DESIRABLE: <130 MG/DL <110 MG/DL BORDERLINE-HIGH RISK: 130-159 MG/DL 110-129 MG/DL HIGH RISK: >160 MG/DL >130 MG/DL *CHILDREN AND ADOLESCENTS REPRESENTS INDIVIDUALA AGED 2-19 YEARS EXCLUSIVE. CHRONIC KIDNEY DISEASE STAGING PER NKF: MALE GFR INTERPRETATION: 20-49 YRS: >60 mL/min Normal 50-59 YRS: >56 mL/min Normal 60-69 YRS: >49 mL/min Normal 70-79 YRS: >42 mL/min Normal 80 and above >35 mL/min Normal FEMALE GRF INTERPRETATION: 20-39 YRS: >60 mL/min Normal 40-49 YRS: >58 mL/min Normal 50-59 YRS: >51 mL/min Normal 60-69 YRS: >45 mL/min Normal 70-79 YRS: >39 mL/min Normal 80 and above >32 mL/min Normal Alb 4.2 g/dL 3.5-5.2 [facility] ([facility] CLASSIFICATION CHOLESTEROL FO R ADULTS CHILDREN/ADOLESCENTS* DESIRABLE: <200 MG/DL <170 MG/DL BORDER-LINE HIGH RISK: 200-239 MG/DL 170-199 MG/DL HIGH RISK: >240 MG/DL >200 MG/DL CLASS. FOR PRIMARY LDL CHOL PREVENTION: LDL CHOL-CHILD/ADOLESCENTS* DESIRABLE: <130 MG/DL <110 MG/DL BORDERLINE-HIGH RISK: 130-159 MG/DL 110-129 MG/DL HIGH RISK: >160 MG/DL >130 MG/DL *CHILDREN AND ADOLESCENTS REPRESENTS INDIVIDUALA AGED 2-19 YEARS EXCLUSIVE. CHRONIC KIDNEY DISEASE STAGING PER NKF: MALE GFR INTERPRETATION: 20-49 YRS: >60 mL/min Normal 50-59 YRS: >56 mL/min Normal 60-69 YRS: >49 mL/min Normal 70-79 YRS: >42 mL/min Normal 80 and above >35 mL/min Normal FEMALE GRF INTERPRETATION: 20-39 YRS: >60 mL/min Normal 40-49 YRS: >58 mL/min Normal 50-59 YRS: >51 mL/min Normal 60-69 YRS: >45 mL/min Normal 70-79 YRS: >39 mL/min Normal 80 and above >32 mL/min Normal Alp 87.9 U/L 40-129 [facility] CLASSIFICATION CHOLESTEROL FO R ADULTS CHILDREN/ADOLESCENTS* DESIRABLE: <200 MG/DL <170 MG/DL BORDER-LINE HIGH RISK: 200-239 MG/DL 170-199 MG/DL HIGH RISK: >240 MG/DL >200 MG/DL CLASS. FOR PRIMARY LDL CHOL PREVENTION: LDL CHOL-CHILD/ADOLESCENTS* DESIRABLE: <130 MG/DL <110 MG/DL BORDERLINE-HIGH RISK: 130-159 MG/DL 110-129 MG/DL HIGH RISK: >160 MG/DL >130 MG/DL *CHILDREN AND ADOLESCENTS REPRESENTS INDIVIDUALA AGED 2-19 YEARS EXCLUSIVE. CHRONIC KIDNEY DISEASE STAGING PER NKF: MALE GFR INTERPRETATION: 20-49 YRS: >60 mL/min Normal 50-59 YRS: >56 mL/min Normal 60-69 YRS: >49 mL/min Normal 70-79 YRS: >42 mL/min Normal 80 and above >35 mL/min Normal FEMALE GRF INTERPRETATION: 20-39 YRS: >60 mL/min Normal 40-49 YRS: >58 mL/min Normal 50-59 YRS: >51 mL/min Normal 60-69 YRS: >45 mL/min Normal 70-79 YRS: >39 mL/min Normal 80 and above >32 mL/min Normal A/G Ratio 1.7 CALC [facility] ([facility] CLASSIFICATION CHOLESTEROL FO R ADULTS CHILDREN/ADOLESCENTS* DESIRABLE: <200 MG/DL <170 MG/DL BORDER-LINE HIGH RISK: 200-239 MG/DL 170-199 MG/DL HIGH RISK: >240 MG/DL >200 MG/DL CLASS. FOR PRIMARY LDL CHOL PREVENTION: LDL CHOL-CHILD/ADOLESCENTS* DESIRABLE: <130 MG/DL <110 MG/DL BORDERLINE-HIGH RISK: 130-159 MG/DL 110-129 MG/DL HIGH RISK: >160 MG/DL >130 MG/DL *CHILDREN AND ADOLESCENTS REPRESENTS INDIVIDUALA AGED 2-19 YEARS EXCLUSIVE. CHRONIC KIDNEY DISEASE STAGING PER NKF: MALE GFR INTERPRETATION: 20-49 YRS: >60 mL/min Normal 50-59 YRS: >56 mL/min Normal 60-69 YRS: >49 mL/min Normal 70-79 YRS: >42 mL/min Normal 80 and above >35 mL/min Normal FEMALE GRF INTERPRETATION: 20-39 YRS: >60 mL/min Normal 40-49 YRS: >58 mL/min Normal 50-59 YRS: >51 mL/min Normal 60-69 YRS: >45 mL/min Normal 70-79 YRS: >39 mL/min Normal 80 and above >32 mL/min Normal Globulin 2.4 CALC [facility] ([facility] CLASSIFICATION CHOLESTEROL FO R ADULTS CHILDREN/ADOLESCENTS* DESIRABLE: <200 MG/DL <170 MG/DL BORDER-LINE HIGH RISK: 200-239 MG/DL 170-199 MG/DL HIGH RISK: >240 MG/DL >200 MG/DL CLASS. FOR PRIMARY LDL CHOL PREVENTION: LDL CHOL-CHILD/ADOLESCENTS* DESIRABLE: <130 MG/DL <110 MG/DL BORDERLINE-HIGH RISK: 130-159 MG/DL 110-129 MG/DL HIGH RISK: >160 MG/DL >130 MG/DL *CHILDREN AND ADOLESCENTS REPRESENTS INDIVIDUALA AGED 2-19 YEARS EXCLUSIVE. CHRONIC KIDNEY DISEASE STAGING PER NKF: MALE GFR INTERPRETATION: 20-49 YRS: >60 mL/min Normal 50-59 YRS: >56 mL/min Normal 60-69 YRS: >49 mL/min Normal 70-79 YRS: >42 mL/min Normal 80 and above >35 mL/min Normal FEMALE GRF INTERPRETATION: 20-39 YRS: >60 mL/min Normal 40-49 YRS: >58 mL/min Normal 50-59 YRS: >51 mL/min Normal 60-69 YRS: >45 mL/min Normal 70-79 YRS: >39 mL/min Normal 80 and above >32 mL/min Normal Alt (SGPT) 13 U/L 0-41 [facility] ([facility] CLASSIFICATION CHOLESTEROL FO R ADULTS CHILDREN/ADOLESCENTS* DESIRABLE: <200 MG/DL <170 MG/DL BORDER-LINE HIGH RISK: 200-239 MG/DL 170-199 MG/DL HIGH RISK: >240 MG/DL >200 MG/DL CLASS. FOR PRIMARY LDL CHOL PREVENTION: LDL CHOL-CHILD/ADOLESCENTS* DESIRABLE: <130 MG/DL <110 MG/DL BORDERLINE-HIGH RISK: 130-159 MG/DL 110-129 MG/DL HIGH RISK: >160 MG/DL >130 MG/DL *CHILDREN AND ADOLESCENTS REPRESENTS INDIVIDUALA AGED 2-19 YEARS EXCLUSIVE. CHRONIC KIDNEY DISEASE STAGING PER NKF: MALE GFR INTERPRETATION: 20-49 YRS: >60 mL/min Normal 50-59 YRS: >56 mL/min Normal 60-69 YRS: >49 mL/min Normal 70-79 YRS: >42 mL/min Normal 80 and above >35 mL/min Normal FEMALE GRF INTERPRETATION: 20-39 YRS: >60 mL/min Normal 40-49 YRS: >58 mL/min Normal 50-59 YRS: >51 mL/min Normal 60-69 YRS: >45 mL/min Normal 70-79 YRS: >39 mL/min Normal 80 and above >32 mL/min Normal Tbili 0.75 mg/dL 0.0-1.2 [facility] ([facility] CLASSIFICATION CHOLESTEROL FO R ADULTS CHILDREN/ADOLESCENTS* DESIRABLE: <200 MG/DL <170 MG/DL BORDER-LINE HIGH RISK: 200-239 MG/DL 170-199 MG/DL HIGH RISK: >240 MG/DL >200 MG/DL CLASS. FOR PRIMARY LDL CHOL PREVENTION: LDL CHOL-CHILD/ADOLESCENTS* DESIRABLE: <130 MG/DL <110 MG/DL BORDERLINE-HIGH RISK: 130-159 MG/DL 110-129 MG/DL HIGH RISK: >160 MG/DL >130 MG/DL *CHILDREN AND ADOLESCENTS REPRESENTS INDIVIDUALA AGED 2-19 YEARS EXCLUSIVE. CHRONIC KIDNEY DISEASE STAGING PER NKF: MALE GFR INTERPRETATION: 20-49 YRS: >60 mL/min Normal 50-59 YRS: >56 mL/min Normal 60-69 YRS: >49 mL/min Normal 70-79 YRS: >42 mL/min Normal 80 and above >35 mL/min Normal FEMALE GRF INTERPRETATION: 20-39 YRS: >60 mL/min Normal 40-49 YRS: >58 mL/min Normal 50-59 YRS: >51 mL/min Normal 60-69 YRS: >45 mL/min Normal 70-79 YRS: >39 mL/min Normal 80 and above >32 mL/min Normal Ast (Sgot) 21 U/L 0-40 [facility] ([facility] CLASSIFICATION CHOLESTEROL FO R ADULTS CHILDREN/ADOLESCENTS* DESIRABLE: <200 MG/DL <170 MG/DL BORDER-LINE HIGH RISK: 200-239 MG/DL 170-199 MG/DL HIGH RISK: >240 MG/DL >200 MG/DL CLASS. FOR PRIMARY LDL CHOL PREVENTION: LDL CHOL-CHILD/ADOLESCENTS* DESIRABLE: <130 MG/DL <110 MG/DL BORDERLINE-HIGH RISK: 130-159 MG/DL 110-129 MG/DL HIGH RISK: >160 MG/DL >130 MG/DL *CHILDREN AND ADOLESCENTS REPRESENTS INDIVIDUALA AGED 2-19 YEARS EXCLUSIVE. CHRONIC KIDNEY DISEASE STAGING PER NKF: MALE GFR INTERPRETATION: 20-49 YRS: >60 mL/min Normal 50-59 YRS: >56 mL/min Normal 60-69 YRS: >49 mL/min Normal 70-79 YRS: >42 mL/min Normal 80 and above >35 mL/min Normal FEMALE GRF INTERPRETATION: 20-39 YRS: >60 mL/min Normal 40-49 YRS: >58 mL/min Normal 50-59 YRS: >51 mL/min Normal 60-69 YRS: >45 mL/min Normal 70-79 YRS: >39 mL/min Normal 80 and above >32 mL/min Normal Anion Gap 16 mmol/L [facility] ([facility] CLASSIFICATION CHOLESTEROL FO R ADULTS CHILDREN/ADOLESCENTS* DESIRABLE: <200 MG/DL <170 MG/DL BORDER-LINE HIGH RISK: 200-239 MG/DL 170-199 MG/DL HIGH RISK: >240 MG/DL >200 MG/DL CLASS. FOR PRIMARY LDL CHOL PREVENTION: LDL CHOL-CHILD/ADOLESCENTS* DESIRABLE: <130 MG/DL <110 MG/DL BORDERLINE-HIGH RISK: 130-159 MG/DL 110-129 MG/DL HIGH RISK: >160 MG/DL >130 MG/DL *CHILDREN AND ADOLESCENTS REPRESENTS INDIVIDUALA AGED 2-19 YEARS EXCLUSIVE. CHRONIC KIDNEY DISEASE STAGING PER NKF: MALE GFR INTERPRETATION: 20-49 YRS: >60 mL/min Normal 50-59 YRS: >56 mL/min Normal 60-69 YRS: >49 mL/min Normal 70-79 YRS: >42 mL/min Normal 80 and above >35 mL/min Normal FEMALE GRF INTERPRETATION: 20-39 YRS: >60 mL/min Normal 40-49 YRS: >58 mL/min Normal 50-59 YRS: >51 mL/min Normal 60-69 YRS: >45 mL/min Normal 70-79 YRS: >39 mL/min Normal 80 and above >32 mL/min Normal Osmolality-Calculated 277.5 CALC [facility] ([facility] CLASSIFICATION CHOLESTEROL FO R ADULTS CHILDREN/ADOLESCENTS* DESIRABLE: <200 MG/DL <170 MG/DL BORDER-LINE HIGH RISK: 200-239 MG/DL 170-199 MG/DL HIGH RISK: >240 MG/DL >200 MG/DL CLASS. FOR PRIMARY LDL CHOL PREVENTION: LDL CHOL-CHILD/ADOLESCENTS* DESIRABLE: <130 MG/DL <110 MG/DL BORDERLINE-HIGH RISK: 130-159 MG/DL 110-129 MG/DL HIGH RISK: >160 MG/DL >130 MG/DL *CHILDREN AND ADOLESCENTS REPRESENTS INDIVIDUALA AGED 2-19 YEARS EXCLUSIVE. CHRONIC KIDNEY DISEASE STAGING PER NKF: MALE GFR INTERPRETATION: 20-49 YRS: >60 mL/min Normal 50-59 YRS: >56 mL/min Normal 60-69 YRS: >49 mL/min Normal 70-79 YRS: >42 mL/min Normal 80 and above >35 mL/min Normal FEMALE GRF INTERPRETATION: 20-39 YRS: >60 mL/min Normal 40-49 YRS: >58 mL/min Normal 50-59 YRS: >51 mL/min Normal 60-69 YRS: >45 mL/min Normal 70-79 YRS: >39 mL/min Normal 80 and above >32 mL/min Normal eGFR 76 # [facility] ( [facility] CLASSIFICATION CHOLESTEROL FO R ADULTS CHILDREN/ADOLESCENTS* DESIRABLE: <200 MG/DL <170 MG/DL BORDER-LINE HIGH RISK: 200-239 MG/DL 170-199 MG/DL HIGH RISK: >240 MG/DL >200 MG/DL CLASS. FOR PRIMARY LDL CHOL PREVENTION: LDL CHOL-CHILD/ADOLESCENTS* DESIRABLE: <130 MG/DL <110 MG/DL BORDERLINE-HIGH RISK: 130-159 MG/DL 110-129 MG/DL HIGH RISK: >160 MG/DL >130 MG/DL *CHILDREN AND ADOLESCENTS REPRESENTS INDIVIDUALA AGED 2-19 YEARS EXCLUSIVE. CHRONIC KIDNEY DISEASE STAGING PER NKF: MALE GFR INTERPRETATION: 20-49 YRS: >60 mL/min Normal 50-59 YRS: >56 mL/min Normal 60-69 YRS: >49 mL/min Normal 70-79 YRS: >42 mL/min Normal 80 and above >35 mL/min Normal FEMALE GRF INTERPRETATION: 20-39 YRS: >60 mL/min Normal 40-49 YRS: >58 mL/min Normal 50-59 YRS: >51 mL/min Normal 60-69 YRS: >45 mL/min Normal 70-79 YRS: >39 mL/min Normal 80 and above >32 mL/min Normal eGFR Non-Afr. Dutch 66 # [facility] ([facility] CLASSIFICATION CHOLESTEROL FO R ADULTS CHILDREN/ADOLESCENTS* DESIRABLE: <200 MG/DL <170 MG/DL BORDER-LINE HIGH RISK: 200-239 MG/DL 170-199 MG/DL HIGH RISK: >240 MG/DL >200 MG/DL CLASS. FOR PRIMARY LDL CHOL PREVENTION: LDL CHOL-CHILD/ADOLESCENTS* DESIRABLE: <130 MG/DL <110 MG/DL BORDERLINE-HIGH RISK: 130-159 MG/DL 110-129 MG/DL HIGH RISK: >160 MG/DL >130 MG/DL *CHILDREN AND ADOLESCENTS REPRESENTS INDIVIDUALA AGED 2-19 YEARS EXCLUSIVE. CHRONIC KIDNEY DISEASE STAGING PER NKF: MALE GFR INTERPRETATION: 20-49 YRS: >60 mL/min Normal 50-59 YRS: >56 mL/min Normal 60-69 YRS: >49 mL/min Normal 70-79 YRS: >42 mL/min Normal 80 and above >35 mL/min Normal FEMALE GRF INTERPRETATION: 20-39 YRS: >60 mL/min Normal 40-49 YRS: >58 mL/min Normal 50-59 YRS: >51 mL/min Normal 60-69 YRS: >45 mL/min Normal 70-79 YRS: >39 mL/min Normal 80 and above >32 mL/min Normal ID Date Data Source [id number] 09/01/2019 01:36:00 PM EST [facility] ([facility] Name Value Range Interpretation Code Description Data Niurka rce(s) Supporting Document(s) Hemoglobin A1c/Hemoglobin.total in Blood 6.4 % 4.50-6.20 Above high normal [facility] ([facility] Procedure Social History Code Duration Value Status Description Data Source(s ) Alcohol intake 07/16/2020 12:00:00 AM EDT Not Currently completed [facility] Cigarette pack-years 07/16/2020 12:00:00 AM EDT UNK completed [facility] Cigarettes smoked current (pack per day) - Reported 07/16/20 20 12:00:00 AM EDT UNK completed [facility] Smoking 07/16/2020 12:00:00 AM EDT Former smoker completed Former smoker [facility] Vital Signs ID Date Data Source UNK Name Value Range Interpretation Code Description Data Source(s) Body surface area Derived from formula 1.94 m2 1.94 m2 [facility] ([facility]) Body weight 80.741 kg 80.741 kg [facility] ([facility]) [place] body weight 154 [lb_av] 154 [lb_av] [facility] Body mass index (BMI) [Ratio] 27.1 kg/m2 27.1 k g/m2 [facility] ([facility]) Body weight 178.00 [lb_av] 178.00 [lb_av] [facility] Body height 68 [in_i] 68 [in_i] [facility] ([facility]) 5'8" Diastolic blood pressure 78 mm[Hg] 78 mm[Hg] [facility] ([facility]) Systolic blood pressure 134 mm[Hg] 134 mm[Hg] [facility] Oxygen saturation in Arterial blood by Pulse oximetry 97 % 97 % [facility] Body mass index (BMI) [Ratio] 27.1 kg/m2 27.1 k g/m2 [facility] ([facility] [place] body weight 154 [lb_av] 154 [lb_av] [facility] ([facility] Body weight 178.00 [lb_av] 178.00 [lb_av] [facility] Body height 68 [in_i] 68 [in_i] [facility] ([facility] 5'8" Respiratory rate 16 /min 16 /min [facility] ( [facility] Heart rate 87 /min 87 /min [facility] ([facility] Body temperature 97.6 [degF] 97.6 [degF] [facility] ([facility] Diastolic blood pressure 70 mm[Hg] 70 mm[Hg] [facility] ([facility] Systolic blood pressure 116 mm[Hg] 116 mm[Hg] [facility] ([facility] Body surface area Derived from formula 1.91 m2 1.91 m2 [facility] ([facility]) Body weight 79.380 kg 79.380 kg [facility] ([facility]) [place] body weight 148 [lb_av] 148 [lb_av] [facility] ([facility]) Body mass index (BMI) [Ratio] 27.4 kg/m2 27.4 k g/m2 [facility] ([facility]) Body weight 175.00 [lb_av] 175.00 [lb_av] [facility] ([facility]) Body height 67 [in_i] 67 [in_i] [facility] 5'7" Diastolic blood pressure 70 mm[Hg] 70 mm[Hg] [facility] ([facility]) Systolic blood pressure 120 mm[Hg] 120 mm[Hg] [facility] Body surface area Derived from formula 1.92 m2 1.92 m2 [facility] ([facility]) Body weight 79.834 kg 79.834 kg [facility] ([facility]) [place] body weight 148 [lb_av] 148 [lb_av] [facility] T ([facility]) Body mass index (BMI) [Ratio] 27.6 kg/m2 27.6 k g/m2 [facility] ([facility]) Body weight 176.00 [lb_av] 176.00 [lb_av] MED[facility] T ([facility], ) Body height 67 [in_i] 67 [in_i] [facility] ([facility], ) Diastolic blood pressure 64 mm[Hg] 64 mm[Hg] ISAÍAS ([facility], ) Systolic blood pressure 122 mm[Hg] 122 mm[Hg] John NUGENT ([facility], ) Oxygen saturation in Arterial blood by Pulse oximetry 99 % 99 % [facility] Body mass index (BMI) [Ratio] 26.61 kg/m2 26.61 kg/m2 [facility] Body weight 79.379 kg 79.379 kg [facility] Body height 172.7 cm 172.7 cm [facility] Heart rate 83 /min 83 /min [facility] Diastolic blood pressure 62 mm[Hg] 62 mm[Hg] [facility] Systolic blood pressure 118 mm[Hg] 118 mm[Hg] [facility] Oxygen saturation in Arterial blood by Pulse oximetry 98 % 98 % [facility] ([facility] Body mass index (BMI) [Ratio] 28.1 kg/m2 28.1 k g/m2 [facility] ([facility] [place] body weight 154 [lb_av] 154 [lb_av] [facility] T ([facility] Body weight 185.00 [lb_av] 185.00 [lb_av] [facility] T ([facility] Body height 68 [in_i] 68 [in_i] [facility] ([facility] 5'8" Respiratory rate 16 /min 16 /min [facility] ( [facility] Heart rate 53 /min 53 /min [facility] ([facility] Body temperature 97.6 [degF] 97.6 [degF] [facility] ([facility] Diastolic blood pressure 76 mm[Hg] 76 mm[Hg] [facility] ([facility] Systolic blood pressure 126 mm[Hg] 126 mm[Hg] M EDENT ([facility] Oxygen saturation in Arterial blood by Pulse oximetry 96 % 96 % [facility] ([facility] Body mass index (BMI) [Ratio] 29.2 kg/m2 29.2 k g/m2 [facility] ([facility] [place] body weight 154 [lb_av] 154 [lb_av] MED[facility] T ([facility] Body weight 192.00 [lb_av] 192.00 [lb_av] [facility] T ([facility] Body height 68 [in_i] 68 [in_i] [facility] ([facility] 5'8" Respiratory rate 16 /min 16 /min [facility] ( [facility] Heart rate 88 /min 88 /min [facility] ([facility] Body temperature 97.8 [degF] 97.8 [degF] [facility] ([facility] Diastolic blood pressure 62 mm[Hg] 62 mm[Hg] [facility] ([facility] Systolic blood pressure 132 mm[Hg] 132 mm[Hg] M EDTAMIR ([facility] Oxygen saturation in Arterial blood by Pulse oximetry 97 % 97 % [facility] ([facility] Body mass index (BMI) [Ratio] 28.0 kg/m2 28.0 k g/m2 [facility] ([facility] [place] body weight 154 [lb_av] 154 [lb_av] MED[facility] T ([facility] Body weight 184.00 [lb_av] 184.00 [lb_av] MEDEN T ([facility] Body height 68 [in_i] 68 [in_i] [facility] ([facility] 5'8" Respiratory rate 16 /min 16 /min [facility] ( [facility] Heart rate 91 /min 91 /min [facility] ([facility] Body temperature 97.8 [degF] 97.8 [degF] [facility] ([facility] Diastolic blood pressure 68 mm[Hg] 68 mm[Hg] ISAÍAS ([facility] Systolic blood pressure 116 mm[Hg] 116 mm[Hg] M RAFFI ([facility] Oxygen saturation in Arterial blood by Pulse oximetry 97 % 97 % ISAÍAS ([facility] Body mass index (BMI) [Ratio] 27.2 kg/m2 27.2 k g/m2 [facility] ([facility] Body weight 179.00 [lb_av] 179.00 [lb_av] MEDEN T ([facility] Body height 68 [in_i] 68 [in_i] ISAÍAS ([facility] 5'8" Respiratory rate 16 /min 16 /min ISAÍAS ( [facility] Heart rate 91 /min 91 /min ISA[facility]AS ([facility] Body temperature 97.6 [degF] 97.6 [degF] ISAÍAS ([facility] Diastolic blood pressure 60 mm[Hg] 60 mm[Hg] ISA[facility]AS ([facility] Systolic blood pressure 104 mm[Hg] 104 mm[Hg] M RAFFI ([facility] Patient Treatment Plan of Care Planned Activity Planned Date Details Description Data Source (s) Simvastatin 40 MG Oral Tablet 06/10/2020 12:00:00 AM EDT [facility] ferrous sulfate 325 MG Oral Tablet 06/10/2020 12:00:00 AM EDT [facility] Metoprolol Tartrate 25 MG Oral Tablet 06/09/2020 12:00:00 AM EDT [facility] Furosemide 40 MG Oral Tablet 06/04/2020 12:00:00 AM EDT [facility] Lisinopril 20 MG Oral Tablet 04/19/2020 12:00:00 AM EDT [facility] Warfarin Sodium 5 MG Oral Tablet 12/12/2019 12:00:00 AM EDT [facility] Metformin hydrochloride 500 MG Oral Tablet 11/07/2019 12:00:00 AM E [facility] 24 HR Glipizide 5 MG Extended Release Oral Tablet 10/16/2019 12: 00:00 AM EST [facility]
--- OUTSIDE RECORDS SUMMARY | 2020-10-14 06:47 | CCD | Continuity of Care Document ---
Author Author Jamarcus MULLER MD Organization Unknown Address [address] [address] Phone [phone] Care Team Providers Care Hydrogenation Still Operator Name Role Phone Alexa Shepard AUTM [phone] AUTM Unavailable Problems Active Problems Provider Date [...] Provide r Date Warfarin Sodium 5mg Tablets 1 Tab PO On Sun/Sun/Sun/Sat/Sun Unknown Warfarin Sodium 2.5mg Tablets 1 Tab PO On / Unknown Lisinopril 20mg Tablets 1 Tab PO qd Unknown Glipizide 5mg Tablets 1 Tab P O qd Unknown Furosemide 40mg Tablets 1 Tab PO qd Unknown Metoprolol Tartrate 25mg Tablets 1 Tab PO qd Unknown Iron 325(65Fe) mg Tablets take 1 tablet by mouth daily. Unknown Levetiracetam 750mg Tablets 1 PO bid Unknown Metformin HCL 500mg Tablets 1 Tab PO qd Unknown History Medications Suprep Bowel Prep Kit 17.5-3.13-1.6GM/177ML Solution take per doctor's bowel prep instructions. 354ml Ezekiel Del Angel NP 08/25/2020 - 09/07/2020 Immunizations Description No Information Available Vital Signs Date Vital Result Comment 09/08/2020 10:13am BP Systolic 120 mmHg BP Diastolic 70 mmHg Height 67 inches 5'7" Weight 175.00 lb BMI (Body Mass Index) 27.4 kg/m2 [place] [facility] Weight 148 lb Weight 79.380 kg BSA (Body Surface Area) 1.91 m2 07/27/2020 4:02pm BP Systolic 122 mmHg BP Diastolic 64 mmHg Height 67 inches Weight 176.00 lb BMI (Body Mass Index) 27.6 kg/m2 [place] Body Weight 148 lb Weight 79.834 kg BSA (Body Surface Area) 1.92 m2 Results Test Acquired Date Facility Test Result H/L Range Note Laboratory test finding 09/02/2020 [facility] [address] [place], [place] [id number] [phone] Pathology Request For Service (SEE NOTE) 1 1 FINAL DIAGNOSIS Ascending colon polyp, polypectomy: Tubular adenoma, fragments. 09/03/2020 - 1119 CLINICAL DIAGNOSIS Iron deficiency anemia and weight loss 09/02/2020 - 1517 GROSS DIAGNOSIS Received in formalin labeled "biopsy ascending colon polyp" and consists of a fragments of tissue, 0.2 x 0.1 x 0.1 cm. All in one. -OA 09/03/2020 - 1119 Signed ANDRE MELTON MD 09/03/2020 1119 Procedures Date Code Description Status 09/02/2020 63473 Colonoscopy W/ Poly Completed 09/02/2020 42552 Colonoscopy,W/Directed Submucosa l Injections, Any Substance Completed 09/02/2020 59345 Endoscopy Upper GI Complex Diagn ostic Completed Medical Devices Description No Information Available Encounters Type Date Location Provider Dx Diagnosis Office Visit 07/27/2020 3:45p [facility] Ezekiel calderon NP D50.9 Iron deficiency anemia, unspecified R63.4 Abnormal weight loss Assessments Date Code Description Provider 09/02/2020 D12.2 Benign neoplasm of ascending col on Rafael Muller JR, MD 09/02/2020 D50.9 Iron deficiency anemia, unspecif ied Rafael Muller JR, MD 09/02/2020 K57.30 Diverticulosis of la rge intestine without perforation or abscess without bleeding Rafael Muller JR, MD 07/27/2020 D50.9 Iron deficiency anemia, unspecif ied Ezekiel Del Angel NP 07/27/2020 R63.4 Abnormal weight loss Ezekiel kessler NP Plan of Treatment Future Appointment(s):* 10/26/2020 1:15 pm - Chad Smith MD at [facility] 07/27/2020 - Ezekiel Del Angel NP* D50.9 Iron deficiency anemia, unspecified* Comments:* Recommendation is to proceed with EGD and colonoscopy. Risks and benefits include, but are not limited to, bleeding, infection, and perforation. He understands the risks, and elects to proceed with procedure. * R63.4 Abnormal weight loss* Comments:* Book for EGD and Colonoscopy.Risks and complications were reviewed with patient.Informed consent was obtained. Functional Status Description No Information Available Mental Status Description No Information Available Referrals Refer to Reason for Referral Status Appt Date Rafael Muller JR, MD IRON DEFICIENCY ANEMIA Scheduled 1 09/26/[address] [place] [address] [address] [place] [address] [phone] Chad Smith MD anemia Created 10/26/2020 [facility], Gastroenterology [address] [place] [address], [address] [place] [address] [phone]
--- OUTSIDE RECORDS SUMMARY | 2020-10-14 06:47 | CCD | Continuity of Care Document ---
Author Author Jamarcus OLSON RPA Organization Unknown Address [address] [facility] [address] [place] [address] Phone [phone] Problems Active Problems Provider Date Type 2 [...] meals (change 03/15/20) 180tabs Jace Brizuela D.O., [facility] 02/06/2019 Glipizide ER 5mg Tablets ER 24HR take one tablet by mouth every day 90tabs E11.9 Jace Brizuela D.O., [facility] 01/16/2019 Lancets 28G Misc use to test blood sugars one time daily dx: e11.9 100units E11.9 Jace Brizuela D.O., [facility] 11/23/2017 Blood Glucose Monitoring System W/Device Kit use once a day and as needed as directed 1units E11.9 Jace Brizuela D.O., [facility] 11/23/2017 Blood Glucose Test Strips use once a day and as needed (dx: e11.9) 100units E11.9 Jace Brizuela D.O., [facility] 11/23/2017 Lisinopril 20mg Tablets Take One Tablet By Mouth Every Day 90tabs Jaden العراقي M.D. 06/25/20 17 Asa 81mg take one tablet sadaf ly. Unknown Coumadin 5mg 1 po on M,W,F 1/2 tab on Sun, T, TH, Sat (target 2.5-3.5 Inr) [facility] Cardiology Simvastatin 40mg Tablets 1 by [...] Code Status Date Vaccine Reaction Lot # 85054 Given 06/15/2020 Influenza Virus Vaccine, Quadrivalent, Slit Virus, Im Use 3Y & Up [id number] 48184 Given 06/25/2017 Influenza Virus Vaccine, Quadrivalent, Slit Virus, Im Use 3Y & Up [id number] 04642 Given 06/20/2016 Influenza Virus Vaccine, Quadrivalent, Slit Virus, Im Use 3Y & Up [id number] 13632 Given 06/16/2015 Influenza Vaccin e (Fluzone) 3Yrs Of Age Or Older Medicare Plans [id number] 45005 Given 06/10/2014 Pneumococcal Immunization [id number] 76336 Given 06/10/2014 Influenza Virus Vac. Split Virus Individuals 3 Years And Above [id number] 15030 Given 08/12/2012 Influenza Vaccin e (Fluzone) 3Yrs Of Age Or Older Medicare Plans 23850 Given 08/12/2012 Influenza Virus Vac. Split Virus Individuals 3 Years And Above [id number] 77097 Given 07/18/2011 Influenza Virus Vac. Split Virus Individuals 3 Years And Above 26359 Given 05/31/2009 Influenza Virus Vac. Split Virus Individuals 3 Years And Above [id number] 45031 Given 08/05/2007 Influenza Virus Vac. Split Virus Individuals 3 Years And Above [id number] Refused 07/16/2018 Influenza Virus Vaccine, Quadrivalent, Slit Virus, Im Use 3Y & Up Done 07/08/18 at [facility]. Vital Signs Date Vital Result Comment 09/16/2020 8:39am BP Systolic 116 mmHg BP Diastolic 70 mmHg Body Temperature 97.6 F Heart Rate 87 /min Respiratory Rate 16 /min Height 68 inches 5'8" Weight 178.00 lb [place] Body Weight 154 lb BMI (Body Mass Index) 27.1 kg/m2 O2 % BldC Oximetry 97 % 06/15/2020 9:18am BP Systolic 126 mmHg BP Diastolic 76 mmHg Body Temperature 97.6 F Heart Rate 53 /min Respiratory Rate 16 /min Height 68 inches 5'8" Weight 185.00 lb [place] Body Weight 154 lb BMI (Body Mass [...] Juan Daniel ECLIA methodology. According to the [place] [employer], Serum PSA should decrease and [...] <7.0 Procedures Date Code Description Status 06/15/2020 62064 Injection (SC)/(Im) Completed Medical Devices Description No Information Available Encounters Type Date Location Provider Dx Diagnosis Office Visit 09/16/2020 8:45a [facility] Chriss Olson, RP A E11.9 Type [...] of colonic polyps Office Visit 06/15/2020 8:45a [facility] Chriss Olson, RP A E11.9 Type [...] RPA 09/16/2020 I25.10 Atherosclerotic heart disease of [place] coronary artery with Chriss Olson, RPA 09/16/2020 G40.909 Epilepsy, unspecified, not intra ctable, without status epile Chriss Olson, [facility] 09/16/2020 D69.6 Thrombocytopenia, unspecified Hi Chriss nixon, RPA 09/16/2020 Z86.010 Personal history of colonic poly ps Chriss Olson, [facility] 06/15/2020 E11.9 Type 2 diabetes mellitus without complications Chriss Olson, [facility] 06/15/2020 I10 Essential (primary) hypertension Chriss Olson, [facility] 06/15/2020 E78.5 Hyperlipidemia, unspecified Chriss Abarca, [facility] 06/15/2020 R80.9 Proteinuria, unspecified Chriss Olson, [facility] 06/15/2020 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 Chriss Olson, [facility] 06/15/2020 Z95.0 Presence of cardiac pacemaker Chriss Stanley, [facility] 06/15/2020 Z95.2 Presence of prosthetic heart marie ve Chriss Olson, [facility] 06/15/2020 R01.1 Cardiac murmur, unspecified Chriss Abarca, [facility] 06/15/2020 I25.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
[2020-10-14] MEDS ORDERED: propofoL 200 MG/20 ML VIAL As Ordered ONE ×3 (07:12→09:04)
[2020-10-14] MEDS ORDERED: LIDOCAINE 2% 100MG/5ML SDV (FOR ANES.) As Ordered ONE (07:18)
--- NOTE | 2020-10-14 09:39 | ROOR ---
Patient Name: Jamarcus Olvera Procedure Date: 10/14/2020 7:29 AM Date of : 1945 Age: 75 Room: [facility] Gender: Male Note Status: Finalized Procedure: Colonoscopy Indications: Therapeutic procedure for known colon polyp Providers: Yemi Gaines MD Referring MD: CESAR GARZA Requesting Provider: Medicines: Monitored Anesthesia Care Complications: No immediate complications. Procedure: Pre-Anesthesia Assessment: - Prior to the procedure, a History and Physical was performed, and patient medications and allergies were reviewed. The patient is competent. The risks and benefits of the procedure and the sedation options and risks were discussed with the patient. All questions were answered and informed consent was obtained. Patient identification and proposed procedure were verified by the physician, the nurse and the anesthesiologist in the procedure room. Mental Status Examination: normal. Airway Examination: normal oropharyngeal airway and neck mobility. Respiratory Examination: clear to auscultation. CV Examination: normal. Prophylactic Antibiotics: The patient does not require prophylactic antibiotics. Prior Anticoagulants: The patient has taken Coumadin (warfarin), last dose was 7 days prior to procedure. ASA Grade Assessment: III - A patient with severe systemic disease. After reviewing the risks and benefits, the patient was deemed in satisfactory condition to undergo the procedure. The anesthesia plan was to use monitored anesthesia care (MAC). Immediately prior to administration of medications, the patient was re-assessed for adequacy to receive sedatives. The heart rate, respiratory rate, oxygen saturations, blood pressure, adequacy of pulmonary ventilation, and response to care were monitored throughout the procedure. The physical status of the patient was re-assessed after the procedure. The Colonoscope was introduced through the anus and advanced to the terminal ileum, with identification of the appendiceal orifice and IC valve. The colonoscopy was performed without difficulty. The patient tolerated the procedure well. Findings: The perianal and digital rectal examinations were normal. The terminal ileum appeared normal. A 40 mm polyp was found in the ascending colon. The polyp was carpet-like, flat and multi-lobulated. Preparations were made for mucosal resection. Chromoscopy with methylene blue was done to teresita the borders of the lesion. 5 mL of Eleview was injected with partial lift of the lesion from the muscularis propria. Forceps and snare mucosal resection with suction (via the working channel) retrieval was performed. A 15 mm area was resected. Resection was incomplete. The resected tissue was retrieved. There was no bleeding during and at the end of the procedure. A few medium-mouthed diverticula were found in the sigmoid colon. There was no evidence of diverticular bleeding. Non-bleeding external and internal hemorrhoids were found during retroflexion. The hemorrhoids were medium-sized. Impression: - The examined portion of the ileum was normal. - One 40 mm polyp in the ascending colon, removed with mucosal resection. Incomplete resection. Resected tissue retrieved. - Moderate diverticulosis in the sigmoid colon. There was no evidence of diverticular bleeding. - Non-bleeding external and internal hemorrhoids. - Mucosal resection was performed. Resection was incomplete. The resected tissue was retrieved. Recommendation: - Patient has a contact number available for emergencies. The signs and symptoms of potential delayed complications were discussed with the patient. Return to normal activities tomorrow. Written discharge instructions were provided to the patient. - Clear liquid diet for 1 day, then advance as tolerated to low residue diet. - Continue present medications. - Resume Coumadin (warfarin) at prior dose today. Refer to primary physician for further adjustment of therapy. - Await pathology results. - Perform CT scan (computed tomography) of the abdomen with contrast at appointment to be scheduled. - Repeat colonoscopy in 6 weeks for retreatment. - Telephone GI clinic for pathology results in 2 weeks. - Return to primary care physician. Procedure Code(s): --- Professional --- 49918, Colonoscopy, flexible; with endoscopic mucosal resection Diagnosis Code(s): --- Professional --- K64.8, Other hemorrhoids K63.5, Polyp of colon K57.30, Diverticulosis of large intestine without perforation or abscess without bleeding CPT copyright 2019 [employer]. All rights reserved. The codes documented in this report are preliminary and upon emergency room physician review may be revised to meet current compliance requirements. Yemi Gaines MD Yemi Gaines MD 10/14/2020 9:38:59 AM Electronically signed by Yemi Gaines MD Number of Addenda: 0 Note Initiated On: 10/14/2020 7:29 AM Estimated Blood Loss: Estimated blood loss was minimal.
[2020-10-14 09:45] VITALS: BP 127/60
== END 2020-10-14 09:55 | disposition home or self-care (01) ==
LOC: M OPP 06:41
PROVIDERS: ATTEND Internal Medicine Gastroenterology
DX: K63.5 Polyp of colon (principal); K57.30 Diverticulosis of large intestine without perforation or abscess without bleeding; K64.8 Other hemorrhoids; I48.91 Unspecified atrial fibrillation; I25.10 Atherosclerotic heart disease of native coronary artery without angina pectoris; I10 Essential (primary) hypertension; E78.5 Hyperlipidemia, unspecified; E11.9 Type 2 diabetes mellitus without complications; D50.9 Iron deficiency anemia, unspecified; M19.90 Unspecified osteoarthritis, unspecified site; F03.90 Unspecified dementia, unspecified severity, without behavioral disturbance, psychotic disturbance, mood disturbance, and anxiety; Z86.73 Personal history of transient ischemic attack (TIA), and cerebral infarction without residual deficits; Z95.0 Presence of cardiac pacemaker; Z95.1 Presence of aortocoronary bypass graft; Z79.01 Long term (current) use of anticoagulants; Z79.84 Long term (current) use of oral hypoglycemic drugs; Z79.899 Other long term (current) drug therapy; Z85.828 Personal history of other malignant neoplasm of skin; Z80.8 Family history of malignant neoplasm of other organs or systems

== ENCOUNTER → 2020-10-19 | Outpatient (CLI) | payer MEDICARE ==
[~2020-10-19] MED LIST changes: -ELEVIEW SUBMUCOSAL INJ 10ML AMP As Ordered ONE; -LISI-538 PO; +LISI20TA33 PO; -NS 1,000 ML IV ONE
[2020-10-19 10:16] LABS: BLOOD UREA NITROGEN 24 MG/DL (7-18); CREATININE FOR GFR 1.06 MG/DL (0.70-1.30); GLOMERULAR FILTRATION RATE > 60.0 (>42)
== END ==
LOC: M LAB 09:21
PROVIDERS: ATTEND Internal Medicine Gastroenterology
DX: D01.0 Carcinoma in situ of colon (principal)

== ENCOUNTER → 2020-10-20 | Outpatient (CLI) | payer MEDICARE ==
[~2020-10-20] MED LIST changes: +GASTROGRAFIN SOLUTION 30ML (Q9963) As Ordered ONE; +ISOVUE-370 76% 100ML VIAL As Ordered ONE
--- NOTE | 2020-10-20 18:17 | REP ---
INDICATION: CARCINOMA IN SITU COLON. COMPARISON: 05/20/2019 TECHNIQUE: Axial contrast-enhanced images from the lung bases to the pubic symphysis using oral and 100 cc Isovue 370 intravenous contrast material. Delayed images of the abdomen along with coronal and sagittal reformations obtained. This CT examination was performed using the following dose reduction techniques: Automated exposure control, adjustment of mA and/or kv according to the patient's size, and the use of iterative reconstruction technique. FINDINGS: Liver, spleen, pancreas, gallbladder, bilateral adrenal glands and kidneys are normal/stable. The enteric system is without obstruction or acute inflammatory process. Normal terminal ileum and appendix are identified in the right lower quadrant. Colonic and sigmoid diverticulosis noted without acute diverticulitis. There is some element of fullness involving the distal sigmoid colon which is nonspecific but may be related to the given history of colon cancer in situ period no perienteric inflammatory stranding or obvious adenopathy noted.. Pelvis demonstrates normal bladder and chronic prostatomegaly as well as small fat containing right inguinal hernia. No ascites. No free air. No intraperitoneal or retroperitoneal adenopathy. Abdominal aorta and vasculature appear normal. Musculoskeletal structures are intact and without acute osseous abnormality. Lung bases demonstrate chronic changes including scattered calcified granulomata. IMPRESSION: 1. Colonic diverticula without acute diverticulitis. 2. Fullness involving the distal sigmoid colon is nonspecific and while this may reflect focal area of transient peristalsis, mass and malignancy given the patient's history cannot be excluded. 3. Chronic prostatomegaly 4. No further acute abdominopelvic pathology appreciated. <Electronically signed by Schuyler Dunham > 10/20/20 [id number]
== END ==
LOC: M RAD 15:54
PROVIDERS: ATTEND Internal Medicine Gastroenterology
DX: D01.0 Carcinoma in situ of colon (principal)
CPT/HCPCS: 74177; Q9963; Q9967

== ENCOUNTER → 2020-11-18 | Outpatient (CLI) | payer MEDICARE ==
[~2020-11-18] MED LIST changes: -GASTROGRAFIN SOLUTION 30ML (Q9963) As Ordered ONE; -ISOVUE-370 76% 100ML VIAL As Ordered ONE
== END ==
LOC: M LABSMTC 10:26
PROVIDERS: ATTEND Anesthesiology
DX: Z01.812 Encounter for preprocedural laboratory examination (principal); Z20.822 Contact with and (suspected) exposure to COVID-19

== ENCOUNTER 2020-11-23 08:51 | Inpatient (IN) | payer MEDICARE ==
--- NOTE | 2020-11-22 12:14 | HPE ---
HISTORY AND PHYSICAL DATE: 11/22/2020 BRIEF HISTORY OF PRESENT ILLNESS: Patient is a 75-year-old male who underwent colonoscopy in August of 2020 and had a polyp which was in the right colon identified as tubular adenoma fragments that was removed/biopsied; had a follow up colonoscopy by Dr. Gaines who biopsied the area and found some high grade dysplasia. He returns today for right colectomy discussion. PAST MEDICAL AND SURGICAL HISTORY: Significant for: 1. History of hypertension. 2. Hypercholesterolemia. 3. Diabetes mellitus. 4. Skin cancer. 5. Atrial fibrillation. 6. Mitral valve prolapse. 7. Coronary artery disease. 8. Dyspnea. 9. CVA. 10. Aortic valve replacement/open heart surgery. 11. Pacemaker implant. 12. Coronary artery bypass grafting. PHYSICAL EXAMINATION: Exam reveals a 75-year-old male who looks stated age. HEENT: Unremarkable. Neck: Supple without adenopathy. Lungs: Clear to auscultation without crackles, wheezes, rhonchi. Heart: Regular without murmur. Abdomen: Soft, nontender, nondistended. 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 The plan is for a laparoscopic right colectomy. The risks as well as benefits have been discussed with the patient at length those including, but not limited to infection, bleeding, damage to surrounding structures including bowel, ureter, kidney, duodenum, pancreas, liver, etc., and possible need for open operative intervention. Patient understands there is also a possibility although unlikely of needing an ostomy and also risk of anastomotic leak. Patient understands risks and would like to proceed with operative intervention, understands he will need a mechanical as well as antibiotic bowel prep, will need post-operative hospitalization typically 3-5 days, will be given Tirso sequentials at the time of the operative intervention, Johnson catheter placement and placed n.p.o.
[2020-11-23] VITALS (7 sets, daily range): BP systolic 104–118; BP diastolic 47–52
[~2020-11-23] VITALS: Ht 172.7 cm; Wt 81.2 kg
[~2020-11-23 08:51] MED LIST changes: +LIDOCAINE 1% MDV 20ML VIAL SQ PRN; +LR 1,000 ML IV ONE; +ceFAZolin SOD 2 GM in IV 1 EA IV ONE
[2020-11-23 09:37] LABS: HEMATOCRIT 41.6 % (42.0-52.0); HEMOGLOBIN 14.4 g/dl (13.5-17.5); MEAN CORPUSCULAR HEMOGLOBIN 33.6 pg (27.0-33.0); MEAN CORPUSCULAR HGB CONC 34.6 g/dl (32.0-36.5); MEAN CORPUSCULAR VOLUME 97.2 fl (80.0-96.0); PLATELET COUNT, AUTOMATED 206 10^3/uL (150-450); RED BLOOD COUNT 4.28 10^6/uL (4.30-6.10); WHITE BLOOD COUNT 12.8 10^3/uL (4.0-10.0)
[2020-11-23 09:58] LABS: CALCIUM LEVEL 9.3 MG/DL (8.8-10.2); CREATININE FOR GFR 1.47 MG/DL (0.70-1.30); GLOMERULAR FILTRATION RATE 49.7 (>42); POTASSIUM SERUM 4.3 MEQ/L (3.5-5.1)
[2020-11-23 10:39] LABS: INR 1.1; PROTHROMBIN TIME 14.4 SECONDS (12.5-14.3)
[2020-11-23 10:40] LABS: PARTIAL THROMBOPLASTIN TIME 29.1 SECONDS (24.2-38.5)
[2020-11-23] MEDS ORDERED: BUPIVACAINE/EPIN 0.25% 30 ML VIAL As Ordered ONE (12:41)
[2020-11-23] MEDS ORDERED: BUPIVACAINE LIPOSOME/PF 1.3% 20ML VIAL (13.3MG/ML)(EXPAREL)(C9290 PER1MG) As Ordered ONE (12:42)
[2020-11-23] MEDS ORDERED: GLUCAGON INJ 1MG VIAL As Ordered ONE (12:42)
[2020-11-23] MEDS ORDERED: fentaNYL 100 MCG/2 ML INJECTION (J3010) As Ordered ONE ×2 (12:42→13:45)
[2020-11-23] MEDS ORDERED: BUPIVACAINE HCL 0.25% 10ML VIAL As Ordered ONE (12:42)
[2020-11-23] MEDS ORDERED: LIDOCAINE 2% 100MG/5ML SDV (FOR ANES.) As Ordered ONE (12:43)
[2020-11-23] MEDS ORDERED: MIDAZOLAM INJ 2MG/2ML VIAL (J2250 PER 1MG) As Ordered ONE (12:43)
[2020-11-23] MEDS ORDERED: ROCURONIUM BROMIDE 50 MG/5 ML VIAL As Ordered ONE ×2 (12:43→13:44)
[2020-11-23] MEDS ORDERED: propofoL 200 MG/20 ML VIAL As Ordered ONE (12:43)
[2020-11-23] MEDS ORDERED: METOCLOPRAMIDE INJ 10MG/2ML VIAL (J2765 PER 1) As Ordered ONE (13:27)
[2020-11-23] MEDS ORDERED: SUGAMMADEX SODIUM 500 MG/5 ML VIAL (BRIDION) As Ordered ONE (13:57)
[2020-11-23] MEDS ORDERED: ACETAMINOPHEN 1000MG 100ML IV BTL (OFIRMEV) (J0131 PER 10MG) As Ordered ONE (13:57)
[2020-11-23] MEDS ORDERED: ONDANSETRON 4MG/2ML VIAL As Ordered ONE (13:57)
[2020-11-23] MEDS ORDERED: NORCO, ANEXSIA 5/325MG TABLET (HYDROcodone/ACETAMINOPHEN) PO PRN ×2 (15:20)
[2020-11-23] MEDS ORDERED: ONDANSETRON 4MG/2ML VIAL IV PRN ×2 (15:20→16:00)
[2020-11-23] MEDS ORDERED: MORPHINE 2 MG/ML 1ML VIAL (J2270) IV PRN (15:20)
[2020-11-23] MEDS ORDERED: IPRATROPIUM 0.5MG/ALBUTEROL 2.5MG INH SOL UD 3ML (DUONEB) NEB PRN (15:20)
[2020-11-23] MEDS ORDERED: GLUCOSE 4GM CHEW TABLET PO PRN (15:25)
[2020-11-23] MEDS ORDERED: GLUCAGON INJ 1MG VIAL SC PRN (15:25)
[2020-11-23] MEDS ORDERED: DEXTROSE 50% 50 ML SYRINGE IV PRN (15:25)
[2020-11-23] MEDS ORDERED: fentaNYL 100 MCG/2 ML INJECTION (J3010) IV PRN (16:00)
[2020-11-23] MEDS ORDERED: oxyCODONE 5MG TAB PO PRN (16:00)
[2020-11-23] MEDS ORDERED: LR 1,000 ML IV SCH (16:00)
[2020-11-23] MEDS ORDERED: HYDROMORPHONE HCL 0.5 MG/ 0.5 ML SYRINGE (J1170 PER 1) IV PRN (16:00)
[2020-11-23] MEDS: NS 1,000 ML IV SCH (17:22)
[2020-11-23] MEDS: metroNIDAZOLE 500 MG in IV 1 EA IV SCH ×2 (17:22→23:25)
[2020-11-23] MEDS: HumaLOG INSULIN (NovoLOG) PER UNIT SC SCH (17:23)
[2020-11-23] MEDS: IPRATROPIUM 0.5MG/ALBUTEROL 2.5MG INH SOL UD 3ML (DUONEB) NEB SCH (19:46)
[2020-11-23] MEDS: SIMVASTATIN 40 MG TAB PO SCH (20:06)
[2020-11-23] MEDS: METOPROLOL TART 25 MG TABLET PO SCH (20:06)
[2020-11-23] MEDS: ceFAZolin SOD 1 GM in D5W MINI-BAG PLUS 50 ML IV SCH (20:07)
[2020-11-23] MEDS: MORPHINE 2 MG/ML 1ML VIAL (J2270) IV PRN (22:02)
[2020-11-24] MEDS: HumaLOG INSULIN (NovoLOG) PER UNIT SC SCH ×4 (00:13→17:52)
[2020-11-24] MEDS: IPRATROPIUM 0.5MG/ALBUTEROL 2.5MG INH SOL UD 3ML (DUONEB) NEB SCH ×5 (01:23→23:56)
[2020-11-24 02:00] VITALS: BP 104/59
[2020-11-24] MEDS: NS 1,000 ML IV SCH ×4 (04:38→21:50)
[2020-11-24] MEDS: ceFAZolin SOD 1 GM in D5W MINI-BAG PLUS 50 ML IV SCH ×2 (04:38→13:35)
[2020-11-24] MEDS: MORPHINE 2 MG/ML 1ML VIAL (J2270) IV PRN (04:42)
[2020-11-24 06:00] VITALS: BP 111/59
[2020-11-24 06:18] LABS: HEMATOCRIT 28.9 % (42.0-52.0); MEAN CORPUSCULAR HEMOGLOBIN 33.8 pg (27.0-33.0); MEAN CORPUSCULAR HGB CONC 35.3 g/dl (32.0-36.5); MEAN CORPUSCULAR VOLUME 95.7 fl (80.0-96.0); PLATELET COUNT, AUTOMATED 178 10^3/uL (150-450); RED BLOOD COUNT 3.02 10^6/uL (4.30-6.10); WHITE BLOOD COUNT 14.4 10^3/uL (4.0-10.0)
[2020-11-24 06:24] LABS: HEMOGLOBIN 10.2 g/dl (13.5-17.5)
[2020-11-24 06:44] LABS: CALCIUM LEVEL 8.3 MG/DL (8.8-10.2); CREATININE FOR GFR 1.55 MG/DL (0.70-1.30); GLOMERULAR FILTRATION RATE 46.8 (>42); POTASSIUM SERUM 4.7 MEQ/L (3.5-5.1)
[2020-11-24] MEDS: metroNIDAZOLE 500 MG in IV 1 EA IV SCH (08:37)
[2020-11-24] MEDS: levETIRAcetam 250MG TABLET (KEPPRA) PO SCH (08:38)
[2020-11-24] MEDS: METOPROLOL TART 25 MG TABLET PO SCH ×2 (08:43→21:49)
[2020-11-24] MEDS: PANTOPRAZOLE 40MG VIAL (C9113 PER 1) IV SCH (08:43)
[2020-11-24] MEDS: ALVIMOPAN 12 MG CAPSULE (ENTEREG) PO SCH ×2 (08:49→21:48)
[2020-11-24 10:00] VITALS: BP 137/64
[2020-11-24 14:00] VITALS: BP 94/71
--- NOTE | 2020-11-24 14:51 | IPNPDOC ---
Text Note Date of Service The patient was seen on 11/24/20. NOTE General Surgery Dr Muller. The pt is a 75-year-old male who underwent colonoscopy in August of 2020 and had a polyp which was in the right colon identified as tubular adenoma fragments that was removed/biopsied, had a follow up colonoscopy by Dr. Gaines who biopsied the area and found some high grade dysplasia, now S/P right colectomy as per Dr Muller 11/23/20. The patient reports pain is controlled. Eager for some liquids. Denies nausea or vomiting. Denies flatus or bowel movement yet. Afebrile. Blood pressure 135/65, heart rate 95, 100% 2 L. General. The patient is awake and alert resting in bed comfortably, no acute distress. Lungs with some intertrigo rales at the bases S1-S2 regular rate and rhythm Abdomen soft, still some distention, NT, with dressings clean dry and intact. Extremities well perfused, no edema. I/O 1005/500, 505 WBC 14.4 which is increased compared with 11/23 Hgb10.2 which is decreased compared with admission, 14.4. Assessment/plan S/P Rt Colectomy. The patient is afebrile, no signs of infection, dressings clean/dry/intact. Plan to discontinue IV antibiotics. Hemoglobin is noted to be 10.2, which is decreased from 14. Monitor a.m. labs. Reviewed his previous labs in the system which indicates his previous baseline was 10. Trial of sips of clear liquids. IVF NS 125 Johnson, will consider removing later today if able to get OOB. Entereg added. Encourage ambulation The patient is noted to have some rales at the bases, Encourage incentive spirometry. DVT px SCD/TEDS Hypertension Lisinopril/metoprolol DM. SSI. Dyslipidemia Zocor VS,Fishbone, I+O VS, Fishbone, I+O Laboratory Tests 11/24/20 05:43 Vital Signs Date Time Temp Pulse Resp B/P (MAP) Pulse Ox O2 Delivery O2 Flow Rate FiO2 11/24/20 14:00 97.5 85 16 94/71 (79) 100 Room Air 11/24/20 10:00 2.0 I&O- Last 24 Hours up to 6 AM 11/24/20 06:00 Intake Total 2655 ml Output Total 500 ml Balance 2155 ml Carolina Naidu Nov 24, 2020 14:51
[2020-11-24 18:00] VITALS: BP 109/59
[2020-11-24] MEDS: SIMVASTATIN 40 MG TAB PO SCH (21:48)
[2020-11-24 22:00] VITALS: BP 107/50
[2020-11-25] VITALS (12 sets, daily range): BP systolic 85–124; BP diastolic 47–64
[2020-11-25] MEDS: HumaLOG INSULIN (NovoLOG) PER UNIT SC SCH ×4 (00:23→17:51)
[2020-11-25 06:24] LABS: HEMATOCRIT 21.5 % (42.0-52.0); MEAN CORPUSCULAR HEMOGLOBIN 34.8 pg (27.0-33.0); MEAN CORPUSCULAR HGB CONC 35.8 g/dl (32.0-36.5); MEAN CORPUSCULAR VOLUME 97.3 fl (80.0-96.0); PLATELET COUNT, AUTOMATED 130 10^3/uL (150-450); RED BLOOD COUNT 2.21 10^6/uL (4.30-6.10); WHITE BLOOD COUNT 16.7 10^3/uL (4.0-10.0)
[2020-11-25 06:29] LABS: HEMOGLOBIN 7.7 g/dl (13.5-17.5)
[2020-11-25 06:52] LABS: BLOOD UREA NITROGEN 34 MG/DL (7-18); CALCIUM LEVEL 8.3 MG/DL (8.8-10.2); CARBON DIOXIDE LEVEL 25 MEQ/L (21-32); CHLORIDE LEVEL 106 MEQ/L (98-107); CREATININE FOR GFR 1.13 MG/DL (0.70-1.30); GLOMERULAR FILTRATION RATE > 60.0 (>42); GLUCOSE, FASTING 90 MG/DL (70-100); SODIUM LEVEL 137 MEQ/L (136-145)
[2020-11-25] MEDS: IPRATROPIUM 0.5MG/ALBUTEROL 2.5MG INH SOL UD 3ML (DUONEB) NEB SCH ×3 (07:19→20:26)
[2020-11-25] MEDS: NS 1,000 ML IV SCH (07:38)
[2020-11-25] MEDS ORDERED: FUROSEMIDE 20MG/2ML VIAL (J1940) IV ONE (08:45)
[2020-11-25] MEDS: levETIRAcetam 250MG TABLET (KEPPRA) PO SCH (09:17)
[2020-11-25] MEDS: ALVIMOPAN 12 MG CAPSULE (ENTEREG) PO SCH ×2 (09:17→21:42)
[2020-11-25] MEDS: PANTOPRAZOLE 40MG VIAL (C9113 PER 1) IV SCH (09:18)
[2020-11-25] MEDS: FUROSEMIDE 40 MG TAB PO SCH (09:18)
[2020-11-25] MEDS: METOPROLOL TART 25 MG TABLET PO SCH ×2 (09:20→21:45)
[2020-11-25 11:58] LABS: HEMATOCRIT 21.8 % (42.0-52.0); HEMOGLOBIN 7.6 g/dl (13.5-17.5)
--- NOTE | 2020-11-25 14:22 | IPNPDOC ---
Text Note Date of Service The patient was seen on 11/25/20. NOTE General Surgery Dr Muller. The pt is a 75-year-old male who underwent colonoscopy in August of 2020 and had a polyp which was in the right colon identified as tubular adenoma fragments that was removed/biopsied, had a follow up colonoscopy by Dr. Gaines who biopsied the area and found some high grade dysplasia, now S/P right colectomy as per Dr Muller 11/23/20. The patient reports pain is controlled. Denies nausea or vomiting. Reports flatus and a few small amounts of stool, brown. Has been out of bed ambulating. Afebrile. Blood pressure 107/50, heart rate 80, 100% 2 L. General. The patient is awake and alert resting in bed comfortably, no acute distress. Lungs with some few rales at the bases S1-S2 regular rate and rhythm Abdomen soft, less distended today, NT, with dressings clean dry and intact. Extremities well perfused, no edema. I/O 4105/700 3405 WBC 16.7 which is uptrending Hgb 7.7 which is decreased from yesterday Assessment/plan S/P Rt Colectomy. The patient is reviewed and examined as per Dr. Muller this morning. The patient is noted to have elevated WBC, but the patient is afebrile, no signs of infection noted on exam, dressings clean/dry/intact. Johnson catheter appears to have clear yellow urine, will plan to discontinue Johnosn and send UA with reflex culture. Hemoglobin is noted to be 7.7, this is noted to be decreased from 10.2 yesterday. Possibly dilutional, the patient is noted to be +3400 yesterday. We will recheck H/H at noon today and consider transfusion if needed. Reviewed his previous labs in the system from 2019 which indicates his previous baseline was 10. Continue clear liquids Continue IV fluids today. Entereg. Encourage ambulation Continue incentive spirometry. DVT px SCD/TEDS ADDENDUM: Blood pressure at 10 AM was noted to be 85/48. Hemoglobin at noon was noted to be 7.6 Plan for transfusion 2 units PRBCs this afternoon. Continue to closely monitor. Hypertension Lisinopril/metoprolol PAF/AVR Coumadin on hold. Unable to restart AC at this time. 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 CAD/CABG Metoprolol/statin DM. SSI. Glipizide on hold. Seizure disorder. Keppra. Dyslipidemia Zocor VS,Fishbone, I+O VS, Fishbone, I+O Laboratory Tests 11/25/20 05:56 11/25/20 11:46 Vital Signs Date Time Temp Pulse Resp B/P (MAP) Pulse Ox O2 Delivery O2 Flow Rate FiO2 11/25/20 10:00 97.0 88 16 85/48 (60) 97 Room Air 11/25/20 06:00 2.0 I&O- Last 24 Hours up to 6 AM 11/25/20 05:59 Intake Total 3955 ml Output Total 700 ml Balance 3255 ml Carolina Naidu Nov 25, 2020 12:28
[2020-11-25] MEDS: SIMVASTATIN 40 MG TAB PO SCH (21:42)
[2020-11-26] MEDS: HumaLOG INSULIN (NovoLOG) PER UNIT SC SCH ×4 (01:16→18:07)
[2020-11-26 02:00] VITALS: BP 130/64
[2020-11-26] MEDS: IPRATROPIUM 0.5MG/ALBUTEROL 2.5MG INH SOL UD 3ML (DUONEB) NEB SCH ×4 (02:00→20:51)
[2020-11-26 06:00] VITALS: BP 130/64
[2020-11-26 06:32] LABS: HEMATOCRIT 26.3 % (42.0-52.0); HEMOGLOBIN 9.4 g/dl (13.5-17.5); MEAN CORPUSCULAR HEMOGLOBIN 32.8 pg (27.0-33.0); MEAN CORPUSCULAR HGB CONC 35.7 g/dl (32.0-36.5); MEAN CORPUSCULAR VOLUME 91.6 fl (80.0-96.0); PLATELET COUNT, AUTOMATED 106 10^3/uL (150-450); RED BLOOD COUNT 2.87 10^6/uL (4.30-6.10); WHITE BLOOD COUNT 11.2 10^3/uL (4.0-10.0)
[2020-11-26 06:56] LABS: BLOOD UREA NITROGEN 18 MG/DL (7-18); CALCIUM LEVEL 8.4 MG/DL (8.8-10.2); CARBON DIOXIDE LEVEL 25 MEQ/L (21-32); CHLORIDE LEVEL 105 MEQ/L (98-107); CREATININE FOR GFR 0.84 MG/DL (0.70-1.30); GLOMERULAR FILTRATION RATE > 60.0 (>42); GLUCOSE, FASTING 128 MG/DL (70-100); POTASSIUM SERUM 4.1 MEQ/L (3.5-5.1); SODIUM LEVEL 136 MEQ/L (136-145)
[2020-11-26] MEDS: PANTOPRAZOLE 40MG VIAL (C9113 PER 1) IV SCH (08:47)
[2020-11-26] MEDS: DOCUSATE SODIUM 100MG CAPSULE PO SCH ×2 (08:49→20:24)
[2020-11-26] MEDS: ALVIMOPAN 12 MG CAPSULE (ENTEREG) PO SCH ×2 (08:49→20:24)
[2020-11-26] MEDS: FUROSEMIDE 40 MG TAB PO SCH (08:49)
[2020-11-26] MEDS: levETIRAcetam 250MG TABLET (KEPPRA) PO SCH (08:49)
[2020-11-26] MEDS: METOPROLOL TART 25 MG TABLET PO SCH ×2 (08:51→20:25)
[2020-11-26 10:00] VITALS: BP 119/58
[2020-11-26 14:00] VITALS: BP 125/57
[2020-11-26] MEDS ORDERED: WARFARIN SOD 5MG TAB PO SCH (17:00)
[2020-11-26 18:00] VITALS: BP 137/63
[2020-11-26] MEDS: SIMVASTATIN 40 MG TAB PO SCH (20:25)
[2020-11-26 22:00] VITALS: BP 141/63
[2020-11-27] MEDS: HumaLOG INSULIN (NovoLOG) PER UNIT SC SCH ×4 (00:09→18:40)
[2020-11-27] MEDS: IPRATROPIUM 0.5MG/ALBUTEROL 2.5MG INH SOL UD 3ML (DUONEB) NEB SCH ×4 (02:32→20:00)
[2020-11-27 06:00] VITALS: BP 139/62
[2020-11-27 06:48] LABS: HEMATOCRIT 31.1 % (42.0-52.0); HEMOGLOBIN 10.9 g/dl (13.5-17.5); MEAN CORPUSCULAR HEMOGLOBIN 32.2 pg (27.0-33.0); PLATELET COUNT, AUTOMATED 129 10^3/uL (150-450); RED BLOOD COUNT 3.38 10^6/uL (4.30-6.10); WHITE BLOOD COUNT 13.4 10^3/uL (4.0-10.0)
[2020-11-27 07:00] LABS: BLOOD UREA NITROGEN 19 MG/DL (7-18); CALCIUM LEVEL 8.6 MG/DL (8.8-10.2); CARBON DIOXIDE LEVEL 27 MEQ/L (21-32); CHLORIDE LEVEL 104 MEQ/L (98-107); CREATININE FOR GFR 0.92 MG/DL (0.70-1.30); GLOMERULAR FILTRATION RATE > 60.0 (>42); GLUCOSE, FASTING 181 MG/DL (70-100); POTASSIUM SERUM 3.8 MEQ/L (3.5-5.1); SODIUM LEVEL 138 MEQ/L (136-145)
[2020-11-27] MEDS: levETIRAcetam 250MG TABLET (KEPPRA) PO SCH (08:46)
[2020-11-27] MEDS: PANTOPRAZOLE 40MG VIAL (C9113 PER 1) IV SCH (08:46)
[2020-11-27] MEDS: DOCUSATE SODIUM 100MG CAPSULE PO SCH ×2 (08:46→20:33)
[2020-11-27] MEDS: FUROSEMIDE 40 MG TAB PO SCH (08:47)
[2020-11-27] MEDS: ALVIMOPAN 12 MG CAPSULE (ENTEREG) PO SCH ×2 (08:47→20:32)
[2020-11-27] MEDS: METOPROLOL TART 25 MG TABLET PO SCH ×2 (08:48→20:33)
[2020-11-27] MEDS ORDERED: HEPARIN SOD (PORCINE) 5000UNITS/ML 1ML VIAL/SYRINGE IV PRN (09:30)
[2020-11-27] MEDS ORDERED: MORPHINE 4 MG/ML 1ML VIAL/SYRINGE (J2270) IV PRN (09:40)
[2020-11-27 10:00] VITALS: BP 104/52
[2020-11-27] MEDS ORDERED: BISACODYL 10 MG SUPP PR ONE (10:00)
[2020-11-27 10:24] LABS: HEMATOCRIT 33.9 % (42.0-52.0); HEMOGLOBIN 11.9 g/dl (13.5-17.5); MEAN CORPUSCULAR HEMOGLOBIN 32.4 pg (27.0-33.0); MEAN CORPUSCULAR HGB CONC 35.1 g/dl (32.0-36.5); MEAN CORPUSCULAR VOLUME 92.4 fl (80.0-96.0); PLATELET COUNT, AUTOMATED 146 10^3/uL (150-450); RED BLOOD COUNT 3.67 10^6/uL (4.30-6.10); WHITE BLOOD COUNT 15.7 10^3/uL (4.0-10.0)
[2020-11-27 10:30] VITALS: BP 130/70
[2020-11-27] MEDS: SIMETHICONE 80MG CHEW TAB PO SCH ×4 (10:58→20:32)
[2020-11-27] MEDS: HEPARIN DRIP 25,000 UNITS in IV 1 EA IV SCH (11:20)
[2020-11-27 14:00] VITALS: BP 128/62
[2020-11-27] MEDS: KCL 40MEQ in NS 1000ML 1,000 ML IV SCH (14:45)
--- NOTE | 2020-11-27 17:23 | REP ---
INDICATION: Confirm NG tube placement in stomach COMPARISON: 07/31/2019 TECHNIQUE: Portable AP view of the chest FINDINGS: Nasogastric tube extends below the left hemidiaphragm into the stomach. The mediastinum and cardiac silhouette are stable including evidence for prior sternotomy, CABG, pacemaker, and aortic valve repair. The lung sweeney demonstrate chronic appearing changes. Subtle left basilar atelectasis and small layering left effusion cannot be excluded. IMPRESSION: 1. Nasogastric tube in satisfactory position. 2. Subtle left basilar atelectasis and small left layering effusion cannot be excluded. <Electronically signed by Schuyler Dunham > 11/27/20 [id number]
[2020-11-27 20:28] VITALS: BP 126/62
[2020-11-27] MEDS: SIMVASTATIN 40 MG TAB PO SCH (20:33)
[2020-11-28] MEDS: HumaLOG INSULIN (NovoLOG) PER UNIT SC SCH ×4 (00:24→18:58)
[2020-11-28] MEDS: IPRATROPIUM 0.5MG/ALBUTEROL 2.5MG INH SOL UD 3ML (DUONEB) NEB SCH ×4 (01:37→20:14)
[2020-11-28 04:00] VITALS: BP 130/68
[2020-11-28] MEDS: KCL 40MEQ in NS 1000ML 1,000 ML IV SCH ×3 (04:35→18:55)
[2020-11-28 06:00] VITALS: BP 129/61
[2020-11-28] MEDS: HEPARIN DRIP 25,000 UNITS in IV 1 EA IV SCH (06:04)
[2020-11-28 06:42] LABS: HEMATOCRIT 34.3 % (42.0-52.0); HEMOGLOBIN 11.7 g/dl (13.5-17.5); MEAN CORPUSCULAR HEMOGLOBIN 32.2 pg (27.0-33.0); MEAN CORPUSCULAR HGB CONC 34.1 g/dl (32.0-36.5); MEAN CORPUSCULAR VOLUME 94.5 fl (80.0-96.0); PLATELET COUNT, AUTOMATED 170 10^3/uL (150-450); RED BLOOD COUNT 3.63 10^6/uL (4.30-6.10)
[2020-11-28 06:51] LABS: INR 1.35
[2020-11-28 07:16] LABS: BLOOD UREA NITROGEN 20 MG/DL (7-18); CALCIUM LEVEL 8.5 MG/DL (8.8-10.2); CARBON DIOXIDE LEVEL 22 MEQ/L (21-32); CHLORIDE LEVEL 107 MEQ/L (98-107); GLOMERULAR FILTRATION RATE > 60.0 (>42); GLUCOSE, FASTING 162 MG/DL (70-100); POTASSIUM SERUM 4.3 MEQ/L (3.5-5.1); SODIUM LEVEL 139 MEQ/L (136-145)
[2020-11-28 07:42] LABS: PARTIAL THROMBOPLASTIN TIME > 240.0 SECONDS (24.2-38.5)
[2020-11-28] MEDS: levETIRAcetam 250MG TABLET (KEPPRA) PO SCH (09:38)
[2020-11-28] MEDS: PANTOPRAZOLE 40MG VIAL (C9113 PER 1) IV SCH (09:38)
[2020-11-28] MEDS: SIMETHICONE 80MG CHEW TAB PO SCH ×4 (09:38→20:04)
[2020-11-28] MEDS: ALVIMOPAN 12 MG CAPSULE (ENTEREG) PO SCH ×2 (09:40→20:04)
[2020-11-28] MEDS: FUROSEMIDE 40 MG TAB PO SCH (09:40)
[2020-11-28] MEDS: DOCUSATE SODIUM 100MG CAPSULE PO SCH ×2 (09:40→20:04)
[2020-11-28] MEDS: METOPROLOL TART 25 MG TABLET PO SCH ×2 (09:41→20:07)
[2020-11-28 10:00] VITALS: BP 130/57
--- NOTE | 2020-11-28 12:58 | REP ---
INDICATION: ?ileus post op COMPARISON: None. TECHNIQUE: Upright view of the chest with supine and upright views of the abdomen and pelvis. FINDINGS: Upright view of the chest demonstrates nasogastric tube extending to the distal esophagus and requiring advancement. Bibasilar atelectasis and small pleural reactions are noted. No free air below diaphragm to suspect perforation. Supine and upright views of the abdomen and pelvis demonstrate dilated small bowel with air-fluid levels consistent with small bowel obstruction. Skeletal structures demonstrate age-related degenerative changes. Surgical suture material and brissa noted. IMPRESSION: Bowel gas pattern suspicious for small bowel obstruction. Nasogastric tube requires advancement. <Electronically signed by Schuyler Dunham > 11/28/20 [id number]
[2020-11-28] MEDS: metroNIDAZOLE 500 MG in IV 1 EA IV SCH ×2 (13:15→20:05)
[2020-11-28 14:00] VITALS: BP 133/57
[2020-11-28] MEDS: CIPROFLOXACIN 400 MG in IV 1 EA IV SCH (14:47)
--- NOTE | 2020-11-28 14:47 | IPN ---
PROGRESS NOTE DATE: 11/28/2020 SUBJECTIVE: Patient overall states that he is not in any significant pain, but feels distended. He feels a little less distended than he did yesterday and he has had a bowel movement yesterday, reportedly, and some minimal flatus this morning. He has had no nausea, no vomiting, no blood per rectum. He has been afebrile. On his physical examination, his abdomen is softly distended, but it is quite distended and tympanitic. However, his white count is still persistently elevated at 15,000. IMPRESSION/PLAN: At this point, his abdomen is soft, showing no evidence of peritonitis, but I do have concerns, given his ileus, that this is most likely secondary to intraabdominal bleeding that was initially noticed and transfused postoperatively and, most likely, secondary to his anticoagulation use. Given that this is most likely an ileus that should resolve, I do feel supportive care is reasonable at this time. However, I will get a followup KUB to document our progress over the ensuing few days depending on how he is doing clinically and, more importantly, given the fact that this was a colonic surgery, he definitely has an increased risk of having an infectious process present, and thus, I will start him on some Cipro/Flagyl at this time and if his white count does not drop tomorrow, despite being relatively asymptomatic from an infectious standpoint, we will get a followup CAT scan.
[2020-11-28 18:00] VITALS: BP 135/56
[2020-11-28] MEDS: SIMVASTATIN 40 MG TAB PO SCH (20:04)
[2020-11-28 22:00] VITALS: BP 136/56
[2020-11-29] MEDS: HumaLOG INSULIN (NovoLOG) PER UNIT SC SCH ×4 (00:49→18:00)
[2020-11-29] MEDS: CIPROFLOXACIN 400 MG in IV 1 EA IV SCH ×2 (00:49→13:17)
[2020-11-29] MEDS: IPRATROPIUM 0.5MG/ALBUTEROL 2.5MG INH SOL UD 3ML (DUONEB) NEB SCH ×4 (01:02→20:11)
[2020-11-29 01:47] LABS: PARTIAL THROMBOPLASTIN TIME 150.6 SECONDS (24.2-38.5)
[2020-11-29] MEDS: metroNIDAZOLE 500 MG in IV 1 EA IV SCH ×3 (04:47→19:56)
[2020-11-29 06:00] VITALS: BP 139/57
[2020-11-29 06:25] LABS: HEMATOCRIT 27.4 % (42.0-52.0); MEAN CORPUSCULAR HEMOGLOBIN 32.5 pg (27.0-33.0); MEAN CORPUSCULAR HGB CONC 33.6 g/dl (32.0-36.5); MEAN CORPUSCULAR VOLUME 96.8 fl (80.0-96.0); PLATELET COUNT, AUTOMATED 133 10^3/uL (150-450); RED BLOOD COUNT 2.83 10^6/uL (4.30-6.10); WHITE BLOOD COUNT 12.7 10^3/uL (4.0-10.0)
[2020-11-29 06:32] LABS: HEMOGLOBIN 9.2 g/dl (13.5-17.5)
[2020-11-29 06:34] LABS: INR 1.84; PROTHROMBIN TIME 21.7 SECONDS (12.5-14.3)
[2020-11-29] MEDS: HEPARIN DRIP 25,000 UNITS in IV 1 EA IV SCH (06:50)
[2020-11-29 06:59] LABS: BLOOD UREA NITROGEN 22 MG/DL (7-18); CALCIUM LEVEL 7.6 MG/DL (8.8-10.2); CARBON DIOXIDE LEVEL 22 MEQ/L (21-32); CHLORIDE LEVEL 111 MEQ/L (98-107); CREATININE FOR GFR 0.88 MG/DL (0.70-1.30); GLOMERULAR FILTRATION RATE > 60.0 (>42); GLUCOSE, FASTING 204 MG/DL (70-100); POTASSIUM SERUM 3.9 MEQ/L (3.5-5.1); SODIUM LEVEL 142 MEQ/L (136-145)
[2020-11-29] MEDS: levETIRAcetam 250MG TABLET (KEPPRA) PO SCH (09:15)
[2020-11-29] MEDS: PANTOPRAZOLE 40MG VIAL (C9113 PER 1) IV SCH (09:15)
[2020-11-29] MEDS: DOCUSATE SODIUM 100MG CAPSULE PO SCH ×2 (09:16→19:55)
[2020-11-29] MEDS: FUROSEMIDE 40 MG TAB PO SCH (09:16)
[2020-11-29] MEDS: ALVIMOPAN 12 MG CAPSULE (ENTEREG) PO SCH ×2 (09:16→19:55)
[2020-11-29] MEDS: SIMETHICONE 80MG CHEW TAB PO SCH ×4 (09:16→19:55)
[2020-11-29] MEDS: METOPROLOL TART 25 MG TABLET PO SCH ×2 (09:18→19:57)
[2020-11-29 10:00] VITALS: BP 138/55
[2020-11-29] MEDS ORDERED: ENOXAPARIN 80MG/0.8ML SYRINGE (J1650 PER 10MG) SC ONE (10:00)
[2020-11-29 10:13] LABS: APTT 1:2 SUBSTITUTION 66.5 SECONDS
--- NOTE | 2020-11-29 10:14 | RO ---
OPERATIVE NOTE DATE OF OPERATION: 11/23/2020 PREOPERATIVE DIAGNOSIS: Colonic polyp, right colon (high-grade dysplasia). POSTOPERATIVE DIAGNOSIS: Colonic polyp, right colon (high-grade dysplasia). PROCEDURE: Laparoscopic right colectomy with ileocolic anastomosis . SURGEON: Rafael Muller MD IRON WORKER APPRENTICE: Nathaniel Bennett MD (provided assistance with retraction and the anastomosis, abdominal wall closure). ANESTHESIA: ESTIMATED BLOOD LOSS: Minimal. FLUIDS: Crystalloid. BRIEF PROCEDURE SUMMARY: The patient was brought to the operating room and was given general anesthesia. After adequate anesthesia and preoperative antibiotics were given, the patient was prepped and draped in the usual sterile fashion. Next, a supraumbilical incision was made with a skin knife. Blunt dissection was carried down to fascia. The fascia was entered using a Veress needle insufflated to 15 mm pressure. A dilating 10 mm trocar was placed and under direct visualization, a suprapubic left-sided 5 mm trocar as well as an epigastric 5 mm trocar were placed. The patient was placed in Trendelenburg, left-side down position and the right colon was mobilized with harmonic scalpel off the right abdominal wall and the appendix was adherent on the vessels in this area and I was able to mobilize the cecum and the right colon all the way across the hepatic flexure and into the transverse colon using the harmonic scalpel and into a nice plane. I was able to mobilize this off to the duodenum and the pancreas was well visualized in this area as well. Vessels were nicely visualized as well. However, the small bowel was tightly adherent to the pelvic sidewall on the right-hand side and was slow but difficult dissection taking down the peritoneum in this area with harmonic scalpel, taking care to stay off the ureter that I was able to visualize very nicely and follow this down. Once again, this was very closely approximated to that as well as the small bowel and eventually I was able to mobilize this small bowel enough to get it out of the pelvis off the right iliac vessels and the ureter in this area. After all these were seen and preserved and the terminal ileum was nicely mobilized, the cecum was grasped, brought out through the umbilicus and a [id number] anastomosis with the terminal ileum to the transverse colon was created with a ARIANNA-75 load and the enterotomy site closed with a ARIANNA-75 load as well. GIAs were originally placed across the terminal ileum and the transverse proximal to the area of carbon spot marking in the hepatic flexure. Good hemostasis was achieved throughout as well as at the anastomosis. Some 3-0 Vicryls were used to imbricate the anterior suture line of the anastomosis and the staple line was intact. This was returned to the abdominal cavity and intra-abdominally appeared clean and dry. The midline was closed with running #1 Vicryl. Grampian were used to approximate the skin. Dry sterile dressing was applied and the patient was awakened, extubated, brought to the recovery room awake, alert, hemodynamically stable. Sponge and needle counts were correct x2.
[2020-11-29] MEDS: CHLORASEPTIC SPRAY MT PRN ×3 (10:30→17:08)
[2020-11-29] MEDS: KCL 40MEQ in NS 1000ML 1,000 ML IV SCH (12:31)
[2020-11-29 14:00] VITALS: BP 136/55
--- NOTE | 2020-11-29 14:55 | IPNPDOC ---
Text Note Date of Service The patient was seen on 11/29/20. NOTE General Surgery Dr Muller. The pt is a 75-year-old male who underwent colonoscopy in August of 2020 and had a polyp which was in the right colon identified as tubular adenoma fragments that was removed/biopsied, had a follow up colonoscopy by Dr. Gaines who biopsied the area and found some high grade dysplasia, now S/P right colectomy as per Dr Muller 11/23/20, complicated by ileus secondary to intra-abdominal bleeding related to anticoagulant use. The patient reports flatus and 2 small bowel movements, one moderate-sized bowel movement. Denies nausea or vomiting. He is mostly bothered by the NG tube and reports throat irritation. Afebrile. Blood pressure 136/55, heart rate 61, 97% RA. General. The patient is awake and alert resting in bed comfortably, no acute distress. Abdomen soft, less distended, NT. Extremities well perfused, no edema. I/O 1057/600, +457 WBC 12.7, decreased from 15 11/28. Hgb 9.2 which is decreased from 11.7 11/28. Assessment/plan S/P Rt Colectomy 11/23/20. Pt with Ileus most likely secondary to intra-abdominal bleeding secondary to his chronic anticoagulation use. The patient is reviewed and examined as per Dr. Muller this morning. NG tube in place. Trial of clamping NG tube today and monitor residuals. Chloraseptic as needed for throat irritation. Continue IV Cipro/Flagyl IVF 75 mL per hour. Entereg. Encourage ambulation Continue incentive spirometry. Hypertension Lisinopril/metoprolol/ Lasix PAF/AVR Coumadin on hold. Plan to DC IV heparin today and change to Lovenox subcutaneous 1 mg/kg twice a day. 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 CAD/CABG Metoprolol/statin DM. SSI. Glipizide on hold. Seizure disorder. Keppra. Dyslipidemia Zocor VS,Fishbone, I+O VS, Fishbone, I+O Laboratory Tests 11/29/20 05:57 Vital Signs Date Time Temp Pulse Resp B/P (MAP) Pulse Ox O2 Delivery O2 Flow Rate FiO2 11/29/20 14:00 98.9 61 16 136/55 (82) 97 Room Air 3/11/21 20:45 96.0 I&O- Last 24 Hours up to 6 AM 11/29/20 06:00 Intake Total 1687 ml Output Total 50 ml Balance 1637 ml Carolina Naidu Nov 29, 2020 14:55
[2020-11-29 18:00] VITALS: BP 135/56
[2020-11-29] MEDS: SIMVASTATIN 40 MG TAB PO SCH (19:55)
[2020-11-29 20:00] VITALS: BP 131/54
[2020-11-29] MEDS: ENOXAPARIN 80MG/0.8ML SYRINGE (J1650 PER 10MG) SC SCH (20:00)
[2020-11-29] MEDS ORDERED: ENOXAPARIN 80MG/0.8ML SYRINGE (J1650 PER 10MG) SC SCH (21:00)
[2020-11-30] MEDS: HumaLOG INSULIN (NovoLOG) PER UNIT SC SCH ×4 (00:10→17:37)
[2020-11-30] MEDS: CIPROFLOXACIN 400 MG in IV 1 EA IV SCH ×2 (00:10→14:02)
[2020-11-30] MEDS: CHLORASEPTIC SPRAY MT PRN (01:01)
[2020-11-30] MEDS: IPRATROPIUM 0.5MG/ALBUTEROL 2.5MG INH SOL UD 3ML (DUONEB) NEB SCH ×4 (01:06→20:07)
[2020-11-30 02:00] VITALS: BP 129/53
--- NOTE | 2020-11-30 02:26 | REPVR ---
PROCEDURE INFORMATION: Exam: XR Chest Exam date and time: 11/30/2020 2:06 AM Age: 75 years old Clinical indication: Device placement; Ng tube; Additional info: Confirm ng tube placement TECHNIQUE: Imaging protocol: XR of the chest Views: 1 view. COMPARISON: CR Abdomen,Flat Upright,PA CHEST 11/28/2020 12:38 PM FINDINGS: Tubes, catheters and devices: NG tube extends into the stomach. Lungs: Degree of lung inflation is normal. No evidence of pulmonary edema. No focal consolidation or parenchymal lung mass. Pleural spaces: No pneumothorax. Blunted lateral costophrenic angles suggest small volume of pleural fluid or pleural scarring Heart/Mediastinum: Cardiac silhouette appears normal. No adenopathy or hilar mass. Pacemaker is present, with right atrial and right ventricular leads. Prosthetic cardiac valve is present. Bones/joints: Osseous structures show no concerning abnormality. Median sternotomy and coronary bypass changes are present. Soft tissues: Click chest AP IMPRESSION: Blunted costophrenic angle suggesting small pleural effusions. No underlying active pulmonary edema or focal pneumonia Electronically signed by: Clark Mark On 11/30/2020 02:26:50 AM
[2020-11-30] MEDS: metroNIDAZOLE 500 MG in IV 1 EA IV SCH ×3 (04:28→20:37)
[2020-11-30 06:00] VITALS: BP 128/53
[2020-11-30 06:21] LABS: HEMATOCRIT 28.5 % (42.0-52.0); HEMOGLOBIN 9.6 g/dl (13.5-17.5); MEAN CORPUSCULAR HEMOGLOBIN 32.7 pg (27.0-33.0); MEAN CORPUSCULAR HGB CONC 33.7 g/dl (32.0-36.5); MEAN CORPUSCULAR VOLUME 96.9 fl (80.0-96.0); PLATELET COUNT, AUTOMATED 143 10^3/uL (150-450); RED BLOOD COUNT 2.94 10^6/uL (4.30-6.10); WHITE BLOOD COUNT 13.4 10^3/uL (4.0-10.0)
[2020-11-30 06:26] LABS: INR 1.89; PROTHROMBIN TIME 22.1 SECONDS (12.5-14.3)
[2020-11-30 06:50] LABS: BLOOD UREA NITROGEN 20 MG/DL (7-18); CARBON DIOXIDE LEVEL 34 MEQ/L (21-32); CHLORIDE LEVEL 110 MEQ/L (98-107); CREATININE FOR GFR 0.77 MG/DL (0.70-1.30); GLOMERULAR FILTRATION RATE > 60.0 (>42); GLUCOSE, FASTING 162 MG/DL (70-100); POTASSIUM SERUM 3.9 MEQ/L (3.5-5.1); SODIUM LEVEL 142 MEQ/L (136-145)
[2020-11-30] MEDS: METOPROLOL TART 25 MG TABLET PO SCH (09:00)
[2020-11-30] MEDS: SIMETHICONE 80MG CHEW TAB PO SCH ×4 (09:26→20:32)
[2020-11-30] MEDS: levETIRAcetam 250MG TABLET (KEPPRA) PO SCH (09:26)
[2020-11-30] MEDS: ENOXAPARIN 80MG/0.8ML SYRINGE (J1650 PER 10MG) SC SCH ×2 (09:27→20:27)
[2020-11-30] MEDS: ALVIMOPAN 12 MG CAPSULE (ENTEREG) PO SCH ×2 (09:27→20:28)
[2020-11-30] MEDS: FUROSEMIDE 40 MG TAB PO SCH (09:27)
[2020-11-30] MEDS: DOCUSATE SODIUM 100MG CAPSULE PO SCH ×2 (09:27→20:27)
[2020-11-30] MEDS: PANTOPRAZOLE 40MG VIAL (C9113 PER 1) IV SCH (09:27)
--- NOTE | 2020-11-30 10:16 | IPNPDOC ---
Text Note Date of Service The patient was seen on 11/30/20. NOTE General Surgery Dr Muller. The pt is a 75-year-old male who underwent colonoscopy in August of 2020 and had a polyp which was in the right colon identified as tubular adenoma fragments that was removed/biopsied, had a follow up colonoscopy by Dr. Gaines who biopsied the area and found some high grade dysplasia, now S/P right colectomy as per Dr Muller 11/23/20, complicated by ileus secondary to intra-abdominal bleeding related to anticoagulant use. NGT still in place, currently LIS, 800 mL out yesterday, bilious drainage. Denies nausea or vomiting. States he is noting flatus and has had soft bowel movements over the past 24 hours, reporting large bowel movement last evening. He is still mostly bothered by the NG tube and reports throat irritation. Afebrile. Blood pressure 128/53, heart rate 61, 97% RA. General. The patient is awake and alert, no acute distress. Abdomen is soft, overall less distention than noted yesterday, no rebound, guarding or grimacing. Bowel sounds are noted. Extremities well perfused, no edema. I/O is inaccurate, urine output is not recorded. WBC 13.4 increased slightly compared with yesterday Hgb 9.6 also increased slightly compared with yesterday Platelets 143, increased slightly. Assessment/plan S/P Rt Colectomy 11/23/20. Post operative ileus most likely secondary to intra-abdominal bleeding secondary to his chronic anticoagulation use. The patient is reviewed and examined as per Dr. Muller this morning. Pt reports BMs and large BM last evening. NG tube in place. Currently LIS. Chloraseptic as needed for throat irritation. Continue IV Cipro/Flagyl IVF 75 mL per hour. Entereg. Plan to update AXR this AM. Continue to encourage ambulation Continue incentive spirometry. Hypertension Lisinopril/metoprolol/ Lasix po at his outpatient dose. BP controlled. I/O is inaccurate as urine output has not been recorded for the past few days. PAF/AVR Coumadin on hold. IV heparin discontinued, currently Lovenox SQ BID. 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 CAD/CABG Metoprolol/statin DM. SSI. Glipizide on hold. Seizure disorder. Keppra. Dyslipidemia Zocor VS,Fishbone, I+O VS, Fishbone, I+O Laboratory Tests 11/30/20 05:57 Vital Signs Date Time Temp Pulse Resp B/P (MAP) Pulse Ox O2 Delivery O2 Flow Rate FiO2 11/30/20 09:29 128/52 11/30/20 09:00 61 11/30/20 06:00 97.2 18 97 Room Air 11/25/20 20:45 96.0 I&O- Last 24 Hours up to 6 AM 11/30/20 06:00 Intake Total 2275 ml Output Total 750 ml Balance 1525 ml Carolina Naidu Nov 30, 2020 10:16
--- NOTE | 2020-11-30 10:36 | REP ---
INDICATION: ileus?. COMPARISON: Comparison portable chest x-ray November 30 2020. Comparison abdomen film November 28, 2020.. TECHNIQUE: Three views. FINDINGS: Upright chest radiograph shows a bipolar pacemaker in place. Mild cardiomegaly is observed. The patient is status post aortic valve replacement and median sternotomy wires are seen. And nasogastric tube is noted with its tip at the level of gastroesophageal junction. There are granulomatous calcifications in the left base and possibly right base. There is slight blunting of the pleural angles bilaterally. No free subdiaphragmatic air is seen. There are old healing rib fractures bilaterally. Supine and erect views of the abdomen show a surgical clips and sutures scattered about the abdomen with a suture line in the right mid abdomen. There are air-fluid levels in persistently dilated small bowel loops in the central abdomen although these are somewhat decreased in size when compared with the November 28, 2020 study. Similar number of loops is seen. There is no evidence of free intraperitoneal air. There is a paucity of distal bowel gas. No stool is visible in the colon. Vascular calcification is noted. IMPRESSION: Slightly improved but persistent small bowel dilation with air-fluid levels and a paucity of distal gas. Cannot exclude small bowel obstruction. No free air seen.. <Electronically signed by Bubba Fischer > 11/30/20 [id number]
--- NOTE | 2020-11-30 12:13 | REP ---
INDICATION: confirm proper NG tube placement. 11:31 a.m. radiograph. COMPARISON: Comparison chest radiograph November 30, 2020. 10:04 a.m. film. TECHNIQUE: Portable upright AP chest radiograph. FINDINGS: The patient is status post prior median sternotomy and aortic valve replacement. Cardiomegaly is observed. A bipolar pacemaker is seen in the heart view of the left side. Pulmonary vasculature is slightly cephalized.. There is very slight blunting of the right lateral and left lateral pleural angles unchanged. Nasogastric tube is seen terminating laterally in the gastric fundus improved in position. No free air. Granulomatous calcification is seen in the left upper lobe region. IMPRESSION: Cardiomegaly with pacemaker. Status post aortic valve replacement. NG tube to the gastric fundus good position.. <Electronically signed by Bubba Fischer > 11/30/20 0636
[2020-11-30 14:00] VITALS: BP 136/67
[2020-11-30] MEDS ORDERED: LIDOCAINE 1% MDV 20ML VIAL As Ordered ONE (15:28)
[2020-11-30] MEDS: AMINO AC/ELECTROLYTE/DEX/CALC 1,000 ML IV SCH (17:43)
[2020-11-30] MEDS ORDERED: FAT EMULSION IV 20% 500 ML IV SCH (18:00)
--- NOTE | 2020-11-30 19:17 | REP ---
PROCEDURE NAME: PICC LINE INSERTION W/SITERITE CLINICAL INFORMATION: need for TPN - Dual lumen. COMPARISON: None. PROCEDURE DESCRIPTION: The procedure was performed by ALEXANDER Mann, under the direct supervision of Dr. Fischer. The risks and benefits of the procedure were explained to the patient and an informed consent was obtained both verbally and written. Directly prior to the start of the procedure a formal time-out was completed in the procedure room. The right basilic vein was localized using ultrasound guidance. The skin was prepped and draped in sterile fashion. One mL of 1% lidocaine 10 mg/mL was used as a local anesthetic. Using ultrasound guidance the right basilic vein was cannulated, and a 0.018 guidewire was inserted and advanced to the level of SVC using fluoroscopic guidance. The needle was removed and a 5.5 Mongolian dilator and peel-away sheath was inserted over the guidewire. A 5.5 Mongolian dual lumen catheter was cut to a length of 42 cm. The dilator was removed and the catheter was inserted over the guidewire with the tip ending at the level of the SVC. The peel-away sheath was removed and the catheter was flushed with heparinized saline as per hospital protocol. The catheter was affixed to the skin and a sterile dressing was applied. The patient tolerated the procedure well and there were no immediate complications. CONCLUSION: PICC line insertion into the right basilic vein. 0.3 minutes of fluoroscopy time was utilized for this procedure. Some fluoroscopic images are performed with last image hold technology. These images require no additional radiation. <Electronically signed by Elisha Kerr > 11/30/20 1643 <Electronically signed by Bubba Fischer > 11/30/20 [id number]
[2020-11-30] MEDS: SIMVASTATIN 40 MG TAB PO SCH (20:28)
[2020-11-30] MEDS: METOPROLOL TART 12.5 MG PER 1/2 TAB PO SCH (20:31)
[2020-11-30 22:00] VITALS: BP 147/58
[2020-12-01] MEDS: CIPROFLOXACIN 400 MG in IV 1 EA IV SCH ×2 (00:23→13:00)
[2020-12-01] MEDS: HumaLOG INSULIN (NovoLOG) PER UNIT SC SCH ×5 (00:24→23:51)
[2020-12-01] MEDS: IPRATROPIUM 0.5MG/ALBUTEROL 2.5MG INH SOL UD 3ML (DUONEB) NEB SCH ×4 (01:09→20:25)
[2020-12-01] MEDS: metroNIDAZOLE 500 MG in IV 1 EA IV SCH ×3 (04:09→20:01)
[2020-12-01] MEDS: SODIUM CHLORIDE 0.9% INJ 10 ML SYR IV SCH ×2 (05:29→18:55)
[2020-12-01 06:00] VITALS: BP 146/56
[2020-12-01 06:09] LABS: INR 1.78; PROTHROMBIN TIME 21.1 SECONDS (12.5-14.3)
[2020-12-01] MEDS: AMINO AC/ELECTROLYTE/DEX/CALC 1,000 ML IV SCH (06:54)
[2020-12-01] MEDS ORDERED: ISOVUE-370 76% 100ML VIAL As Ordered ONE (09:22)
[2020-12-01] MEDS: levETIRAcetam 250MG TABLET (KEPPRA) PO SCH (09:50)
[2020-12-01] MEDS: DOCUSATE SODIUM 100MG CAPSULE PO SCH ×2 (09:50→20:00)
[2020-12-01] MEDS: SIMETHICONE 80MG CHEW TAB PO SCH ×4 (09:51→20:00)
[2020-12-01] MEDS: FUROSEMIDE 40 MG TAB PO SCH (09:52)
[2020-12-01] MEDS: METOPROLOL TART 12.5 MG PER 1/2 TAB PO SCH ×2 (09:54→20:00)
[2020-12-01] MEDS: PANTOPRAZOLE 40MG VIAL (C9113 PER 1) IV SCH (09:55)
--- NOTE | 2020-12-01 09:58 | REP ---
INDICATION: ?hematoma post op colectomy. COMPARISON: 10/20/2020 TECHNIQUE: Axial contrast-enhanced images from the lung bases to the pubic symphysis using 100 cc Isovue 370 intravenous contrast material. Coronal and sagittal reformations obtained. This CT examination was performed using the following dose reduction techniques: Automated exposure control, adjustment of mA and/or kv according to the patient's size, and the use of iterative reconstruction technique. FINDINGS: Lung bases demonstrate small pleural effusions and bibasilar atelectasis. Liver, spleen, pancreas, gallbladder, bilateral adrenal glands and kidneys are essentially normal. The patient appears to be status post partial ascending colectomy with enterocolonic anastomosis noted in the right mid abdomen. The small bowel extending from the pelvis to the area of anastomosis in the right mid abdomen demonstrates prominent wall thickening and mild perienteric stranding raising the possibility of an underlying infectious/inflammatory process as well as early ischemia. There is a somewhat small amount of high density ascites extending from a perihepatic distribution along the right pericolic gutter into the pelvis suggesting the possibility of complex proteinaceous versus hemorrhagic ascites. There is no free air. There is no discrete abscess. Further evaluation of the pelvis demonstrates normal bladder and age-appropriate prostate/seminal vesicles. Small fat containing right inguinal hernia noted. Atherosclerotic changes to the aorta without aneurysm or dissection. Musculoskeletal structures demonstrate age-related degenerative changes. IMPRESSION: 1. The appearance of the small bowel leading up to the anastomosis is suggestive of an underlying infectious/inflammatory process as well as the possibility of early ischemia. A small amount of possibly hemorrhagic ascites is identified extending into the pelvis. 2. No associated bowel obstruction or free air to suggest perforation. <Electronically signed by Schuyler Dunham > 12/01/20 0910
[2020-12-01] MEDS: SODIUM CHLORIDE 0.9% INJ 10 ML SYR IV PRN (10:44)
--- NOTE | 2020-12-01 10:53 | IPNPDOC ---
Text Note Date of Service The patient was seen on 12/01/20. NOTE General Surgery Dr Muller. The pt is a 75-year-old male who underwent colonoscopy in August of 2020 and had a polyp which was in the right colon identified as tubular adenoma fragments that was removed/biopsied, had a follow up colonoscopy by Dr. Gaines who biopsied the area and found some high grade dysplasia, now S/P right colectomy as per Dr Muller 11/23/20, complicated by ileus likely secondary to intra-abdominal bleeding related to anticoagulant use. NGT still in place, currently LIS, 770 mL out yesterday, yellow bilious drainage. Denies nausea or vomiting. Reports flatus. Is continuing to have BM, has had 4 bowel movements over the past 24 hours. Afebrile. Blood pressure 146/56, heart rate 61, 96% RA. General. The patient is awake and alert, no acute distress. OOB to chair this AM. Abdomen is soft, still with some distention about the same as yesterday, no rebound, guarding or grimacing. Bowel sounds are noted. Extremities well perfused, no edema. I/O is inaccurate, urine output is not recorded. Labs this AM pending Assessment/plan S/P Rt Colectomy 11/23/20. Post operative ileus most likely secondary to intra-abdominal bleeding secondary to his chronic anticoagulation use. The patient is reviewed and examined as per Dr. Muller this morning. Pt had BM x 4 yesterday. NG tube in place. Currently LIS. Continue IV Cipro/Flagyl PPN added yesterday. This AM labs pending at this time, ordered labs for tomorrow AM as well. Plan for CT A/P this am to evaluate further for possible hematoma. Continue to encourage ambulation Continue incentive spirometry. Hypertension Lisinopril/metoprolol/ Lasix po at his outpatient dose. BP controlled. I/O is inaccurate as urine output has not been recorded for the past few days. PAF/AVR Coumadin on hold. Lovenox SQ BID. Dose held this AM pending CT A/P results. 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 Plan to resume Coumadin when able. CAD/CABG Metoprolol/statin DM. SSI. Glipizide on hold. Seizure disorder. Keppra. Dyslipidemia Zocor VS,Fishbone, I+O VS, Fishbone, I+O Vital Signs Date Time Temp Pulse Resp B/P (MAP) Pulse Ox O2 Delivery O2 Flow Rate FiO2 12/01/20 09:54 60 144/55 12/01/20 07:32 15 12/01/20 06:00 98.0 96 Room Air 11/25/20 20:45 96.0 I&O- Last 24 Hours up to 6 AM 12/01/20 06:00 Intake Total 3010 ml Output Total 770 ml Balance 2240 ml Carolina Naidu Dec 01, 2020 10:53
[2020-12-01 11:00] LABS: BASO # 0.1 10^3/uL (0.0-0.2); BASO % 0.5 % (0.0-1.0); EOS # 0.3 10^3/uL (0.0-0.5); EOS % 2.2 % (0.0-3.0); HEMATOCRIT 30.1 % (42.0-52.0); LYMPH # 0.5 10^3/uL (1.5-5.0); LYMPH % 3.9 % (24.0-44.0); MEAN CORPUSCULAR HEMOGLOBIN 32.3 pg (27.0-33.0); MEAN CORPUSCULAR HGB CONC 33.2 g/dl (32.0-36.5); MEAN CORPUSCULAR VOLUME 97.1 fl (80.0-96.0); MONO % 7.9 % (2.0-8.0); NEUTROPHILS # 10.7 10^3/uL (1.5-8.5); PLATELET COUNT, AUTOMATED 155 10^3/uL (150-450); WHITE BLOOD COUNT 12.9 10^3/uL (4.0-10.0)
[2020-12-01] MEDS ORDERED: ENOXAPARIN 60MG/0.6ML SYRINGE (J1650 PER 10MG) SC ONE (11:15)
[2020-12-01 11:24] LABS: BLOOD UREA NITROGEN 17 MG/DL (7-18); CALCIUM LEVEL 8.1 MG/DL (8.8-10.2); CARBON DIOXIDE LEVEL 23 MEQ/L (21-32); CHLORIDE LEVEL 109 MEQ/L (98-107); GLOMERULAR FILTRATION RATE > 60.0 (>42); GLUCOSE, FASTING 195 MG/DL (70-100); POTASSIUM SERUM 3.5 MEQ/L (3.5-5.1); SODIUM LEVEL 140 MEQ/L (136-145)
[2020-12-01 14:00] VITALS: BP 119/58
[2020-12-01] MEDS ORDERED: MULTIVITAMIN -ADULT INJECTION 10 ML, CR/CU/SE/MN/ZN INJ 1 ML in AMINO AC/ELECTROLYTE/DE... IV SCH (18:00)
[2020-12-01] MEDS ORDERED: FAT EMULSION IV 20% 500 ML IV SCH (18:00)
[2020-12-01] MEDS: SIMVASTATIN 40 MG TAB PO SCH (20:00)
[2020-12-01 22:00] VITALS: BP 143/53
[2020-12-02] MEDS: CIPROFLOXACIN 400 MG in IV 1 EA IV SCH ×2 (00:03→12:54)
[2020-12-02] MEDS: IPRATROPIUM 0.5MG/ALBUTEROL 2.5MG INH SOL UD 3ML (DUONEB) NEB SCH ×4 (01:08→19:56)
[2020-12-02] MEDS: metroNIDAZOLE 500 MG in IV 1 EA IV SCH ×3 (04:14→22:02)
[2020-12-02 06:00] VITALS: BP 140/53
[2020-12-02] MEDS: SODIUM CHLORIDE 0.9% INJ 10 ML SYR IV SCH ×2 (06:00→18:16)
[2020-12-02 06:17] LABS: BASO % 0.4 % (0.0-1.0); EOS # 0.3 10^3/uL (0.0-0.5); EOS % 3.3 % (0.0-3.0); HEMATOCRIT 28.9 % (42.0-52.0); HEMOGLOBIN 9.7 g/dl (13.5-17.5); LYMPH # 0.5 10^3/uL (1.5-5.0); MEAN CORPUSCULAR HEMOGLOBIN 32.9 pg (27.0-33.0); MEAN CORPUSCULAR HGB CONC 33.6 g/dl (32.0-36.5); MONO # 0.9 10^3/uL (0.0-0.8); MONO % 8.8 % (2.0-8.0); NEUTROPHILS # 7.9 10^3/uL (1.5-8.5); NEUTROPHILS % 78.9 % (36.0-66.0); PLATELET COUNT, AUTOMATED 139 10^3/uL (150-450); RED BLOOD COUNT 2.95 10^6/uL (4.30-6.10)
[2020-12-02] MEDS: HumaLOG INSULIN (NovoLOG) PER UNIT SC SCH ×3 (06:37→18:18)
[2020-12-02 06:42] LABS: INR 1.27; PROTHROMBIN TIME 16.2 SECONDS (12.5-14.3)
[2020-12-02 06:44] LABS: BLOOD UREA NITROGEN 16 MG/DL (7-18); CALCIUM LEVEL 7.6 MG/DL (8.8-10.2); CARBON DIOXIDE LEVEL 25 MEQ/L (21-32); CHLORIDE LEVEL 109 MEQ/L (98-107); CREATININE FOR GFR 0.67 MG/DL (0.70-1.30); GLOMERULAR FILTRATION RATE > 60.0 (>42); GLUCOSE, FASTING 305 MG/DL (70-100); POTASSIUM SERUM 3.4 MEQ/L (3.5-5.1); SODIUM LEVEL 141 MEQ/L (136-145)
[2020-12-02] MEDS ORDERED: POTASSIUM CHLORIDE 10 MEQ SR TABLET PO ONE (09:00)
[2020-12-02] MEDS: levETIRAcetam 250MG TABLET (KEPPRA) PO SCH (09:13)
[2020-12-02] MEDS: SIMETHICONE 80MG CHEW TAB PO SCH ×4 (09:14→22:03)
[2020-12-02] MEDS: DOCUSATE SODIUM 100MG CAPSULE PO SCH ×2 (09:14→22:03)
[2020-12-02] MEDS: PANTOPRAZOLE 40MG VIAL (C9113 PER 1) IV SCH (09:14)
[2020-12-02] MEDS: FUROSEMIDE 40 MG TAB PO SCH (09:14)
[2020-12-02] MEDS: ENOXAPARIN 80MG/0.8ML SYRINGE (J1650 PER 10MG) SC SCH ×2 (09:15→22:05)
[2020-12-02] MEDS: METOPROLOL TART 12.5 MG PER 1/2 TAB PO SCH ×2 (09:17→22:03)
--- NOTE | 2020-12-02 10:03 | CR ---
CONSULTATION DATE: 12/01/2020 Referring physician: Rafael Muller MD, CESAR Jaime INDICATION: Coronary artery disease, paroxysmal atrial fibrillation, aortic valve replacement. HISTORY OF PRESENT ILLNESS: Mr. Olvera is well known to me. He has been my patient for many years. He carries a history of coronary artery bypass surgery, aortic valve replacement with mechanical prosthesis, paroxysmal atrial fibrillation and also has a pacemaker in place. He underwent a right hemicolectomy on November [address] Muller for finding of highly dysplastic polyp. The procedure was uneventful but yesterday the patient was complaining about shortness of breath and consequently I was asked to see him. I saw him last night and then again this morning. The patient tells me that he really does not feel short of breath. His dominant complaint has to do by the presence of NG tube is highly irritating his throat. He denies any chest pain. He denies any palpitations. He does have mild abdominal discomfort, no nausea or vomiting. He appears highly uncomfortable overall though and I can appreciate significant weight loss since I saw him last a few months ago. PAST MEDICAL HISTORY: 1. Coronary artery bypass surgery in 2004 (he received WILLSON to LAD and SVG to obtuse marginal. Last evaluation for ischemia was pharmacology stress test in February, that revealed normal perfusion. 2. History of pacemaker placement for sick sinus syndrome. It was eventually replaced in 2013 and he currently has [employer] dual-chamber pacemaker. 3. Paroxysmal atrial fibrillation. 4. History of mechanical aortic valve replacement in 2004 ([facility]). 5. History of ischemic stroke in 2008. That occurred in setting of full anticoagulation and was believed to be embolic possibly related to mechanical valve. 6. Type 2 diabetes. 7. History of mitral valve prolapse with repeated echocardiograms revealing approximately mild to moderate mitral insufficiency. SURGICAL HISTORY: 1. Open heart surgery in 2004 (CABG plus AVR). 2. Pacemaker placement. SOCIAL HISTORY: The patient is . He has never smoked, does not drink. FAMILY HISTORY: No relevant. OUTPATIENT MEDICATIONS: 1. Warfarin as directed by [facility]. 2. Furosemide 40 mg a day. 3. Glipizide 5 mg a day. 4. Levetiracetam 750 mg two pills a day. 5. Lisinopril 20 mg a day. 6. Metformin 500 mg twice a day. 7. Metoprolol 12. 5 twice a day. 8. Simvastatin 40 mg daily. 9. Supplemental iron. REVIEW OF SYSTEMS: Essentially as per HPI or otherwise negative. PHYSICAL EXAMINATION: Mr. Olvera is a 75-year-old man who appears probably younger than his calendar age. He appears uncomfortable but is not in any distress. Vital signs: This morning, blood pressure 144/55. Heart rate has been in the 60s, mostly sinus rhythm. He has been afebrile. Saturation is 98% on room air. He has an NG tube in place. There is a PICC in place as well. Weight was recorded 77.9 kilograms which approximately 8 kilograms down since admission. He is alert and oriented and appropriate. The JVP is not high. Lungs sound clear to auscultation with good air movement. I do not appreciate wheezing or crackles. Heart exam reveals regular rhythm. There are intact aortic metallic prosthetic sounds with associated murmur, 1/6 intensity. I do not appreciate a diastolic murmur. There is faint murmur at the apex of MR. Abdomen is diffusely but only mildly tender. Bowel sounds are present, no guarding, no rebound tenderness. Extremities are free of edema. Neurologically, he appears intact. There is very slight speech impediment which is a consequence of his remote stroke. LABORATORIES: WBC count 12.9, hemoglobin 10, hematocrit 30.1, platelet count 155,000. Basic metabolic panel: Sodium 140, potassium 3.5, BUN 17, creatinine 0.7, glucose 195. INR this morning was 1.78. He had a CT scan of the abdomen today that revealed presence of a small amount of possibly hemorrhagic ascites with some thickening of small bowel loops adjacent to anastomosis and small bilateral pleural effusions. No EKGs were performed. ASSESSMENT AND PLAN: Mr. Olvera is a 75-year-old man who has a history of CABG in 2004, has paroxysmal atrial fibrillation, pacemaker placement, mechanical aortic valve replacement, who underwent right-sided hemicolectomy on November 23. Reportedly he is not progressing as uneventfully as we were hoping for. There is suspicion for possibly even hemorrhagic ascites related to use of anticoagulation. From a cardiac perspective, I do not have much to contribute at this setting. The decision about anticoagulation boils down to the assessment of his gastrointestinal status. If the anticoagulation has to be held, then we will hold it. I only would like that it is restarted as soon as possible when felt safe. It would be preferable that he is actually restarted on warfarin but in the interim, the use of heparin or Lovenox can certainly be utilized. As far as the cardiac status itself is concerned, his vital signs have been stable and even though he had small pleural effusions, I do not appreciate any congestive heart failure. I believe that the effusions are principally related to the lack of nutrition for almost a week plus inflammatory status. I agree with otherwise current cardiac medications and do not have any new recommendations. I briefly discussed my recommendations with CESAR Jaime. MADISON
--- NOTE | 2020-12-02 12:30 | IPNPDOC ---
Text Note Date of Service The patient was seen on 12/02/20. NOTE General Surgery Dr Muller. The pt is a 75-year-old male who underwent colonoscopy in August of 2020 and had a polyp which was in the right colon identified as tubular adenoma fragments that was removed/biopsied, had a follow up colonoscopy by Dr. Gaines who biopsied the area and found some high grade dysplasia, now S/P right colectomy as per Dr Muller 11/23/20, complicated by ileus likely secondary to intra-abdominal bleeding related to anticoagulant use. NGT still in place, currently LIS, 940mL out yesterday, bilious drainage. Denies nausea or vomiting. Reports flatus. Is continuing to have BM, has had 4 BM documented yesterday, pt states formed, brown. Afebrile. Blood pressure 140/53, heart rate 61, 94% RA. General. The patient is awake and alert, no acute distress. OOB to chair this AM. Abdomen is soft, still with distention about the same but NT, no rebound, guarding or grimacing. Bowel sounds are noted. Extremities well perfused, no edema. I/O is inaccurate. WBC this morning is 10.0, continued downward trend. Hemoglobin 9.7, 10.0 yesterday. Potassium is noted to be 3.4. Assessment/plan S/P Rt Colectomy 11/23/20. Post operative ileus most likely secondary to intra-abdominal bleeding secondary to his chronic anticoagulation use. BM x 4 documented yesterday. NG tube in place. Currently LIS. 940 ML out yesterday. Continue IV Cipro/Flagyl Continue PPN. CT A/P reviewed by Dr. Muller yesterday, did not indicate hematoma or abscess. Continue to encourage ambulation Continue incentive spirometry. Continue to monitor. Hypertension Lisinopril/metoprolol/ Lasix po at his outpatient dose. BP controlled. I/O is inaccurate. PAF/AVR Coumadin on hold. Lovenox SQ BID. 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 Plan to resume Coumadin when able. CAD/CABG Metoprolol/statin DM. SSI. Glipizide on hold. Seizure disorder. Keppra. Dyslipidemia Zocor VS,Fishbone, I+O VS, Fishbone, I+O Laboratory Tests 12/02/20 06:05 Vital Signs Date Time Temp Pulse Resp B/P (MAP) Pulse Ox O2 Delivery O2 Flow Rate FiO2 12/02/20 09:17 61 12/02/20 09:17 139/52 12/02/20 06:00 98.6 18 94 Room Air I&O- Last 24 Hours up to 6 AM 12/02/20 06:00 Intake Total 1640 ml Output Total 1130 ml Balance 510 ml Carolina Naidu Dec 02, 2020 12:30
[2020-12-02 14:00] VITALS: BP 136/53
[2020-12-02] MEDS ORDERED: AMINO AC/ELECTROLYTE/DEX/CALC 2,000 ML IV SCH (18:00)
[2020-12-02] MEDS ORDERED: FAT EMULSION IV 20% 500 ML IV SCH (18:00)
[2020-12-02 22:00] VITALS: BP 137/54
[2020-12-02] MEDS: SIMVASTATIN 40 MG TAB PO SCH (22:03)
[2020-12-02] MEDS: SODIUM CHLORIDE 0.9% INJ 10 ML SYR IV PRN (23:23)
[2020-12-03] MEDS: CIPROFLOXACIN 400 MG in IV 1 EA IV SCH ×2 (00:19→12:45)
[2020-12-03] MEDS: HumaLOG INSULIN (NovoLOG) PER UNIT SC SCH ×4 (00:20→18:07)
[2020-12-03] MEDS: SODIUM CHLORIDE 0.9% INJ 10 ML SYR IV PRN ×2 (01:37→09:56)
[2020-12-03] MEDS: IPRATROPIUM 0.5MG/ALBUTEROL 2.5MG INH SOL UD 3ML (DUONEB) NEB SCH ×4 (02:00→19:40)
[2020-12-03] MEDS: metroNIDAZOLE 500 MG in IV 1 EA IV SCH ×3 (05:26→20:48)
[2020-12-03 06:00] VITALS: BP 139/56
[2020-12-03 06:20] LABS: BASO # 0.1 10^3/uL (0.0-0.2); BASO % 0.5 % (0.0-1.0); EOS # 0.3 10^3/uL (0.0-0.5); EOS % 3.1 % (0.0-3.0); HEMATOCRIT 29.6 % (42.0-52.0); HEMOGLOBIN 10.1 g/dl (13.5-17.5); LYMPH # 0.5 10^3/uL (1.5-5.0); LYMPH % 5.1 % (24.0-44.0); MEAN CORPUSCULAR HEMOGLOBIN 32.5 pg (27.0-33.0); MEAN CORPUSCULAR HGB CONC 34.1 g/dl (32.0-36.5); MEAN CORPUSCULAR VOLUME 95.2 fl (80.0-96.0); MONO # 0.8 10^3/uL (0.0-0.8); MONO % 7.5 % (2.0-8.0); NEUTROPHILS # 8.4 10^3/uL (1.5-8.5); NEUTROPHILS % 81.1 % (36.0-66.0); PLATELET COUNT, AUTOMATED 151 10^3/uL (150-450); RED BLOOD COUNT 3.11 10^6/uL (4.30-6.10); WHITE BLOOD COUNT 10.4 10^3/uL (4.0-10.0)
[2020-12-03] MEDS: SODIUM CHLORIDE 0.9% INJ 10 ML SYR IV SCH ×2 (06:34→18:08)
[2020-12-03 06:39] LABS: BLOOD UREA NITROGEN 15 MG/DL (7-18); CALCIUM LEVEL 7.5 MG/DL (8.8-10.2); CARBON DIOXIDE LEVEL 26 MEQ/L (21-32); CHLORIDE LEVEL 107 MEQ/L (98-107); CREATININE FOR GFR 0.82 MG/DL (0.70-1.30); GLOMERULAR FILTRATION RATE > 60.0 (>42); GLUCOSE, FASTING 332 MG/DL (70-100); POTASSIUM SERUM 3.2 MEQ/L (3.5-5.1); SODIUM LEVEL 139 MEQ/L (136-145)
[2020-12-03] MEDS: SIMETHICONE 80MG CHEW TAB PO SCH ×4 (09:52→20:49)
[2020-12-03] MEDS: DOCUSATE SODIUM 100MG CAPSULE PO SCH ×2 (09:52→20:49)
[2020-12-03] MEDS: FUROSEMIDE 40 MG TAB PO SCH (09:53)
[2020-12-03] MEDS: levETIRAcetam 250MG TABLET (KEPPRA) PO SCH (09:53)
[2020-12-03] MEDS: METOPROLOL TART 12.5 MG PER 1/2 TAB PO SCH ×2 (09:55→20:48)
[2020-12-03] MEDS: PANTOPRAZOLE 40MG VIAL (C9113 PER 1) IV SCH (09:55)
[2020-12-03] MEDS: ENOXAPARIN 80MG/0.8ML SYRINGE (J1650 PER 10MG) SC SCH ×2 (09:56→20:49)
--- NOTE | 2020-12-03 11:57 | IPNPDOC ---
Text Note Date of Service The patient was seen on 12/03/20. NOTE General Surgery Dr Muller. The pt is a 75-year-old male who underwent colonoscopy in August of 2020 and had a polyp which was in the right colon identified as tubular adenoma fragments that was removed/biopsied, had a follow up colonoscopy by Dr. Gaines who biopsied the area and found some high grade dysplasia, now S/P right colectomy as per Dr Muller 11/23/20, complicated by ileus likely secondary to intra-abdominal bleeding related to anticoagulant use. NGT still in place but plan for trial of clamping today. Had 540 ML out an NG tube yesterday. Denies nausea or vomiting this morning. Out of bed to chair. Reports flatus. Is continuing to have BM patient reports 1 yesterday and 1 this morning. Afebrile. VSS General. The patient is awake and alert, no acute distress. OOB to chair. S1S2 RRR, crisp prosthetic closure noted. Lungs CTA Abdomen is soft, still with some distention but NT, no rebound, guarding or grimacing. Bowel sounds are noted. Extremities well perfused, no edema. I/O is inaccurate. WBC this morning is 10.4, essentially unchanged Hemoglobin 10.1, stable Assessment/plan S/P Rt Colectomy 11/23/20. Post operative ileus most likely secondary to intra-abdominal bleeding secondary to his chronic anticoagulation use. Trial of clamping NG tube today. Continue IV Cipro/Flagyl D5 Continue PPN[address] CT A/P reviewed by Dr. Muller , 12/01 did not indicate hematoma or abscess. Continue to encourage ambulation Continue incentive spirometry. Continue to monitor. Hypertension Lisinopril/metoprolol/ Lasix po at his outpatient dose. BP controlled. I/O is inaccurate. PAF/AVR Mechanical Coumadin on hold. Lovenox SQ BID. 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 Plan to resume Coumadin when able as pt is noted to have mechanical AVR. CAD/CABG Metoprolol/statin DM. SSI. Glipizide on hold. Seizure disorder. Keppra. Dyslipidemia Zocor VS,Fishbone, I+O VS, Fishbone, I+O Laboratory Tests 12/03/20 06:05 Vital Signs Date Time Temp Pulse Resp B/P (MAP) Pulse Ox O2 Delivery O2 Flow Rate FiO2 12/03/20 09:55 61 137/57 12/03/20 06:00 97.9 20 95 Room Air I&O- Last 24 Hours up to 6 AM 12/03/20 06:00 Intake Total 4240 ml Output Total 2300 ml Balance 1940 ml Carolina Naidu Dec 03, 2020 11:57
[2020-12-03 14:00] VITALS: BP 126/51
[2020-12-03] MEDS ORDERED: [UNRECOGNIZED DRUG - MIXTURE] IV SCH ×4 (18:00)
[2020-12-03] MEDS ORDERED: FAT EMULSION IV 20% 500 ML IV SCH (18:00)
[2020-12-03] MEDS: SIMVASTATIN 40 MG TAB PO SCH (20:48)
[2020-12-03 22:00] VITALS: BP 126/51
[2020-12-04] MEDS: IPRATROPIUM 0.5MG/ALBUTEROL 2.5MG INH SOL UD 3ML (DUONEB) NEB SCH ×4 (00:07→19:18)
[2020-12-04] MEDS: CIPROFLOXACIN 400 MG in IV 1 EA IV SCH ×2 (00:20→11:51)
[2020-12-04] MEDS: HumaLOG INSULIN (NovoLOG) PER UNIT SC SCH ×4 (00:21→17:49)
[2020-12-04] MEDS: SODIUM CHLORIDE 0.9% INJ 10 ML SYR IV SCH ×2 (04:04→17:49)
[2020-12-04] MEDS: metroNIDAZOLE 500 MG in IV 1 EA IV SCH ×3 (04:04→20:16)
[2020-12-04 06:00] VITALS: BP 131/60
[2020-12-04] MEDS: PANTOPRAZOLE 40MG VIAL (C9113 PER 1) IV SCH (09:07)
[2020-12-04] MEDS: SODIUM CHLORIDE 0.9% INJ 10 ML SYR IV PRN ×2 (09:07→21:58)
[2020-12-04] MEDS: ENOXAPARIN 80MG/0.8ML SYRINGE (J1650 PER 10MG) SC SCH ×2 (09:07→20:17)
[2020-12-04] MEDS: SIMETHICONE 80MG CHEW TAB PO SCH ×4 (09:08→20:17)
[2020-12-04] MEDS: levETIRAcetam 250MG TABLET (KEPPRA) PO SCH (09:08)
[2020-12-04] MEDS: DOCUSATE SODIUM 100MG CAPSULE PO SCH ×2 (09:09→20:17)
[2020-12-04] MEDS: FUROSEMIDE 40 MG TAB PO SCH (09:10)
[2020-12-04] MEDS: METOPROLOL TART 12.5 MG PER 1/2 TAB PO SCH ×2 (09:12→20:19)
[2020-12-04] MEDS ORDERED: POTASSIUM CHLORIDE 10 MEQ SR TABLET PO ONE (11:00)
--- NOTE | 2020-12-04 11:40 | IPNPDOC ---
Text Note Date of Service The patient was seen on 12/04/20. NOTE No acute events overnight. He is tolerating the NG out without any nausea or emesis. He is ambulating without difficulty, and denies any bloating. VSSAF NAD abd - soft, nt, nd, incisions c/d/i labs - below A) 75y/o male s/p rt hemicolectomy w/ post-op ileus P) clq diet for today continue TPN ambulate plan on d/c TPN and advance diet tomorrow if tolerating. Alexandro Uribe DO VS,Fishbone, I+O VS, Fishbone, I+O Vital Signs Date Time Temp Pulse Resp B/P (MAP) Pulse Ox O2 Delivery O2 Flow Rate FiO2 12/04/20 09:12 74 124/73 12/04/20 06:00 97.7 17 95 Room Air I&O- Last 24 Hours up to 6 AM 12/04/20 06:00 Intake Total 2680 ml Output Total 15 ml Balance 2665 ml SARITHA URIBE DO Dec 04, 2020 11:40
[2020-12-04 14:00] VITALS: BP 102/55
[2020-12-04] MEDS ORDERED: INSULIN HUMAN REGULAR IV SCH (18:00)
[2020-12-04] MEDS ORDERED: DEX IV SCH (18:00)
[2020-12-04] MEDS ORDERED: FAT EMULSION IV 20% 500 ML IV SCH (18:00)
[2020-12-04] MEDS ORDERED: CALC IV SCH (18:00)
[2020-12-04] MEDS ORDERED: ELECTROLYTE IV SCH (18:00)
[2020-12-04] MEDS ORDERED: AMINO AC IV SCH (18:00)
[2020-12-04] MEDS: SIMVASTATIN 40 MG TAB PO SCH (20:17)
[2020-12-04 22:00] VITALS: BP 130/66
[2020-12-05] MEDS: HumaLOG INSULIN (NovoLOG) PER UNIT SC SCH ×4 (00:19→17:37)
[2020-12-05] MEDS: CIPROFLOXACIN 400 MG in IV 1 EA IV SCH ×2 (00:19→12:47)
[2020-12-05] MEDS: IPRATROPIUM 0.5MG/ALBUTEROL 2.5MG INH SOL UD 3ML (DUONEB) NEB SCH ×3 (01:07→19:58)
[2020-12-05] MEDS: SODIUM CHLORIDE 0.9% INJ 10 ML SYR IV PRN ×4 (01:39→22:33)
[2020-12-05] MEDS: metroNIDAZOLE 500 MG in IV 1 EA IV SCH ×3 (04:03→21:03)
[2020-12-05] MEDS: SODIUM CHLORIDE 0.9% INJ 10 ML SYR IV SCH ×2 (05:21→17:37)
[2020-12-05 05:48] LABS: HEMATOCRIT 30.5 % (42.0-52.0); HEMOGLOBIN 10.1 g/dl (13.5-17.5); MEAN CORPUSCULAR HEMOGLOBIN 32.1 pg (27.0-33.0); MEAN CORPUSCULAR HGB CONC 33.1 g/dl (32.0-36.5); MEAN CORPUSCULAR VOLUME 96.8 fl (80.0-96.0); PLATELET COUNT, AUTOMATED 141 10^3/uL (150-450); RED BLOOD COUNT 3.15 10^6/uL (4.30-6.10)
[2020-12-05 06:00] VITALS: BP 127/65
[2020-12-05] MEDS: levETIRAcetam 250MG TABLET (KEPPRA) PO SCH (09:02)
[2020-12-05] MEDS: DOCUSATE SODIUM 100MG CAPSULE PO SCH ×2 (09:03→21:04)
[2020-12-05] MEDS: PANTOPRAZOLE 40MG VIAL (C9113 PER 1) IV SCH (09:03)
[2020-12-05] MEDS: METOPROLOL TART 12.5 MG PER 1/2 TAB PO SCH ×2 (09:03→21:07)
[2020-12-05] MEDS: ENOXAPARIN 80MG/0.8ML SYRINGE (J1650 PER 10MG) SC SCH ×2 (09:04→21:04)
[2020-12-05] MEDS: SIMETHICONE 80MG CHEW TAB PO SCH ×4 (09:05→21:04)
[2020-12-05] MEDS: FUROSEMIDE 40 MG TAB PO SCH (09:24)
--- NOTE | 2020-12-05 10:20 | IPNPDOC ---
Text Note Date of Service The patient was seen on 12/05/20. NOTE No acute events overnight. He is tolerating the clq diet without any nausea or emesis. He is ambulating without difficulty, and denies any bloating. VSSAF NAD abd - soft, nt, slightly more distended today than yesterday, incisions c/d/i labs - below A) 75y/o male s/p rt hemicolectomy w/ post-op ileus P) will advance to full liquid diet for now, and keep a close eye on this due to his abd distention. d/c TPN ambulate Alexandro Uribe DO VS,Fishbone, I+O VS, Fishbone, I+O Laboratory Tests 12/05/20 05:23 Vital Signs Date Time Temp Pulse Resp B/P (MAP) Pulse Ox O2 Delivery O2 Flow Rate FiO2 12/05/20 09:03 81 12/05/20 09:03 125/73 12/05/20 06:00 97.6 18 99 Room Air I&O- Last 24 Hours up to 6 AM 12/05/20 06:00 Intake Total 1470 ml Output Total 50 ml Balance 1420 ml SARITHA URIBE DO Dec 05, 2020 10:20
[2020-12-05 14:00] VITALS: BP 110/64
[2020-12-05] MEDS: SIMVASTATIN 40 MG TAB PO SCH (21:04)
[2020-12-05 22:00] VITALS: BP 105/51
[2020-12-06] MEDS: HumaLOG INSULIN (NovoLOG) PER UNIT SC SCH ×2 (00:37→06:10)
[2020-12-06] MEDS: CIPROFLOXACIN 400 MG in IV 1 EA IV SCH ×2 (00:37→12:23)
[2020-12-06] MEDS: IPRATROPIUM 0.5MG/ALBUTEROL 2.5MG INH SOL UD 3ML (DUONEB) NEB SCH ×4 (01:36→20:24)
[2020-12-06] MEDS: SODIUM CHLORIDE 0.9% INJ 10 ML SYR IV PRN ×3 (02:00→13:56)
[2020-12-06] MEDS: metroNIDAZOLE 500 MG in IV 1 EA IV SCH ×3 (05:30→21:56)
[2020-12-06] MEDS: SODIUM CHLORIDE 0.9% INJ 10 ML SYR IV SCH ×2 (05:31→17:04)
[2020-12-06 06:00] VITALS: BP 131/58
[2020-12-06] MEDS: PANTOPRAZOLE 40MG VIAL (C9113 PER 1) IV SCH (08:44)
[2020-12-06] MEDS: levETIRAcetam 250MG TABLET (KEPPRA) PO SCH (08:46)
[2020-12-06] MEDS: SIMETHICONE 80MG CHEW TAB PO SCH ×4 (08:48→21:56)
[2020-12-06] MEDS: DOCUSATE SODIUM 100MG CAPSULE PO SCH ×2 (08:49→21:56)
[2020-12-06] MEDS: FUROSEMIDE 40 MG TAB PO SCH (08:50)
[2020-12-06] MEDS: METOPROLOL TART 12.5 MG PER 1/2 TAB PO SCH ×2 (08:52→21:57)
[2020-12-06] MEDS: ENOXAPARIN 80MG/0.8ML SYRINGE (J1650 PER 10MG) SC SCH ×2 (08:53→21:57)
[2020-12-06] MEDS: glipiZIDE (GLUCOTROL) 5 MG TAB PO SCH (12:22)
[2020-12-06] MEDS: LACTOBACILLUS ACIDOPHILUS CAP (BACID) PO SCH ×2 (12:22→17:06)
--- NOTE | 2020-12-06 13:04 | IPNPDOC ---
Text Note Date of Service The patient was seen on 12/06/20. NOTE General Surgery Dr Muller. The pt is a 75-year-old male who underwent colonoscopy in August of 2020 and had a polyp which was in the right colon identified as tubular adenoma fragments that was removed/biopsied, had a follow up colonoscopy by Dr. Gaines who biopsied the area and found some high grade dysplasia, now S/P right colectomy as per Dr Muller 11/23/20, complicated by ileus likely secondary to intra-abdominal bleeding related to anticoagulant use. Currently tolerating full liquid diet. No nausea or vomiting. Reports flatus, having bowel movements, 3 yesterday. Afebrile. VSS MMM Lungs CTA S1S2 RRR Abdomen is soft, still with some distention but NT, no rebound, guarding or grimacing. Extremities well perfused, no edema. no new labs today Assessment/plan S/P Rt Colectomy 11/23/20. Post operative ileus most likely secondary to intra-abdominal bleeding secondary to his chronic anticoagulation use. The patient is reviewed and examined by Dr. Muller. Tolerating full liquids, plan to advance to consistent carbohydrate diet. Continue IV Cipro/Flagyl D8 Continue to ambulation Continue incentive spirometry. Continue to monitor. Hypertension Lisinopril/metoprolol/ Lasix po at his outpatient dose. BP controlled. PAF/AVR Mechanical Coumadin on hold. Lovenox SQ BID. 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 Plan to resume Coumadin when able as pt is noted to have mechanical AVR. CAD/CABG Metoprolol/statin DM. Consistent carbohydrate diet. Glipizide restarted. Seizure disorder. Keppra. Dyslipidemia Zocor VS,Fishbone, I+O VS, Fishbone, I+O Vital Signs Date Time Temp Pulse Resp B/P (MAP) Pulse Ox O2 Delivery O2 Flow Rate FiO2 12/06/20 08:52 71 114/49 12/06/20 06:00 98.0 20 96 12/05/20 14:00 Room Air I&O- Last 24 Hours up to 6 AM 12/06/20 06:00 Intake Total 4330 ml Output Total 800 ml Balance 3530 ml Carolina Naidu Dec 06, 2020 13:04
[2020-12-06 14:00] VITALS: BP 98/48
[2020-12-06 15:48] VITALS: BP 129/66
[2020-12-06] MEDS: SIMVASTATIN 40 MG TAB PO SCH (21:56)
[2020-12-06 22:00] VITALS: BP 159/90
[2020-12-07] MEDS: CIPROFLOXACIN 400 MG in IV 1 EA IV SCH (01:01)
[2020-12-07] MEDS: IPRATROPIUM 0.5MG/ALBUTEROL 2.5MG INH SOL UD 3ML (DUONEB) NEB SCH ×2 (01:26→07:03)
[2020-12-07] MEDS: SODIUM CHLORIDE 0.9% INJ 10 ML SYR IV PRN ×2 (02:49→08:15)
[2020-12-07] MEDS: SODIUM CHLORIDE 0.9% INJ 10 ML SYR IV SCH (05:42)
[2020-12-07] MEDS: metroNIDAZOLE 500 MG in IV 1 EA IV SCH (05:42)
[2020-12-07 06:00] VITALS: BP 124/57
[2020-12-07] MEDS: levETIRAcetam 250MG TABLET (KEPPRA) PO SCH (08:09)
[2020-12-07] MEDS: glipiZIDE (GLUCOTROL) 5 MG TAB PO SCH (08:09)
[2020-12-07] MEDS: LACTOBACILLUS ACIDOPHILUS CAP (BACID) PO SCH (08:10)
[2020-12-07] MEDS: SIMETHICONE 80MG CHEW TAB PO SCH (08:10)
[2020-12-07] MEDS: DOCUSATE SODIUM 100MG CAPSULE PO SCH (08:12)
[2020-12-07] MEDS: FUROSEMIDE 40 MG TAB PO SCH (08:13)
[2020-12-07 08:14] VITALS: BP 117/52
[2020-12-07] MEDS: METOPROLOL TART 12.5 MG PER 1/2 TAB PO SCH (08:14)
[2020-12-07] MEDS: PANTOPRAZOLE 40MG VIAL (C9113 PER 1) IV SCH (08:14)
[2020-12-07] MEDS: ENOXAPARIN 80MG/0.8ML SYRINGE (J1650 PER 10MG) SC SCH (08:16)
[2020-12-07] MEDS ORDERED: DOK1CAP7 PO (09:00)
[2020-12-07] MEDS ORDERED: WARFARIN SOD 5MG TAB PO ONE (09:00)
[2020-12-07] MEDS ORDERED: RISATAB3 PO (09:00)
--- NOTE | 2020-12-07 14:33 | DS.PDOC ---
Discharge Summary General Date of Admission Nov 23, 2020 at 08:51 Date of Discharge 12/07/20 Discharge Summary PROCEDURES PERFORMED DURING STAY: Right colectomy as per Dr Muller 11/23/20 PICC line placement 11/30/20 ADMITTING DIAGNOSES: tubular adenoma/high grade dysplasia HTN PAF AVR, mechanical. On Coumadin managed as per Dr Loyd as outpt. CAD/CABG DM Seizure disorder dyslipidemia DISCHARGE DIAGNOSES: tubular adenoma/high grade dysplasia, now S/P right colectomy as per Dr Muller 11/23/20. HTN PAF AVR, mechanical. On Coumadin managed as per Dr Loyd as outpt. CAD/CABG DM Seizure disorder dyslipidemia HISTORY OF PRESENT ILLNESS:The pt is a 75-year-old male who underwent colonoscopy in August of 2020 and had a polyp which was in the right colon identified as tubular adenoma fragments that was removed/biopsied, had a follow up colonoscopy by Dr. Gaines who biopsied the area and found some high grade dysplasia, now S/P right colectomy as per Dr Muller 11/23/20. HOSPITAL COURSE: The patient was admitted following right colectomy as per Dr. Muller 11/23/20. The patient was noted to have a decrease in hemoglobin postoperative day one from 14.4 to 10.2. This decreased further on 11/25 to 7.7. The patient received 2 units PRBCs 11/25. Subsequently, the patient's hemoglobin has been stable and at the time of discharge is noted to be 10.1. The patient was felt to have had some intra-abdominal bleeding related to chronic anticoagulant use. The patient's anticoagulation was cautiously held and subsequently the patient was placed on heparin drip 11/27 then transitioned to Lovenox 70 mg subcutaneous twice a day on 11/29/20 considering the patient is known to have mechanical aortic valve. Postoperative course was also complicated by ileus. Initially postoperatively the patient was advanced to regular diet on 11/26/20 however the patient had increasing abdominal distention and NG tube was replaced 11/27 and the patient was made NPO. The patient was placed on Cipro/Flagyl to cover for any infectious process and placed on TPN 11/30/20. CT scan abdomen/pelvis 12/01 indicated no hematoma or abscess. The patient was reporting bowel movements and slowly his distention appeared to improve. The patient was tried on clear liquids 12/04 and full liquids 12/05. TPN was discontinued. Overall, the patient continued to improve and was advanced to consistent carbohydrate diet 12/06/20 which was tolerated. By 12/07 since the patient was tolerating regular diet and having bowel movements the patient was felt stable for discharge as per Dr. Muller. DISCHARGE MEDICATIONS: Please see below. ALLERGIES: Please see below. PHYSICAL EXAMINATION ON DISCHARGE: VITAL SIGNS: Please see below. GENERAL: No acute distress, sitting on side of bed HEENT: MMM CARDIOVASCULAR EXAMINATION: S1 and S2 regular, crisp prosthetic closure. RESPIRATORY EXAMINATION: Clear to auscultation ABDOMINAL EXAMINATION: Mildly distended but same as yesterday, Soft, nontender. Surgical sites appear to be healing well. The areas were thoroughly cleaned, brissa were removed, Steri-Strips were applied. EXTREMITIES: No edema LABORATORY DATA: Please see below. DISCHARGE INSTRUCTIONS: Plan to discharge home 12/07 ACTIVITY: As tolerated. No lifting greater than 20 pounds DIET: Consistent carbohydrate The patient may shower Allow Steri-Strips to fall off on their own. Plan as discussed with Dr. Muller, restart Coumadin today. Coumadin 5 mg by mouth 1 prior to discharge this morning. Discontinue Lovenox at discharge. Coumadin 5 mg tonight and continue 5 mg daily. Advised the patient to follow-up with Dr. Loyd or Sunday of this week 12/09 or 12/10 to have his INR rechecked. Continue outpatient management of Coumadin as per Dr. Loyd. ITEMS TO FOLLOWUP ON ON OUTPATIENT: 1. Follow-up with Dr. Loyd for INR and continued Coumadin management. DISCHARGE CONDITION: Stable. TIME SPENT ON DISCHARGE: Greater than 30 minutes. Vital Signs/I&Os Vital Signs Date Time Temp Pulse Resp B/P (MAP) Pulse Ox O2 Delivery O2 Flow Rate FiO2 12/07/20 08:14 87 117/52 12/07/20 06:00 98.4 18 97 Room Air I&O- Last 24 Hours up to 6 AM 12/07/20 06:00 Intake Total 1570 ml Output Total 1625 ml Balance -55 ml Laboratory Data CBC/BMP Item Value Date Time White Blood Count 10.0 10^3/uL 12/05/20 0523 Red Blood Count 3.15 10^6/uL L 12/05/20 0523 Hemoglobin 10.1 g/dl L 12/05/20 0523 Hematocrit 30.5 % L 12/05/20 0523 Mean Corpuscular Volume 96.8 fl H 12/05/20 05 Mean Corpuscular Hemoglobin 32.1 pg 12/05/20 05 Mean Corpuscular Hemoglobin Concent 33.1 g/dl 12/05/20 0523 Red Cell Distribution Width 17.1 % H 12/05/20 05 Platelet Count 141 10^3/uL L 12/05/20 0523 Sodium Level 139 MEQ/L 12/03/20 0605 Potassium Level 3.2 MEQ/L L 12/03/20 06 Chloride Level 107 MEQ/L 12/03/20 0605 Carbon Dioxide Level 26 MEQ/L 12/03/20 06 Anion Gap 6 MEQ/L L 12/03/20 06 Blood Urea Nitrogen 15 MG/DL 12/03/20 0605 Creatinine 0.82 MG/DL 12/03/20 0605 Glomerular Filtration Rate > 60.0 12/03/20 0605 Fasting Glucose 332 MG/DL H 12/03/20 0605 Calcium Level 7.5 MG/DL L 12/03/20 0605 Prothromb Time International Ratio 1.89 11/30/20 0557 Prothromb Time International Ratio 1.78 12/01/20 0529 Prothromb Time International Ratio 1.27 12/02/20 0605 Microbiology Microbiology 11/29/20 Stool Occult Blood ([facility]) - Final, Complete Discharge Medications Scheduled Docusate Sodium (Dok) 100 Mg Capsule, 200 MG PO BID Ferrous Sulfate (Ferrous Sulfate) 325 Mg Tablet, 65 MG PO DAILY, (Reported) Furosemide (Furosemide) 40 Mg Tablet, 40 MG PO DAILY, (Reported) Glipizide (Glipizide ER) 5 Mg Tab, 5 MG PO DAILY, (Reported) L.acidoph/L.bulg/B.bif/S.therm (Mae-Bid Caplet) 1 Each Tablet, 1 EA PO WM Levetiracetam (Levetiracetam) 750 Mg Tablet, 1,500 MG PO DAILY, (Reported) Lisinopril (Lisinopril) 20 Mg Tab, 20 MG PO DAILY, (Reported) Metformin HCl (Metformin HCl) 500 Mg Tablet, 500 MG PO BID, (Reported) Metoprolol Tartrate (Metoprolol Tartrate) 25 Mg Tablet, 12.5 MG PO BID, (Reported) Simvastatin (Simvastatin) 40 Mg Tab, 40 MG PO QPM, (Reported) Warfarin Sodium (Warfarin Sodium) 5 Mg Tab, 5 MG PO DAILY, (Reported) Allergies Coded Allergies: No Known Allergies (Verified , 11/09/20) Carolina Naidu Dec 07, 2020 12:27
== END 2020-12-07 12:14 | disposition home or self-care (01) | DRG 330 ==
LOC: M OR 08:51 → M MSPAV 17:02
PROVIDERS: ADMIT Surgery; ATTEND Surgery
PROC: 0DTK4ZZ Resection of Ascending Colon, Percutaneous Endoscopic Approach (ICD-10-PCS; principal; 2020-11-23 11:05)
PROC: 30233N1 Transfusion of Nonautologous Red Blood Cells into Peripheral Vein, Percutaneous Approach (ICD-10-PCS; 2020-11-25)
PROC: 02HV33Z Insertion of Infusion Device into Superior Vena Cava, Percutaneous Approach (ICD-10-PCS; 2020-11-30)
DX: D12.2 Benign neoplasm of ascending colon (principal); K91.89 Other postprocedural complications and disorders of digestive system; D68.32 Hemorrhagic disorder due to extrinsic circulating anticoagulants; I10 Essential (primary) hypertension; E11.9 Type 2 diabetes mellitus without complications; I48.0 Paroxysmal atrial fibrillation; G40.909 Epilepsy, unspecified, not intractable, without status epilepticus; Z79.01 Long term (current) use of anticoagulants; I25.10 Atherosclerotic heart disease of native coronary artery without angina pectoris; Z79.899 Other long term (current) drug therapy; Z86.73 Personal history of transient ischemic attack (TIA), and cerebral infarction without residual deficits; E78.00 Pure hypercholesterolemia, unspecified; Z85.828 Personal history of other malignant neoplasm of skin; I34.0 Nonrheumatic mitral (valve) insufficiency; Z95.2 Presence of prosthetic heart valve; Z95.0 Presence of cardiac pacemaker

== ENCOUNTER → 2021-11-24 | Outpatient (CLI) | payer BC, MEDICARE ==
[~2021-11-24] MED LIST changes: +DOK1CAP4 PO; -LIDOCAINE 1% MDV 20ML VIAL SQ PRN; -LR 1,000 ML IV ONE; +RISATAB3 PO; -ceFAZolin SOD 2 GM in IV 1 EA IV ONE
== END ==
LOC: M LABSMTC 09:19
PROVIDERS: ATTEND Anesthesiology
DX: Z01.818 Encounter for other preprocedural examination (principal); Z11.52 Encounter for screening for COVID-19

== ENCOUNTER 2021-11-29 08:25 | Day surgery (SDC) | payer MEDICARE ==
[~2021-11-29] VITALS: Ht 172.7 cm; Wt 81.2 kg
[~2021-11-29 08:25] MED LIST changes: +LIDOCAINE 2% 100MG/5ML SDV (FOR ANES.) As Ordered ONE; +NS 1,000 ML IV ONE; +propofoL 500 MG/50 ML VIAL As Ordered ONE
[2021-11-29] MEDS ORDERED: ePHEDrine SULFATE 25 MG/5 ML(5MG/ML) SYRINGE As Ordered ONE (09:39)
[2021-11-29] MEDS ORDERED: PHENYLephrine 500MCG 5ML (100MCG/ML) SYRINGE As Ordered ONE (09:56)
[2021-11-29 10:20] VITALS: BP 125/59
== END 2021-11-29 10:38 | disposition home or self-care (01) ==
LOC: M OPP 08:25
PROVIDERS: ATTEND Internal Medicine Gastroenterology
DX: K63.5 Polyp of colon (principal); K57.30 Diverticulosis of large intestine without perforation or abscess without bleeding; K64.0 First degree hemorrhoids; Z86.010 Personal history of colon polyps; Z09 Encounter for follow-up examination after completed treatment for conditions other than malignant neoplasm; Z98.0 Intestinal bypass and anastomosis status; I48.91 Unspecified atrial fibrillation; E11.9 Type 2 diabetes mellitus without complications; Z79.84 Long term (current) use of oral hypoglycemic drugs; Z79.899 Other long term (current) drug therapy; Z86.73 Personal history of transient ischemic attack (TIA), and cerebral infarction without residual deficits; Z95.0 Presence of cardiac pacemaker; Z87.891 Personal history of nicotine dependence
CPT/HCPCS: 45385; 88305; J2370

== ENCOUNTER 2022-01-17 10:37 | Day surgery (SDC) | payer MEDICARE ==
[~2022-01-17] VITALS: Ht 170.2 cm; Wt 83.8 kg
[~2022-01-17 10:37] MED LIST changes: -LIDOCAINE 2% 100MG/5ML SDV (FOR ANES.) As Ordered ONE; -NS 1,000 ML IV ONE; -propofoL 500 MG/50 ML VIAL As Ordered ONE
[2022-01-17] MEDS ORDERED: ceFAZolin SOD 2 GM in IV 1 EA IV ONE (11:10)
[2022-01-17] MEDS ORDERED: LIDOCAINE 1% SDV 30ML VIAL As Ordered ONE (11:25)
[2022-01-17] MEDS ORDERED: ceFAZolin 1GM VIAL (J0690 PER 500MG) As Ordered ONE (11:25)
[2022-01-17] MEDS ORDERED: AMIODARONE HCL 150 MG/100 ML PREMIXED BAG (NEXTERONE) (J0282 PER 30MG) As Ordered ONE (11:25)
[2022-01-17] MEDS ORDERED: propofoL 200 MG/20 ML VIAL As Ordered ONE (11:26)
[2022-01-17] MEDS ORDERED: LIDOCAINE 2% 100MG/5ML SDV (FOR ANES.) As Ordered ONE ×2 (11:26→11:28)
[2022-01-17] MEDS ORDERED: fentaNYL 100 MCG/2 ML INJECTION As Ordered ONE (12:01)
[2022-01-17 13:35] VITALS: BP 137/65
== END 2022-01-17 13:39 | disposition home or self-care (01) ==
LOC: M SDC 10:37
PROVIDERS: ATTEND Internal Medicine Cardiovascular Disease
DX: I44.2 Atrioventricular block, complete (principal); T82.111A Breakdown (mechanical) of cardiac pulse generator (battery), initial encounter; I35.9 Nonrheumatic aortic valve disorder, unspecified; I10 Essential (primary) hypertension; I24.9 Acute ischemic heart disease, unspecified; Z95.2 Presence of prosthetic heart valve
CPT/HCPCS: 33228; 87426; C1785; J0690; J3010

== ENCOUNTER 2022-01-30 17:28 | Emergency (ER) | payer MEDICARE ==
[~2022-01-30] VITALS: Ht 172.7 cm; Wt 84.3 kg
[2022-01-30 17:29] VITALS: BP 150/76
[2022-01-30] MEDS ORDERED: ACETAMINOPHEN 500 MG TAB PO ONE (18:50)
[2022-01-30 19:05] LABS: BASO % 0.1 % (0.0-1.0); HEMATOCRIT 35.1 % (42.0-52.0); HEMOGLOBIN 11.9 g/dl (13.5-17.5); LYMPH # 0.3 10^3/uL (1.5-5.0); LYMPH % 4.7 % (24.0-44.0); MEAN CORPUSCULAR HEMOGLOBIN 31.6 pg (27.0-33.0); MEAN CORPUSCULAR HGB CONC 33.9 g/dl (32.0-36.5); MEAN CORPUSCULAR VOLUME 93.1 fl (80.0-96.0); MONO # 0.7 10^3/uL (0.0-0.8); MONO % 9.3 % (2.0-8.0); NEUTROPHILS % 85.5 % (36.0-66.0); PLATELET COUNT, AUTOMATED 145 10^3/uL (150-450); RED BLOOD COUNT 3.77 10^6/uL (4.30-6.10)
[2022-01-30 19:19] LABS: INR 1.61; PROTHROMBIN TIME 19.6 SECONDS (12.7-14.5)
[2022-01-30 19:33] LABS: CK-MB VALUE MASS 1.1 NG/ML (<3.6); MB/CK RELATIVE INDEX 0.46 (< OR =4)
[2022-01-30 19:40] LABS: CALCIUM LEVEL 8.7 MG/DL (8.8-10.2); CREATININE FOR GFR 1.33 MG/DL (0.70-1.30); GLOMERULAR FILTRATION RATE 55.7 (>42); POTASSIUM SERUM 4.1 MEQ/L (3.5-5.1)
[2022-01-30 19:41] LABS: ALBUMIN 3.7 GM/DL (3.2-5.2); BILIRUBIN,DIRECT 0.6 MG/DL (0.0-0.2); BILIRUBIN,TOTAL 1.2 MG/DL (0.2-1.0); THYROID STIMULATING HORMONE 0.71 uIU/ML (0.358-3.740); THYROXINE (T4) 7.1 UG/DL (4.5-12.0)
[2022-01-30] MEDS ORDERED: OSEL75CA PO (20:58)
== END 2022-01-30 21:17 | disposition home or self-care (01) ==
LOC: M ED 17:28
DX: J09.X9 Influenza due to identified novel influenza A virus with other manifestations (principal); E11.9 Type 2 diabetes mellitus without complications; I10 Essential (primary) hypertension; I48.91 Unspecified atrial fibrillation; E78.5 Hyperlipidemia, unspecified; R56.9 Unspecified convulsions; Z86.73 Personal history of transient ischemic attack (TIA), and cerebral infarction without residual deficits; Z95.0 Presence of cardiac pacemaker; Z95.1 Presence of aortocoronary bypass graft; Z95.4 Presence of other heart-valve replacement; Z85.828 Personal history of other malignant neoplasm of skin; Z79.01 Long term (current) use of anticoagulants; Z79.899 Other long term (current) drug therapy; Z79.84 Long term (current) use of oral hypoglycemic drugs

== ENCOUNTER → 2022-12-07 | Outpatient (CLI) | payer MEDICARE ==
[~2022-12-07] MED LIST changes: +OSEL75CA PO; +SIMV-254 PO; -ZOCO40TA PO
[2022-12-07 13:09] LABS: HEMATOCRIT 26.5 % (42.0-52.0); MEAN CORPUSCULAR HGB CONC 26.4 g/dl (32.0-36.5); MEAN CORPUSCULAR VOLUME 75.7 fl (80.0-96.0); PLATELET COUNT, AUTOMATED 207 10^3/uL (150-450); WHITE BLOOD COUNT 9.1 10^3/uL (4.0-10.0)
== END ==
LOC: M WUC 09:56
PROVIDERS: ATTEND Nurse Practitioner Family
DX: I50.32 Chronic diastolic (congestive) heart failure (principal)

== ENCOUNTER 2023-01-01 13:20 | Inpatient (IN) | payer MEDICARE ==
[~2023-01-01] VITALS: Ht 172.7 cm; Wt 88.1 kg
[2023-01-01] VITALS (10 sets, daily range): BP systolic 149–177; BP diastolic 67–87
[2023-01-01 14:34] LABS: BASO % 0.5 % (0.0-1.0); EOS % 0.5 % (0.0-3.0); HEMATOCRIT 26.2 % (42.0-52.0); LYMPH # 0.6 10^3/uL (1.5-5.0); LYMPH % 7.8 % (24.0-44.0); MEAN CORPUSCULAR HEMOGLOBIN 18.8 pg (27.0-33.0); MEAN CORPUSCULAR HGB CONC 26.3 g/dl (32.0-36.5); MEAN CORPUSCULAR VOLUME 71.2 fl (80.0-96.0); MONO # 0.8 10^3/uL (0.0-0.8); MONO % 10.4 % (2.0-8.0); NEUTROPHILS # 6.3 10^3/uL (1.5-8.5); NEUTROPHILS % 80.3 % (36.0-66.0); PLATELET COUNT, AUTOMATED 205 10^3/uL (150-450); RED BLOOD COUNT 3.68 10^6/uL (4.30-6.10); WHITE BLOOD COUNT 7.8 10^3/uL (4.0-10.0)
[2023-01-01 14:39] LABS: HEMOGLOBIN 6.9 g/dl (13.5-17.5)
[2023-01-01 14:48] LABS: INR 2.18; PROTHROMBIN TIME 24.6 SECONDS (12.5-14.5)
[2023-01-01 14:49] LABS: PARTIAL THROMBOPLASTIN TIME 35.7 SECONDS (24.8-34.2)
[2023-01-01] MEDS ORDERED: PANTOPRAZOLE 40MG VIAL IV ONE (15:05)
[2023-01-01 15:06] LABS: ALBUMIN 3.9 G/DL (3.2-5.2); BILIRUBIN,DIRECT 0.7 MG/DL (<0.4); BILIRUBIN,TOTAL 1.5 MG/DL (0.3-1.2); CK-MB VALUE MASS 1.6 NG/ML (<3.6); MB/CK RELATIVE INDEX 2.25 (< OR =4); TOTAL PROTEIN 7.1 G/DL (5.7-8.2)
[2023-01-01] MEDS ORDERED: NS 500 ML IV ONE (15:10)
[2023-01-01 15:22] LABS: RSV AMPLIFICATION NEGATIVE (NEGATIVE)
[2023-01-01] MEDS ORDERED: HOME MED LIST COMPLETE! XX SCH (15:40)
[2023-01-01] MEDS ORDERED: ISOVUE-370 76% 100ML VIAL As Ordered ONE (16:36)
[2023-01-01] MEDS ORDERED: DEXTROSE 50% 50ML SYRINGE IV PRN (17:45)
[2023-01-01] MEDS ORDERED: GLUCOSE 4GM CHEW TABLET PO PRN (17:45)
[2023-01-01] MEDS ORDERED: GLUCAGON INJ 1MG VIAL SC PRN (17:45)
[2023-01-01] MEDS ORDERED: FUROSEMIDE 20MG/2ML VIAL IV ONE (17:50)
[2023-01-01] MEDS ORDERED: ALBUTEROL SULFATE 2.5MG/0.5ML INH NEB SOLN NEB ONE (20:45)
[2023-01-01] MEDS: INSULIN LISPRO (NovoLOG) PER UNIT SC SCH (21:00)
[2023-01-01] MEDS ORDERED: FUROSEMIDE 100MG/10ML VIAL IV ONE (22:00)
[2023-01-01 22:45] LABS: ABG BASE EXCESS -2.8 (-2.0-2.0); ABG HCO3 20.4 MEQ/L (22.0-26.0); ABG O2 SATURATION 92.9 % (95.0-99.0); ABG PARTIAL PRESSURE CO2 29.4 mmHg (35.0-45.0); ABG PARTIAL PRESSURE O2 63.4 mmHg (75.0-100.0); ABG STANDARD HCO3 22.1 MEQ/L (22.0-26.0); ABG TOTAL CO2 21.3 MEQ/L (23.0-31.0); ABG pH (ARTERIAL) 7.459 UNITS (7.350-7.450)
[2023-01-01 23:31] LABS: HEMOGLOBIN 8.5 g/dl (13.5-17.5)
[2023-01-01] MEDS ORDERED: SIMVASTATIN 40 MG TAB As Ordered ONE (23:36)
[2023-01-01] MEDS ORDERED: METOPROLOL TART 12.5 MG PER 1/2 TAB As Ordered ONE (23:36)
[2023-01-01] MEDS ORDERED: levETIRAcetam 250MG TABLET (KEPPRA) As Ordered ONE (23:36)
[2023-01-01] MEDS: SIMVASTATIN 40 MG TAB PO SCH (23:39)
[2023-01-01] MEDS: levETIRAcetam 250MG TABLET (KEPPRA) PO SCH (23:39)
[2023-01-01] MEDS: METOPROLOL TART 12.5 MG PER 1/2 TAB PO SCH (23:39)
[2023-01-02] VITALS (12 sets, daily range): BP systolic 131–166; BP diastolic 62–77
[2023-01-02] MEDS ORDERED: PANTOPRAZOLE 40MG VIAL As Ordered ONE (04:37)
[2023-01-02] MEDS: PANTOPRAZOLE 40MG VIAL IV SCH ×2 (04:49→16:07)
[2023-01-02 06:46] LABS: HEMATOCRIT 28.5 % (42.0-52.0); MEAN CORPUSCULAR HEMOGLOBIN 20.3 pg (27.0-33.0); MEAN CORPUSCULAR HGB CONC 28.1 g/dl (32.0-36.5); MEAN CORPUSCULAR VOLUME 72.3 fl (80.0-96.0); PLATELET COUNT, AUTOMATED 162 10^3/uL (150-450); RED BLOOD COUNT 3.94 10^6/uL (4.30-6.10); WHITE BLOOD COUNT 6.8 10^3/uL (4.0-10.0)
[2023-01-02 07:00] LABS: INR 2.19; PROTHROMBIN TIME 24.7 SECONDS (12.5-14.5)
[2023-01-02 07:14] LABS: BLOOD UREA NITROGEN 25 MG/DL (9-23); CALCIUM LEVEL 8.3 MG/DL (8.3-10.6); CARBON DIOXIDE LEVEL 23 MMOL/L (20-31); CHLORIDE LEVEL 102 MMOL/L (98-107); CREATININE FOR GFR 1.12 MG/DL (0.70-1.30); GLOMERULAR FILTRATION RATE > 60.0 (>42); GLUCOSE, FASTING 212 MG/DL (74-106); MAGNESIUM LEVEL 1.7 MG/DL (1.8-2.4); POTASSIUM SERUM 4.2 MMOL/L (3.5-5.1); SODIUM LEVEL 135 MMOL/L (136-145)
[2023-01-02] MEDS: FERROUS SULFATE 325MG TAB PO SCH (08:15)
[2023-01-02] MEDS: METOPROLOL TART 12.5 MG PER 1/2 TAB PO SCH ×2 (08:15→20:44)
[2023-01-02] MEDS: levETIRAcetam 250MG TABLET (KEPPRA) PO SCH ×2 (08:15→20:45)
[2023-01-02] MEDS: INSULIN LISPRO (NovoLOG) PER UNIT SC SCH ×4 (08:16→21:00)
[2023-01-02] MEDS ORDERED: FUROSEMIDE 20MG/2ML VIAL IV ONE (09:00)
[2023-01-02 14:39] LABS: HEMATOCRIT 33.7 % (42.0-52.0); HEMOGLOBIN 9.3 g/dl (13.5-17.5); MEAN CORPUSCULAR HEMOGLOBIN 20.7 pg (27.0-33.0); MEAN CORPUSCULAR HGB CONC 27.6 g/dl (32.0-36.5); MEAN CORPUSCULAR VOLUME 74.9 fl (80.0-96.0); PLATELET COUNT, AUTOMATED 163 10^3/uL (150-450); WHITE BLOOD COUNT 6.4 10^3/uL (4.0-10.0)
[2023-01-02] MEDS: SIMVASTATIN 40 MG TAB PO SCH (20:44)
[2023-01-02] MEDS: DOXYCYCLINE HYCLATE 100MG TABLET PO SCH (20:45)
[2023-01-03 00:03] VITALS: BP 137/64
[2023-01-03 04:00] VITALS: BP 150/72
[2023-01-03] MEDS: PANTOPRAZOLE 40MG VIAL IV SCH ×2 (04:41→15:25)
[2023-01-03 06:18] LABS: HEMATOCRIT 32.7 % (42.0-52.0); HEMOGLOBIN 9.2 g/dl (13.5-17.5); MEAN CORPUSCULAR HEMOGLOBIN 20.9 pg (27.0-33.0); MEAN CORPUSCULAR HGB CONC 28.1 g/dl (32.0-36.5); MEAN CORPUSCULAR VOLUME 74.1 fl (80.0-96.0); PLATELET COUNT, AUTOMATED 153 10^3/uL (150-450); RED BLOOD COUNT 4.41 10^6/uL (4.30-6.10); WHITE BLOOD COUNT 6.8 10^3/uL (4.0-10.0)
[2023-01-03 06:42] LABS: INR 1.89
[2023-01-03 06:47] LABS: BLOOD UREA NITROGEN 16 MG/DL (9-23); CALCIUM LEVEL 8.8 MG/DL (8.3-10.6); CARBON DIOXIDE LEVEL 24 MMOL/L (20-31); CHLORIDE LEVEL 103 MMOL/L (98-107); CREATININE FOR GFR 1.04 MG/DL (0.70-1.30); GLOMERULAR FILTRATION RATE > 60.0 (>42); GLUCOSE, FASTING 112 MG/DL (74-106); MAGNESIUM LEVEL 1.9 MG/DL (1.8-2.4); POTASSIUM SERUM 3.8 MMOL/L (3.5-5.1); SODIUM LEVEL 138 MMOL/L (136-145)
[2023-01-03] MEDS: INSULIN LISPRO (NovoLOG) PER UNIT SC SCH ×4 (07:30→21:11)
[2023-01-03 08:00] VITALS: BP 155/68
[2023-01-03] MEDS: METOPROLOL TART 12.5 MG PER 1/2 TAB PO SCH ×2 (09:02→21:12)
[2023-01-03] MEDS: DOXYCYCLINE HYCLATE 100MG TABLET PO SCH ×2 (09:02→21:12)
[2023-01-03] MEDS: FERROUS SULFATE 325MG TAB PO SCH (09:02)
[2023-01-03] MEDS: levETIRAcetam 250MG TABLET (KEPPRA) PO SCH ×2 (09:02→21:12)
[2023-01-03 12:00] VITALS: BP 157/73
[2023-01-03 12:35] LABS: HEMATOCRIT 33.2 % (42.0-52.0); HEMOGLOBIN 9.3 g/dl (13.5-17.5)
[2023-01-03 16:09] VITALS: BP 142/64
[2023-01-03 18:35] LABS: HEMATOCRIT 33.9 % (42.0-52.0); HEMOGLOBIN 9.5 g/dl (13.5-17.5)
[2023-01-03 19:54] VITALS: BP 133/59
[2023-01-03] MEDS: SIMVASTATIN 40 MG TAB PO SCH (21:12)
[2023-01-04 00:05] VITALS: BP 133/67
[2023-01-04 00:50] LABS: HEMATOCRIT 32.7 % (42.0-52.0); HEMOGLOBIN 9.2 g/dl (13.5-17.5)
[2023-01-04 04:10] VITALS: BP 141/67
[2023-01-04] MEDS: PANTOPRAZOLE 40MG VIAL IV SCH (04:30)
[2023-01-04 06:29] LABS: HEMATOCRIT 31.7 % (42.0-52.0); HEMOGLOBIN 8.8 g/dl (13.5-17.5); MEAN CORPUSCULAR HGB CONC 27.8 g/dl (32.0-36.5); MEAN CORPUSCULAR VOLUME 75.7 fl (80.0-96.0); PLATELET COUNT, AUTOMATED 161 10^3/uL (150-450); RED BLOOD COUNT 4.19 10^6/uL (4.30-6.10); WHITE BLOOD COUNT 5.9 10^3/uL (4.0-10.0)
[2023-01-04 06:38] LABS: INR 1.73; PROTHROMBIN TIME 20.6 SECONDS (12.5-14.5)
[2023-01-04 06:56] LABS: BLOOD UREA NITROGEN 11 MG/DL (9-23); CALCIUM LEVEL 8.3 MG/DL (8.3-10.6); CARBON DIOXIDE LEVEL 24 MMOL/L (20-31); CHLORIDE LEVEL 104 MMOL/L (98-107); CREATININE FOR GFR 0.94 MG/DL (0.70-1.30); GLOMERULAR FILTRATION RATE > 60.0 (>42); GLUCOSE, FASTING 194 MG/DL (74-106); MAGNESIUM LEVEL 1.9 MG/DL (1.8-2.4); POTASSIUM SERUM 3.7 MMOL/L (3.5-5.1); SODIUM LEVEL 136 MMOL/L (136-145)
[2023-01-04 08:22] VITALS: BP 142/63
[2023-01-04 08:36] LABS: HEMATOCRIT 33.5 % (42.0-52.0); HEMOGLOBIN 9.3 g/dl (13.5-17.5)
[2023-01-04] MEDS: INSULIN LISPRO (NovoLOG) PER UNIT SC SCH ×2 (08:46→12:00)
[2023-01-04] MEDS: levETIRAcetam 250MG TABLET (KEPPRA) PO SCH (08:46)
[2023-01-04 08:47] VITALS: BP 142/63
[2023-01-04] MEDS: FERROUS SULFATE 325MG TAB PO SCH (08:47)
[2023-01-04] MEDS: METOPROLOL TART 12.5 MG PER 1/2 TAB PO SCH (08:47)
[2023-01-04] MEDS: DOXYCYCLINE HYCLATE 100MG TABLET PO SCH (08:47)
[2023-01-04] MEDS ORDERED: FUROSEMIDE 40 MG TAB PO SCH (09:00)
[2023-01-04] MEDS ORDERED: WARFARIN SOD 2.5MG TAB PO ONE (10:00)
== END 2023-01-04 13:05 | disposition home or self-care (01) | DRG 813 ==
LOC: M ED 13:20 → M PCU 17:54 → M ED INP 17:54 → M 4MAIN 22:53 → M PCU 01-02 13:27
PROVIDERS: ADMIT Internal Medicine; ATTEND Internal Medicine
PROC: 30233N1 Transfusion of Nonautologous Red Blood Cells into Peripheral Vein, Percutaneous Approach (ICD-10-PCS; principal; 2023-01-01)
DX: D68.32 Hemorrhagic disorder due to extrinsic circulating anticoagulants (principal); I44.2 Atrioventricular block, complete; I50.32 Chronic diastolic (congestive) heart failure; K92.2 Gastrointestinal hemorrhage, unspecified; I25.10 Atherosclerotic heart disease of native coronary artery without angina pectoris; I48.0 Paroxysmal atrial fibrillation; E78.5 Hyperlipidemia, unspecified; I49.5 Sick sinus syndrome; D50.0 Iron deficiency anemia secondary to blood loss (chronic); E87.70 Fluid overload, unspecified; I34.1 Nonrheumatic mitral (valve) prolapse; I11.0 Hypertensive heart disease with heart failure; E11.9 Type 2 diabetes mellitus without complications; K57.90 Diverticulosis of intestine, part unspecified, without perforation or abscess without bleeding; G40.909 Epilepsy, unspecified, not intractable, without status epilepticus; Z95.0 Presence of cardiac pacemaker; Z90.49 Acquired absence of other specified parts of digestive tract; Z95.2 Presence of prosthetic heart valve; Z86.010 Personal history of colon polyps; Z98.0 Intestinal bypass and anastomosis status; Z87.891 Personal history of nicotine dependence; Z79.01 Long term (current) use of anticoagulants; Z79.84 Long term (current) use of oral hypoglycemic drugs; Z79.899 Other long term (current) drug therapy; Z86.73 Personal history of transient ischemic attack (TIA), and cerebral infarction without residual deficits; Z95.1 Presence of aortocoronary bypass graft; Z95.4 Presence of other heart-valve replacement

== ENCOUNTER → 2023-01-15 | Outpatient (CLI) | payer MEDICARE ==
[2023-01-15 17:18] LABS: PERCENT SATURATION 78.3 % (19.7-50.0)
== END ==
LOC: M WUC 11:34
PROVIDERS: ATTEND Nurse Practitioner Family
DX: D50.9 Iron deficiency anemia, unspecified (principal)

== ENCOUNTER 2023-03-22 06:35 | Day surgery (SDC) | payer MEDICARE ==
[~2023-03-22] VITALS: Ht 175.3 cm; Wt 84.4 kg
[~2023-03-22 06:35] MED LIST changes: +NS 1,000 ML IV ONE
[2023-03-22] MEDS ORDERED: propofoL 200 MG/20 ML VIAL As Ordered ONE ×2 (07:33→07:39)
[2023-03-22 07:59] VITALS: TEMP 96.9
[2023-03-22 08:25] VITALS: BP 136/71; O2SAT 97
== END 2023-03-22 08:30 | disposition home or self-care (01) ==
LOC: M OPP 06:35
PROVIDERS: ATTEND Surgery
DX: Z86.010 Personal history of colon polyps (principal); K57.30 Diverticulosis of large intestine without perforation or abscess without bleeding; K21.00 Gastro-esophageal reflux disease with esophagitis, without bleeding; K29.70 Gastritis, unspecified, without bleeding; D50.9 Iron deficiency anemia, unspecified; Z87.891 Personal history of nicotine dependence; Z79.01 Long term (current) use of anticoagulants; Z79.02 Long term (current) use of antithrombotics/antiplatelets
CPT/HCPCS: 43239; 88305; G0105

== ENCOUNTER → 2023-03-26 | Outpatient (CLI) | payer MEDICARE ==
[~2023-03-26] MED LIST changes: -NS 1,000 ML IV ONE
== END ==
LOC: M RAD 12:29
PROVIDERS: ATTEND Physician Assistant
DX: R60.0 Localized edema (principal)

== ENCOUNTER → 2023-03-29 | Outpatient (CLI) | payer MEDICARE ==
[2023-03-29 12:07] LABS: HEMATOCRIT 38.5 % (42.0-52.0); HEMOGLOBIN 12.4 g/dl (13.5-17.5); MEAN CORPUSCULAR HEMOGLOBIN 30.5 pg (27.0-33.0); MEAN CORPUSCULAR HGB CONC 32.2 g/dl (32.0-36.5); MEAN CORPUSCULAR VOLUME 94.6 fl (80.0-96.0); PLATELET COUNT, AUTOMATED 117 10^3/uL (150-450); RED BLOOD COUNT 4.07 10^6/uL (4.30-6.10); WHITE BLOOD COUNT 6.5 10^3/uL (4.0-10.0)
[2023-03-29 12:38] LABS: ALBUMIN 3.6 G/DL (3.2-5.2); ALKALINE PHOSPHATASE 131 U/L (46-116); ALT/SGPT 15 U/L (7.0-40); AST/SGOT 27 U/L (<34); BLOOD UREA NITROGEN 20 MG/DL (9-23); CALCIUM LEVEL 9.2 MG/DL (8.3-10.6); CARBON DIOXIDE LEVEL 30 MMOL/L (20-31); CHLORIDE LEVEL 100 MMOL/L (98-107); GLOMERULAR FILTRATION RATE > 60.0 (>42); GLUCOSE, FASTING 171 MG/DL (74-106); POTASSIUM SERUM 3.1 MMOL/L (3.5-5.1); SODIUM LEVEL 139 MMOL/L (136-145); TOTAL PROTEIN 6.7 G/DL (5.7-8.2)
== END ==
LOC: M LAB 11:28
PROVIDERS: ATTEND Nurse Practitioner Family
DX: D50.0 Iron deficiency anemia secondary to blood loss (chronic) (principal); I50.32 Chronic diastolic (congestive) heart failure

== ENCOUNTER → 2023-09-22 | Outpatient (CLI) | payer MEDICARE ==
[~2023-09-22] MED LIST changes: +GLIP5TAB17 PO; -GLIP5TAB8 PO
[2023-09-22 10:31] LABS: HEMATOCRIT 32.3 % (42.0-52.0); HEMOGLOBIN 9.3 g/dl (13.5-17.5); MEAN CORPUSCULAR HEMOGLOBIN 25.9 pg (27.0-33.0); MEAN CORPUSCULAR HGB CONC 28.8 g/dl (32.0-36.5); PLATELET COUNT, AUTOMATED 162 10^3/uL (150-450); RED BLOOD COUNT 3.59 10^6/uL (4.30-6.10); WHITE BLOOD COUNT 6.2 10^3/uL (4.0-10.0)
== END ==
LOC: M LAB 09:47
PROVIDERS: ATTEND Nurse Practitioner Family
DX: I48.20 Chronic atrial fibrillation, unspecified (principal); Z95.818 Presence of other cardiac implants and grafts

== ENCOUNTER → 2023-09-25 | Outpatient (CLI) | payer MEDICARE ==
[2023-09-25 11:04] LABS: BLOOD UREA NITROGEN 18 MG/DL (9-23); CALCIUM LEVEL 8.6 MG/DL (8.3-10.6); CARBON DIOXIDE LEVEL 30 MMOL/L (20-31); CHLORIDE LEVEL 102 MMOL/L (98-107); CREATININE FOR GFR 0.99 MG/DL (0.70-1.30); GLOMERULAR FILTRATION RATE > 60.0 (>42); GLUCOSE, FASTING 240 MG/DL (74-106); IRON (FE) 167 UG/DL (65-175); PERCENT SATURATION 42.2 % (19.7-50.0); POTASSIUM SERUM 4.1 MMOL/L (3.5-5.1); SODIUM LEVEL 138 MMOL/L (136-145); TOTAL IRON BINDING CAPACITY 396 UG/DL (250-425)
== END ==
LOC: M LAB 09:44
PROVIDERS: ATTEND Nurse Practitioner Family
DX: I50.32 Chronic diastolic (congestive) heart failure (principal); D50.9 Iron deficiency anemia, unspecified; I48.20 Chronic atrial fibrillation, unspecified

== ENCOUNTER → 2023-12-31 | Outpatient (CLI) | payer MEDICARE ==
[2023-12-31 11:03] LABS: BASO # 0.1 10^3/uL (0.0-0.2); BASO % 0.8 % (0.0-1.0); EOS # 0.1 10^3/uL (0.0-0.5); EOS % 1.1 % (0.0-3.0); HEMATOCRIT 30.4 % (42.0-52.0); HEMOGLOBIN 8.6 g/dl (13.5-17.5); LYMPH # 0.6 10^3/uL (1.5-5.0); LYMPH % 8.1 % (24.0-44.0); MEAN CORPUSCULAR HEMOGLOBIN 23.4 pg (27.0-33.0); MEAN CORPUSCULAR HGB CONC 28.3 g/dl (32.0-36.5); MEAN CORPUSCULAR VOLUME 82.6 fl (80.0-96.0); MONO # 0.6 10^3/uL (0.0-0.8); MONO % 8.5 % (2.0-8.0); PLATELET COUNT, AUTOMATED 169 10^3/uL (150-450); RED BLOOD COUNT 3.68 10^6/uL (4.30-6.10); WHITE BLOOD COUNT 7.4 10^3/uL (4.0-10.0)
[2023-12-31 11:38] LABS: BLOOD UREA NITROGEN 23 MG/DL (9-23); CREATININE FOR GFR 1.04 MG/DL (0.70-1.30); GLOMERULAR FILTRATION RATE > 60.0 (>42); IRON (FE) 118 UG/DL (65-175); PERCENT SATURATION 28.9 % (19.7-50.0); TOTAL IRON BINDING CAPACITY 409 UG/DL (250-425)
[2023-12-31 11:39] LABS: FERRITIN 12.4 NG/ML (10.5-307.3)
== END ==
LOC: M LAB 10:15
PROVIDERS: ATTEND Internal Medicine Gastroenterology
DX: D50.9 Iron deficiency anemia, unspecified (principal)

== ENCOUNTER → 2024-02-22 | Outpatient (CLI) | payer MEDICARE ==
[~2024-02-22] MED LIST changes: +E-Z-GAS II EFFERVESCENT PACKET (SODIUM BICARB./CITRIC ACID/SIMETHICONE) As Ordered ONE; +E-Z-HD 98% w/w 340GM SUSP BTL As Ordered ONE; +E-Z-PAQUE 96% w/w SUSP 176GM BTL As Ordered ONE
== END ==
LOC: M RAD 08:51
PROVIDERS: ATTEND Internal Medicine Gastroenterology
DX: D50.9 Iron deficiency anemia, unspecified (principal)

== ENCOUNTER 2024-06-12 12:18 | Day surgery (SDC) | payer MEDICARE ==
[~2024-06-12] VITALS: Ht 167.6 cm; Wt 75.9 kg
[~2024-06-12 12:18] MED LIST changes: -E-Z-GAS II EFFERVESCENT PACKET (SODIUM BICARB./CITRIC ACID/SIMETHICONE) As Ordered ONE; -E-Z-HD 98% w/w 340GM SUSP BTL As Ordered ONE; -E-Z-PAQUE 96% w/w SUSP 176GM BTL As Ordered ONE; +METO50TA7 PO; +OMEP40CA5 PO; +POTA-151 PO; +SUCR1TAB56 PO; +TORS20TA2 PO
[2024-06-12] MEDS: NS 1,000 ML IV ONE (14:20)
[2024-06-12] MEDS ORDERED: LIDOCAINE 2% 100MG/5ML SDV (FOR ANES.) As Ordered ONE (14:43)
[2024-06-12] MEDS ORDERED: propofoL 200 MG/20 ML VIAL As Ordered ONE (14:43)
[2024-06-12] MEDS ORDERED: GLYCOPYRROLATE INJ 0.2 MG/ML 2 ML VIAL As Ordered ONE (15:05)
[2024-06-12 15:28] VITALS: TEMP 98
[2024-06-12 15:48] VITALS: BP 136/61; O2SAT 95
== END 2024-06-12 15:49 | disposition home or self-care (01) ==
LOC: M OPP 12:18
PROVIDERS: ATTEND Internal Medicine Gastroenterology
DX: D50.9 Iron deficiency anemia, unspecified (principal); I48.91 Unspecified atrial fibrillation; I25.10 Atherosclerotic heart disease of native coronary artery without angina pectoris; I10 Essential (primary) hypertension; E78.00 Pure hypercholesterolemia, unspecified; E11.9 Type 2 diabetes mellitus without complications; Z79.01 Long term (current) use of anticoagulants; Z95.0 Presence of cardiac pacemaker; Z86.73 Personal history of transient ischemic attack (TIA), and cerebral infarction without residual deficits; Z95.1 Presence of aortocoronary bypass graft; Z79.84 Long term (current) use of oral hypoglycemic drugs; Z79.899 Other long term (current) drug therapy; Z85.828 Personal history of other malignant neoplasm of skin; Z95.2 Presence of prosthetic heart valve; Z90.49 Acquired absence of other specified parts of digestive tract
CPT/HCPCS: 43235; J1596

== ENCOUNTER → 2024-08-30 | Outpatient (REF) | payer MEDICARE | LOC: M LAB REF 18:07 | PROVIDERS: ATTEND Physician Assistant | DX: B34.9 Viral infection, unspecified (principal) ==

== ENCOUNTER 2025-05-27 15:53 | Emergency (ER) | payer MEDICARE ==
[~2025-05-27] VITALS: Ht 170.2 cm; Wt 75.3 kg
[2025-05-27] MEDS: PANTOPRAZOLE 40MG VIAL IV ONE (17:13)
[2025-05-27 17:48] LABS: IRON (FE) 333.0 UG/DL (65-175); PERCENT SATURATION 86.9 % (19.7-50.0)
[2025-05-27] MEDS: CALCIUM CHLORIDE 10% 1 GM/10 ML SYR IV ONE (17:48)
[2025-05-27 18:29] VITALS: BP 131/58; TEMP 97.3; O2SAT 100
[2025-05-27 18:46] VITALS: BP 125/64; TEMP 97.5; O2SAT 100
[2025-05-27 18:52] LABS: INR 3.63
[2025-05-27 20:19] VITALS: BP 127/61; TEMP 96.6; O2SAT 99
[2025-05-27] MEDS ORDERED: FUROSEMIDE 20 MG/2 ML VIAL IV ONE (20:45)
[2025-05-27 21:42] VITALS: BP 146/63; TEMP 96.7; O2SAT 100
== END 2025-05-27 21:43 | disposition short-term general hospital (02) ==
LOC: M ED 15:53
DX: K92.2 Gastrointestinal hemorrhage, unspecified (principal); D64.9 Anemia, unspecified; I48.91 Unspecified atrial fibrillation; Z95.1 Presence of aortocoronary bypass graft; Z95.0 Presence of cardiac pacemaker
CPT/HCPCS: 36430; 83550; 85610; 85730; 86850; 86900; 86901; 86920; 93005; 93041; 96374; 96375; 99285; J0618; J2470; P9016

== ENCOUNTER → 2025-05-27 | Outpatient (CLI) | payer MEDICARE ==
[~2025-05-27] MED LIST changes: +GLIP-318 PO; -GLIP5TAB20 PO
[2025-05-27 15:22] LABS: BASO # 0.0 10^3/uL (0.0-0.2); BASO % 0.4 % (0.0-1.0); EOS # 0.0 10^3/uL (0.0-0.5); EOS % 0.3 % (0.0-3.0); LYMPH # 0.5 10^3/uL (1.5-5.0); LYMPH % 4.8 % (24.0-44.0); MONO # 0.9 10^3/uL (0.0-0.8); MONO % 8.5 % (2.0-8.0); NEUTROPHILS # 8.9 10^3/uL (1.5-8.5); NEUTROPHILS % 84.4 % (36.0-66.0); PLATELET COUNT, AUTOMATED 230 10^3/uL (150-450)
[2025-05-27 15:59] LABS: ALT/SGPT 19.0 U/L (7.0-40); AST/SGOT 16.0 U/L (<34); CALCIUM LEVEL 8.6 MG/DL (8.3-10.6); CARBON DIOXIDE LEVEL 19.0 MMOL/L (20-31); CHLORIDE LEVEL 100.0 MMOL/L (98-107); CREATININE FOR GFR 1.23 MG/DL (0.70-1.30); GLOMERULAR FILTRATION RATE 59.7 (>42); POTASSIUM SERUM 5.6 MMOL/L (3.5-5.1); SODIUM LEVEL 130.0 MMOL/L (136-145)
== END ==
LOC: M LAB 14:41
PROVIDERS: ATTEND Internal Medicine Cardiovascular Disease
DX: D50.0 Iron deficiency anemia secondary to blood loss (chronic) (principal)

== ENCOUNTER → 2025-06-12 | Outpatient (CLI) | payer MEDICARE ==
[2025-06-12 10:13] LABS: PLATELET COUNT, AUTOMATED 196 10^3/uL (150-450)
== END ==
LOC: M LAB 09:39
PROVIDERS: ATTEND Internal Medicine Cardiovascular Disease
DX: D50.0 Iron deficiency anemia secondary to blood loss (chronic) (principal); I48.20 Chronic atrial fibrillation, unspecified